=== PATIENT | female | born 1950 | race Caucasian/White ===

== ENCOUNTER → 2016-10-18 | Outpatient (CLI) | payer BC ==
[~2016-10-18] MED LIST: CALCTAB5 PO; CLR/5 PO; CRAN1CAP15 PO; GLUCOSAMINE CHON PO; HYDR-5688 PO; LORA-741 PO; MELA1TAB5 PO; MSM PO; MULT-506 PO; OMEP40CA PO; TRIA3AER NAE; red yeast rice PO
[2016-10-18 13:34] LABS: CREATININE 0.92 mg/dl (0.60-1.20)
== END | disposition home or self-care (01) ==
LOC: C.LAB 14:32
PROVIDERS: ATTEND Otolaryngology
DX: C76.0 Malignant neoplasm of head, face and neck (principal)

== ENCOUNTER → 2016-12-03 | Outpatient (CLI) | payer BC ==
[2016-12-07 18:31] LABS: MUMPS IgG VALUE 3.24; MUMPS VIRUS ANTIBODY IGM <1:20
== END | disposition home or self-care (01) ==
LOC: C.LABSPEC 15:19
PROVIDERS: ATTEND Internal Medicine
DX: K11.20 Sialoadenitis, unspecified (principal)

== ENCOUNTER → 2016-12-14 | Outpatient (CLI) | payer BC ==
[2016-12-14 14:00] LABS: BLOOD UREA NITROGEN 10 mg/dl (7-18); BUN/CREATININE RATIO 11.3 (10-20); CARBON DIOXIDE 29 mmol/L (21-32); CHLORIDE 104 mmol/L (98-107); CREATININE 0.87 mg/dl (0.60-1.20); GLUCOSE 149 mg/dl (70-99); POTASSIUM 3.5 mmol/L (3.5-5.1); SODIUM 141 mmol/L (136-145)
== END | disposition home or self-care (01) ==
LOC: C.LABSPEC 12:19
PROVIDERS: ATTEND Internal Medicine
DX: R51 Headache (principal)

== ENCOUNTER → 2016-12-18 | Outpatient (CLI) | payer BC ==
[~2016-12-18] MED LIST changes: +GADAVIST IV PRN
--- NOTE | 2016-12-18 08:01 | DIAGNOSTIC IMAGING REPORT ---
MRI OF THE BRAIN WITHOUT AND WITH IV CONTRAST CLINICAL HISTORY: Severe headaches. 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 COMPARISON STUDY: No previous studies for comparison. TECHNIQUE: MRI of the brain was performed from the vertex to the skull base utilizing various T1 and T2 weighted sequences. Following the IV administration of 6 mL of Gadavist contrast, additional enhanced images were obtained. FINDINGS: Sagittal T1, axial diffusion, proton density and T2 weighted axial, coronal FLAIR, and pre and post axial T1-weighted images were acquired. These were supplemented with post gadolinium coronal T1 weighted images. No intra or extra-axial mass lesions are visualized. Axial diffusion-weighted images reveal no evidence of acute or subacute infarction. There is no evidence of ventricular dilatation. Proton density T2-weighted and FLAIR images reveal minimal foci of increased T2 signal within the white matter, likely on a small vessel basis. There are no abnormal flow voids. There is no evidence of pathologic enhancement. There are extensive foci of increased T2 signal within the mastoids, likely an inflammatory basis. On the left there is extension to the petrous apex. There is bilateral maxillary sinus mucosal disease within the left maxilla sinus air-fluid level. Inflammatory changes are present within the ethmoid and sphenoid sinuses. There is mild mucosal thickening involving the frontal sinus. IMPRESSION: 1. Extensive sinus disease, most pronounced involving the mastoids, with involvement of the left petrous apex. 2. No evidence of intracranial mass. No evidence of acute or subacute infarction Electronically signed by: Ronak Balderas M.D. 12/18/2016 8:00 AM Dictated Date/Time: 12/18/2016 7:55 AM
== END | disposition home or self-care (01) ==
LOC: C.MRI 06:47
PROVIDERS: ATTEND Internal Medicine
DX: C44.42 Squamous cell carcinoma of skin of scalp and neck (principal); R51 Headache; J32.9 Chronic sinusitis, unspecified

== ENCOUNTER → 2017-03-13 | Outpatient (CLI) | payer OTHER ==
[~2017-03-13] MED LIST changes: -GADAVIST IV PRN
--- NOTE | 2017-03-13 14:48 | MAMMOGRAPHY REPORT ---
BILATERAL DIGITAL SCREENING MAMMOGRAM WITH CAD: 03/13/2017 CLINICAL HISTORY: Routine screening. Patient has no complaints. TECHNIQUE: Current study was also evaluated with a Computer Aided Detection (CAD) system. Bilateral CC and MLO views were obtained. COMPARISON: Comparison is made to exams dated: 03/12/2016 mammogram, 03/10/2015 mammogram, 03/01/2014 ma mmogram, 02/24/2013 mammogram, 02/07/2012 mammogram, and 01/31/2011 mammogram - [facility]. BREAST COMPOSITION: There are scattered areas of fibroglandular density in both breasts. FINDINGS: No suspicious masses, calcifications, or areas of architectural distortion are noted in ei ther breast. There has been no significant interval change compared to prior exams. Bilateral asymme tries are stable. A biopsy marker clip in the left upper outer quadrant is again noted. IMPRESSION: ACR BI-RADS CATEGORY 2: BENIGN There is no mammographic evidence of malignancy. A 1 year screening mammogram is recommended. The pa tient will receive written notification of the results. Approximately 10% of breast cancers are not detected with mammography. A negative mammographic report should not delay biopsy if a clinically suggestive mass is present. Juliet Alexis M.D. /:03/13/2017 12:36:58 Content Development Specialist: Claribel Donovan, [facility] letter sent: Normal 1/2 BI-RADS Code: ACR BI-RADS Category 2: Benign
== END | disposition home or self-care (01) ==
LOC: C.MAMM 12:15
PROVIDERS: ATTEND Obstetrics & Gynecology
DX: Z12.31 Encounter for screening mammogram for malignant neoplasm of breast (principal)

== ENCOUNTER → 2017-03-15 | Outpatient (CLI) | payer OTHER | END | disposition home or self-care (01) | LOC: C.LAB1850 10:07 | PROVIDERS: ATTEND Obstetrics & Gynecology | DX: N83.201 Unspecified ovarian cyst, right side (principal) ==

== ENCOUNTER → 2017-03-15 | Outpatient (CLI) | payer OTHER | END | disposition home or self-care (01) | LOC: C.PAPS 03-14 11:43 | PROVIDERS: ATTEND Obstetrics & Gynecology | DX: Z12.4 Encounter for screening for malignant neoplasm of cervix (principal); N81.10 Cystocele, unspecified; N81.4 Uterovaginal prolapse, unspecified ==

== ENCOUNTER → 2017-04-09 | Outpatient (CLI) | payer OTHER ==
--- NOTE | 2017-04-09 12:15 | DIAGNOSTIC IMAGING REPORT ---
CAROTID DOPPLER NECK ART HISTORY: Mental status change SQUAMOUS CELL SKIN CANCER ;HX THYROID CA COMPARISON: None. TECHNIQUE: Real-time, grayscale, and color Doppler sonography of the carotid arteries was performed. Imaging reviewed in the transverse and longitudinal planes. All measurements were calculated based on NASCET criteria. FINDINGS: Antegrade flow is seen in the bilateral vertebral arteries. The brachial pressures are hemodynamically similar. Mild plaque formation bilaterally The peak systolic velocity within the right ICA is 87. The right systolic ratio is 1.0. The peak systolic velocity within the left ICA is 83. The left systolic ratio is 1.0. IMPRESSION: Mild plaque formation. No significant stenosis. The above report was generated using voice recognition software. It may contain grammatical, syntax or spelling errors. Electronically signed by: Damien Holland M.D. 04/09/2017 12:13 PM Dictated Date/Time: 04/09/2017 12:12 PM
== END | disposition home or self-care (01) ==
LOC: C.ULTR 11:25
PROVIDERS: ATTEND Internal Medicine Hematology & Oncology
DX: C44.49 Other specified malignant neoplasm of skin of scalp and neck (principal); I65.23 Occlusion and stenosis of bilateral carotid arteries; Z85.850 Personal history of malignant neoplasm of thyroid

== ENCOUNTER → 2017-09-19 | Outpatient (CLI) | payer OTHER ==
--- NOTE | 2017-09-19 16:10 | DIAGNOSTIC IMAGING REPORT ---
CT SCAN OF THE PARANASAL SINUSES CLINICAL HISTORY: Allergic rhinitis. History of squamous cell carcinoma. COMPARISON STUDY: CT of the brain dated 04/30/2017. MRI of the brain dated 04/30/2017. TECHNIQUE: High-resolution CT scan of the paranasal sinuses is performed. Images are reviewed in the axial, sagittal, and coronal planes. IV contrast was not administered for this examination. The examination is performed using the fusion protocol. A dose lowering technique was utilized adhering to the principles of ALARA. CT DOSE: 621.20 mGy.cm FINDINGS: Postoperative change: There is evidence of left maxillary antrectomy with antrostomy formation and left-sided ethmoid sinus resection. There has been widening of the left frontoethmoidal recess. Maxillary antra: There is mild to moderate mucosal thickening seen bilaterally. Anterior ethmoid sinuses: Moderate mucosal thickening is seen bilaterally. Posterior ethmoid sinuses: Mild mucosal thickening is seen bilaterally. Sphenoid sinuses: Mild mucosal thickening is seen bilaterally. Frontal sinuses: Trace mucosal thickening is seen bilaterally. Ostiomeatal complexes: The left maxillary antrostomy is widely patent. There is near complete occlusion of the right ostiomeatal complex. Frontoethmoidal and sphenoethmoidal recesses: The right frontoethmoidal recess appears occluded. The left frontal recess is widely patent. The sphenoid recesses are patent, noting narrowing on the right secondary to mucosal thickening. Carotid arteries: The carotid arteries are covered and without septal attachments. Ethmoid roofs: The left ethmoid roof is surgically absent. There has also been resection of the medial wall of the left orbit and a portion of the left nasal bone. Nasal turbinates: The left middle nasal turbinate is surgically absent. Nasal septum: There is mild left lower deviation of the bony nasal septum. Optic nerves: Covered. Orbits: The medial wall of the left orbit is been resected. The bony orbits are otherwise intact. A calcification is noted in the left ocular globe. Orbital contents are otherwise normal in appearance. Calvarium: The imaged calvarium appears intact. Mastoid air cells: There are small right and trace left mastoid effusions. Brain parenchyma: There is bifrontal edema which appears increased from the 04/30/2017 examination. IMPRESSION: 1. There is edema present within the frontal lobes bilaterally, which appears increased from 04/30/2017. This could represent neoplastic involvement, posttreatment change, or less likely infection. Clinical correlation will be essential. 2. Postoperative changes as above including resection of the left ethmoid roof, the medial wall of the left orbit, and a portion of the left nasal bone in addition to the above paranasal sinus findings. 3. Paranasal sinus disease as above. 4. Mastoid effusions. Electronically signed by: Saul Kemp M.D. 09/19/2017 4:08 PM Dictated Date/Time: 09/19/2017 4:00 PM
== END | disposition home or self-care (01) ==
LOC: C.CTS 15:48
PROVIDERS: ATTEND Physician Assistant
DX: J30.81 Allergic rhinitis due to animal (cat) (dog) hair and dander (principal); H74.90 Unspecified disorder of middle ear and mastoid, unspecified ear; J32.9 Chronic sinusitis, unspecified

== ENCOUNTER → 2017-10-02 | Outpatient (CLI) | payer OTHER ==
[2017-10-02 13:29] LABS: BLOOD UREA NITROGEN 12 mg/dl (7-18); CALCIUM 9.1 mg/dl (8.5-10.1); CARBON DIOXIDE 30 mmol/L (21-32); CREATININE 0.83 mg/dl (0.60-1.20); GLUCOSE 92 mg/dl (70-99); POTASSIUM 3.6 mmol/L (3.5-5.1); SODIUM 141 mmol/L (136-145)
[2017-10-02 13:41] LABS: CHOLESTEROL 220 mg/dl (0-200); LDL CHOLESTEROL (DIRECT) 143 mg/dl
== END | disposition home or self-care (01) ==
LOC: C.LABSPEC 12:14
PROVIDERS: ATTEND Internal Medicine
DX: Z00.00 Encounter for general adult medical examination without abnormal findings (principal); E03.9 Hypothyroidism, unspecified

== ENCOUNTER 2021-09-08 21:16 | Inpatient (IN) ==
[2021-09-08] MEDS ORDERED: ONDANSETRON INJ 2 MG/ML 2 ML VIAL IV STA (21:30)
[2021-09-08] MEDS ORDERED: fentaNYL citrate 100 MCG/2 ML VIAL ONE (21:32)
[2021-09-08] MEDS: fentaNYL citrate 100 MCG/2 ML VIAL IV PRN ×3 (21:58→23:25)
--- NOTE | 2021-09-08 22:18 | Emergency Department Note ---
Impression & Plan Abdominal pain, acute ED Provider Note INFORMANT: Patient ED PROVIDER(S): Kristian King MD CHIEF COMPLAINT: Abdominal pain PLAN: Disposition: Admitted Condition: Good Outpatient prescription management: none Referral: None MEDICAL DECISION MAKING: Patient presented to the emergency department because of acute abdominal pain. She was quite uncomfortable and required multiple doses of IV fentanyl for symptom control. She underwent CT imaging without contrast and this revealed a large amount of free air. G-tube appeared to be in good position. Some free fluid also noted. Consultation was made with Dr. Rodriguez of gastroenterology who is covering for Dr. Gonzalez. We discussed the case and presentation. We reviewed the diagnostics. Patient CBC did show mild leukocytosis. Repeat CT with IV and a small amount of contrast in the G-tube was determined to be the next step to evaluate for any possible perforation, leaking, or other complication. The patient underwent CT imaging with the contrast. No obvious extravasation was noted per radiology. No hemorrhage noted. There was free fluid noted in the pelvis and the right paracolic gutter. Hemoperitoneum was redemonstrated. Dr. Rodriguez recommended surgical consultation and will be available for additional consultation as well. I discussed the case with Dr. Otero of general surgery. Given the findings he recommended patient be admitted to the hospital service for observation and pain control. He will consult on the patient. He is reviewing the CT imaging. He felt at this point emergent surgical intervention is not necessary. I did discuss the possibility of a prophylactic dose of antibiotics and he agreed. The patient was given a dose of IV Rocephin and Flagyl. I did discuss this with the pharmacist. Patient and family were updated. Consultation was made [facility] hospitalist service. Dr. Corrales will admit the patient. Triage Nursing notes reviewed and agree them. Vital Signs: reviewed and remarkable for no significant abnormalities Differential diagnosis: Complication of G-tube, appendicitis, infections, diverticulitis, UTI, obstruction, mesenteric ischemia, aortic pathology, inflammatory bowel disease, renal colic, PUD, pancreatitis, biliary pathology, hernia, volvulus, constipation, as well as other pathologies. Diagnostics interpreted by me: ECG: none Cardiac Monitoring: Cardiac monitoring ordered by me: The patient was placed on continuous cardiac monitoring and observed. It revealed a normal sinus rhythm at 70 beats per minute without ectopy or evidence of dysrhythmia. Imaging studies: CT scans as outlined above. I refer you to the EMR for further details. HPI: The patient is a 71 year old female who presents to the Emergency Room with complaints of abdominal pain. This started this afternoon and is rapidly worsening. The patient also notes the following associated symptoms, none. The patient had a G-tube placed today by Dr. Gonzalez. She has had problems with swallowing dysfunction and aspiration. She underwent the procedure without difficulty. At home she was given 120 mL feeding and 120 mL flush. She developed acute worsening of her discomfort in the mid aspect of her abdomen. EMS was summoned. She was given IV fentanyl with some relief of her discomfort. Current pain is rated as 7/10. Pt denies LOC, headache, fevers, chills, diaphoresis, visual changes, neck pain, chest pain, breathing difficulties, nausea, vomiting, back pain, melena, hematochezia, urinary symptoms, numbness, weakness, lymphadenopathy, rash, or other complaints. ROS: See above HPI for pertinent positives & negatives. A total of 10 systems reviewed and were otherwise negative. PAST MEDICAL HISTORY:See Below , anemia, skin cancer PAST SURGICAL HISTORY:See Below, G-tube FAMILY HISTORY:See Below SOCIAL HISTORY:See Below, no alcohol. HOME MEDICATIONS:See Below ALLERGIES:See Below VITALS:See Below PHYSICAL EXAMINATION: GENERAL: Awake, alert, very uncomfortable-appearing, in mild distress HENT: Normocephalic, atraumatic. Oropharynx unremarkable. EYES: Normal conjunctiva. Sclera non-icteric. NECK: Inspection normal. Non-tender. Supple. No nuchal rigidity. FROM. No masses. RESPIRATORY: Clear to auscultation. No wheezes. No rales. Normal respiratory effort. CARDIAC: Normal rate. Normal rhythm. No murmurs. No rubs. Extremities warm and well perfused. Pulses equal. No JVD. GI: Soft, non-distended. Diffuse but mostly midline tenderness to palpation. No rebound but moderate guarding. No masses. G-tube in position without signs of bleeding or infection. RECTAL: Deferred. MUSCULOSKELETAL: Atraumatic. Chest examination reveals no tenderness. The back is symmetrical on inspection without obvious abnormality. There is no CVA tenderness to palpation. No joint edema. LOWER EXTREMITIES: Calves are equal size bilaterally and non-tender. No edema. No discoloration. NEURO: Normal sensorium. No sensory or motor deficits noted. SKIN: No rash or jaundice noted. 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, chemo (2009), proton pump treatment/radiation Sensorineural hearing loss (SNHL) of both ears Vaginal pessary present STILL INTACT Surgical History History of anesthesia reaction "Small mouth opening" > has had to have pediatric tube in past S/P Right foot cheilectomy (05/27/19): LMA#3 at [facility] [place] History of breast biopsy History of cataract surgery R/L History of colonoscopy History of dilatation and curettage History of endoscopic sinus surgery x2 (removal of cancer and then to open up sinus) History of esophagogastroduodenoscopy (EGD) History of foot surgery Right foot cheilectomy (05/27/19): LMA#3 at [facility] [place] History of placement of ear tubes History of surgical removal of ganglion cyst History of temporal artery biopsy (08/16/21) Bilateral Temporal Artery Biopsy Dr. Claire 08/16/2021 History of tonsillectomy and adenoidectomy Hx of eye surgery Attempted to open tear ducts Hx of lymph node excision r/t cancer Family History Mother Family hx of colon cancer Colorectal cancer Cancer Father Diabetes Acute myocardial infarction Heart disease Family/Other Breast cancer Grandmother (Paternal) Breast cancer Grandmother (Maternal) Diabetes Other No family history of adverse response to anesthesia Social History Smoking Status: Unknown if ever smoked Second Hand Exposure: Yes ( A CHILD/FATHER SMOKED); Hx Alcohol Use: No Preferred Language: Mauritian Communication Ability: Effective Piling Setter Required: No Beliefs That Will Affect Care: None marital status: Current Living Situation: Spouse current occupational status: retired How many Children do You have: 4 Feels Safe at Home: Yes during the past year weight has: decreased > 10 lbs Assistive Devices: Glasses and Hearing Aid - Bilateral Allergies Allergies Allergy/AdvReac Type Severity Reaction Status Date / Time budesonide Allergy Severe Dyspnea, Verified 09/08/21 10:46 irritability, swelling sucralfate Allergy Intermediate Dyspnea Verified 09/08/21 10:46 adhesive Allergy Mild Rash Verified 09/08/21 10:46 cefadroxil AdvReac Intermediate Gastrointestinal Verified 09/08/21 10:46 Upset escitalopram [From Lexapro] AdvReac Intermediate nausea Verified 09/08/21 10:46 tramadol AdvReac Intermediate Syncopal Verified 09/08/21 10:46 episode diclofenac AdvReac Mild Headache Verified 09/08/21 10:46 oxycodone AdvReac Mild Hallucinati Verified 09/08/21 10:46 ons Penicillins AdvReac Mild Gastrointestinal Verified 09/08/21 10:46 Upset Home Meds Home Medications Medication Instructions Recorded Confirmed levothyroxine 50 mcg capsule 50 mcg PO DAILY 02/12/19 09/08/21 lorazepam 0.5 mg tablet 0.5 mg PO HS PRN 02/12/19 09/08/21 multivitamin 1 cap PO QAM 02/12/19 09/08/21 atorvastatin 10 mg tablet (Lipitor) 10 mg PO QDD 03/25/19 09/08/21 triamcinolone acetonide 55 mcg 2 spray INTNAS QAM ml 05/10/21 09/08/21 nasal spray aerosol (Nasacort) ascorbic acid (vitamin C) 250 mg 250 mg PO QAM 08/06/21 09/08/21 tablet (Vitamin C) cholecalciferol (vitamin D3) 25 25 mcg PO QAM 08/06/21 09/08/21 mcg (1,000 unit) capsule (Vitamin D3) cyclosporine 0.05 % eye drops in a 1 drp OPB BID 08/06/21 09/08/21 dropperette (Restasis) glucosamine 750 zw-gveyorwcfif-ijb 1 tab PO QAM tab 08/10/21 09/08/21 no1 644 mg-C 30 mg-kasandra 1 mg tablet (Osteo Bi-Flex Triple Strength) ykjqjgy-wrsndb-dzgdfp oil 0.12 1 g TOPICAL DAILY 08/10/21 09/08/21 mg-87 mg-788 mg/g topical gel Eye Vitamin Ointment 1 dose TOPICAL HS 08/14/21 09/08/21 sodium bicarbonate-sodium 40 ea .ROUTE BID 08/14/21 09/08/21 chloride-neti pot nasal rinse with packet ([place] Saline Nasal Neti Rinse) pantoprazole 40 mg tablet,delayed 40 mg PO HS 09/05/21 09/08/21 release prednisone 50 mg tablet 50 mg PO QAM 09/05/21 09/08/21 trazodone 50 mg tablet 50 mg PO DAILY 09/05/21 09/08/21 loteprednol etabonate 0.5 % eye 1 drp OPHTHALMIC (EYE) QID 09/08/21 09/08/21 drops,suspension (Lotemax) Previous Rx's Medication Instructions Recorded mupirocin 2 % topical ointment 1 applic TOP BID #15 gm 09/20/20 desloratadine 5 mg tablet 5 mg PO QAM #90 tab 05/15/21 (Clarinex) estradiol 1 g PV 2XWK #42.5 gm 06/13/21 ofloxacin 0.3 % ear drops See Rx Instructions OTIC (EAR) BID 07/21/21 10 Days #10 ml famotidine 40 mg tablet 40 mg PO QAM #30 tab 09/04/21 Results & Data (ED) Vital Signs Vital Signs - 24 hr 09/08/21 21:30 09/08/21 21:35 09/08/21 23:00 Temperature 36.4 C L Temperature Source Oral Pulse Rate 53 L Pulse Rate [Finger] 58 L Pulse Rhythm Regular Respiratory Rate 18 18 Respiratory Effort / Characteristics Non-Labored Spontaneous Respiratory Depth Normal Respiratory Pattern Blood Pressure 114/81 Blood Pressure [Left Arm] 105/66 Blood Pressure Mean 92 Blood Pressure Mean [Left Arm] 79 Blood Pressure Position [Left Arm] Pulse Oximetry 98 97 99 Oxygen Delivery Method Room Air Room Air Room Air Sepsis Recent Fever Within 48 Hours No Sepsis New/Unexplained Change in Mental Status No Sepsis Action Taken by Nursing No Action Required 09/09/21 01:00 Temperature Temperature Source Pulse Rate Pulse Rate [Finger] 70 Pulse Rhythm Respiratory Rate 18 Respiratory Effort / Characteristics Non-Labored Spontaneous Respiratory Depth Normal Respiratory Pattern Regular Blood Pressure Blood Pressure [Left Arm] 121/75 Blood Pressure Mean Blood Pressure Mean [Left Arm] 90 Blood Pressure Position [Left Arm] Sitting Pulse Oximetry 97 Oxygen Delivery Method Room Air Sepsis Recent Fever Within 48 Hours Sepsis New/Unexplained Change in Mental Status Sepsis Action Taken by Nursing Laboratory Data Result diagrams: 09/08/21 22:40 09/08/21 22:40 Lab Results 09/08/21 09/08/21 Range/Units 22:40 22:40 WBC 10.96 H (4.8-10.8) K/uL RBC 5.03 (4.2-5.4) M/uL Hgb 14.5 (12.0-16.0) g/dL Hct 45.7 (37-47) % MCV 90.9 (80-100) fL MCH 28.8 (25-34) pg MCHC 31.7 L (32-36) g/dL RDW Std Deviation 58.2 H (36.4-46.3) fL RDW Coeff of Lucien 17.6 H (11.5-14.5) % Plt Count 244 (130-400) K/uL MPV 8.4 (7.4-10.4) fL Immature Gran % (Auto) 0.5 % Neut % (Auto) 94.1 % Lymph % (Auto) 3.0 % [place] % (Auto) 2.3 % Eos % (Auto) 0.0 % Baso % (Auto) 0.1 % Neut # (Auto) 10.32 H (1.4-6.5) K/uL Lymph # (Auto) 0.33 L (1.2-3.4) K/uL [place] # (Auto) 0.25 (0.11-0.59) K/uL Eos # (Auto) 0.00 (0-0.5) K/uL Baso # (Auto) 0.01 (0-0.2) K/uL Immature Gran # (Auto) 0.05 H (0.00-0.02) K/uL Sodium 142 (136-145) mmol/L Potassium 4.4 (3.5-5.1) mmol/L Chloride 107 (98-107) mmol/L Carbon Dioxide 29 (21-32) mmol/L Anion Gap 6.0 (3-11) BUN 32 H (7-18) mg/dl Creatinine 1.08 (0.6-1.2) mg/dl Est Cr Clr Drug Dosing 37.0 ml/min Est GFR ( Amer) 60.7 ml/min Est GFR (Non-Af Amer) 52.3 ml/min BUN/Creatinine Ratio 29.5 H (10-20) Glucose 205 H (70-99) mg/dl Calcium 9.6 (8.5-10.1) mg/dl Total Bilirubin 0.4 (0.2-1) mg/dl AST 11 L (15-37) U/L ALT 27 (12-78) Alkaline Phosphatase 67 (45-117) U/L Total Protein 7.0 (6.4-8.2) gm/dl Albumin 3.1 L (3.4-5.0) gm/dl Globulin 3.9 (2.5-4.0) gm/dl Albumin/Globulin Ratio 0.8 L (0.9-2) Lipase 236 (73-393) U/L Administered Medications Metronidazole (Flagyl) 500 mg in 100 mls @ 100 mls/hr IV ONE STA Stop: 09/09/21 02:37 Last Admin: 09/09/21 02:01 Dose: 100 mls/hr Documented by: [id number] Discontinued Medications Fentanyl Citrate (Fentanyl Citrate 100 Mcg/2 Ml Vial) 50 mcg IV Q15M PRN PRN Reason: Pain Stop: 09/22/21 21:29 Last Admin: 09/09/21 00:40 Dose: 50 mcg Documented by: [id number] Admin: 09/08/21 23:25 Dose: 50 mcg Documented by: [id number] Admin: 09/08/21 22:43 Dose: 50 mcg Documented by: [id number] Admin: 09/08/21 21:58 Dose: 50 mcg Documented by: [id number] Ioversol (Optiray 320 100ml) 92 ml IV ONCE ONE Stop: 09/09/21 00:08 Last Admin: 09/09/21 00:08 Dose: 92 ml Documented by: [id number] Ondansetron HCl (Ondansetron Inj 2 Mg/Ml 2 Ml Vial) 4 mg IV NOW STA Stop: 09/08/21 21:31 Last Admin: 09/08/21 22:57 Dose: Not Given Documented by: [id number] Imaging Data Radiologist's Impression: Abdomen/Pelvis CT 09/08/21 21:[address] WITHOUT CONTRAST CT DOSE: 266.49 mGy.cm HISTORY: Acute severe mid abdominal pain status post placement of a feeding tube. severe mid abd pain s/p feeding tube done today TECHNIQUE: Multiaxial CT images of the abdomen and pelvis were performed without contrast. A dose lowering technique was utilized adhering to the principles of ALARA. COMPARISON STUDY: PET CT 03/28/2016 FINDINGS: Coronary artery calcifications. The imaged inferior cardiac chambers are unremarkable. Trace pericardial effusion. Clear lung bases. Large amount of pneumoperitoneum is noted with a gastrostomy tube in place. The balloon is present within the gastric body. Subcutaneous emphysema and edema is noted within the subcutaneous tissues adjacent to the catheter, expected postprocedural changes. No definite gastric, large or small bowel injury identified. The unenhanced spleen, pancreas and adrenal glands are unremarkable. Cholelithiasis without CT evidence of acute cholecystitis. Unremarkable liver. The kidneys are within normal limits. No hydronephrosis. Partial distention of the urinary bladder. Vaginal pessary. 3.3 x 3.1 cm cystic lesion of the right adnexum has increased in size from prior where it measured 2.2 cm. No abdominal aortic aneurysm. No adenopathy. Fluid-filled distal esophagus with tiny hiatal hernia. No bowel obstruction. Moderate fecal retention. The appendix is not definitively seen. Trace abdominal pelvic ascites. Unremarkable soft tissues. No acute fracture. Degenerative changes of the spine, pelvis and hips. IMPRESSION: 1. Status post placement of a gastrostomy tube which appears to be in satisfactory positioning with the inflated balloon within the gastric body. There is a large amount of pneumoperitoneum with trace abdominal pelvic ascites. No definite gastric or bowel wall injury definitively seen. These may be on a postprocedural basis. 2. No bowel obstruction. 3. Colonic diverticulosis. 4. Moderate fecal retention. 5. Additional findings as above. ACT 112: Negative or not required by law. The above report was generated using voice recognition software. It may contain grammatical, syntax or spelling errors. Electronically signed by: Souleymane Vasquez M.D. 09/08/2021 10:31 PM Discharge Plan Visit Data Chief Complaint: Abdominal Pain Stated Complaint: Abdominal Pain ED Provider: Kristian King Discharge Problem: Abdominal pain, acute Forms Stand Alone Forms: My [facility] Prescriptions Prescriptions: No Action triamcinolone acetonide [Nasacort] 55 mcg aerosol,spray 2 spray INTNAS QAM RF: 0 mupirocin 2 % ointment 1 applic TOP BID Qty: 15 RF: 11 famotidine 40 mg tablet 40 mg PO QAM Qty: 30 RF: 6 estradiol 0.01 % (0.1 mg/gram) cream 1 g PV 2XWK Qty: 42.5 RF: 3 desloratadine [Clarinex] 5 mg tablet 5 mg PO QAM Qty: 90 RF: 3 vgzdqco-zarkkm-cujdxn oil 0.12-87-788 mg/g gel 1 g topical DAILY RF: 0 Osteo Bi-Flex Triple Strength 750 mg-644 mg- 30 mg-1 mg tablet 1 tab PO QAM RF: 0 ofloxacin 0.3 % drops See Rx Instructions otic (ear) BID 10 Days Qty: 10 RF: 2 lorazepam 0.5 mg Tablet 0.5 mg PO HS PRN (Reason: Sleep) RF: 0 multivitamin Capsule 1 cap PO QAM RF: 0 levothyroxine 50 mcg Capsule 50 mcg PO DAILY RF: 0 atorvastatin [Lipitor] 10 mg Tablet 10 mg PO QDD RF: 0 pantoprazole 40 mg Tablet,Delayed Release (Dr/Ec) 40 mg PO HS RF: 0 prednisone 50 mg Tablet 50 mg PO QAM RF: 0 trazodone 50 mg tablet 50 mg PO DAILY RF: 0 loteprednol etabonate [Lotemax] 0.5 % Drops,Suspension 1 drp OPHTHALMIC (EYE) QID RF: 0 ascorbic acid (vitamin C) [Vitamin C] 250 mg Tablet 250 mg PO QAM RF: 0 cholecalciferol (vitamin D3) [Vitamin D3] 25 mcg (1,000 unit) Capsule 25 mcg PO QAM RF: 0 Restasis 0.05 % dropperette 1 drp OPB BID RF: 0 Eye Vitamin Ointment 1 dose topical HS RF: 0 [place] Saline Nasal Neti Rinse Packet With Rinse Device 40 ea .Route BID RF: 0 Referrals Referrals: Gerald Solis MD [Primary Care Provider] -
--- NOTE | 2021-09-08 22:32 | CT Scan Report ---
ABDOMEN AND PELVIS CT WITHOUT CONTRAST CT DOSE: 266.49 mGy.cm HISTORY: Acute severe mid abdominal pain status post placement of a feeding tube. severe mid abd obdulia n s/p feeding tube done today TECHNIQUE: Multiaxial CT images of the abdomen and pelvis were performed without contrast. A dose lo wering technique was utilized adhering to the principles of ALARA. COMPARISON STUDY: PET CT 03/28/2016 FINDINGS: Coronary artery calcifications. The imaged inferior cardiac chambers are unremarkable. Trace pericard ial effusion. Clear lung bases. Large amount of pneumoperitoneum is noted with a gastrostomy tube in place. The balloon is present within the gastric body. Subcutaneous emphysema and edema is noted with in the subcutaneous tissues adjacent to the catheter, expected postprocedural changes. No definite ga stric, large or small bowel injury identified. The unenhanced spleen, pancreas and adrenal glands are unremarkable. Cholelithiasis without CT eviden ce of acute cholecystitis. Unremarkable liver. The kidneys are within normal limits. No hydronephrosi s. Partial distention of the urinary bladder. Vaginal pessary. 3.3 x 3.1 cm cystic lesion of the righ t adnexum has increased in size from prior where it measured 2.2 cm. No abdominal aortic aneurysm. No adenopathy. Fluid-filled distal esophagus with tiny hiatal hernia. No bowel obstruction. Moderate fecal retention . The appendix is not definitively seen. Trace abdominal pelvic ascites. Unremarkable soft tissues. N o acute fracture. Degenerative changes of the spine, pelvis and hips. IMPRESSION: 1. Status post placement of a gastrostomy tube which appears to be in satisfactory positioning with t he inflated balloon within the gastric body. There is a large amount of pneumoperitoneum with trace a bdominal pelvic ascites. No definite gastric or bowel wall injury definitively seen. These may be on a postprocedural basis. 2. No bowel obstruction. 3. Colonic diverticulosis. 4. Moderate fecal retention. 5. Additional findings as above. ACT 112: Negative or not required by law. The above report was generated using voice recognition software. It may contain grammatical, syntax o r spelling errors. Electronically signed by: Souleymane Vasquez M.D. 09/08/2021 10:31 PM
[2021-09-08 22:47] LABS: Basophils # (auto) 0.01 K/uL (0-0.2); Basophils % (auto) 0.1 %; Hematocrit (blood only) 45.7 % (37-47); Hemoglobin 14.5 g/dL (12.0-16.0); Immature Granulocytes # (auto) 0.05 K/uL (0.00-0.02); Immature Granulocytes % (auto) 0.5 %; Lymphocytes # (auto) 0.33 K/uL (1.2-3.4); Mean Corpuscular Hemoglobin 28.8 pg (25-34); Mean Corpuscular Hgb Conc 31.7 g/dL (32-36); Mean Corpuscular Volume 90.9 fL (80-100); Mean Platelet Volume 8.4 fL (7.4-10.4); Monocytes # (auto) 0.25 K/uL (0.11-0.59); Monocytes % (auto) 2.3 %; Neutrophils # (auto) 10.32 K/uL (1.4-6.5); Neutrophils % (auto) 94.1 %; Platelet Count 244 K/uL (130-400); RDW Coefficient of Variation 17.6 % (11.5-14.5); RDW Standard Deviation 58.2 fL (36.4-46.3); Red Blood Count 5.03 M/uL (4.2-5.4); White Blood Count 10.96 K/uL (4.8-10.8)
[2021-09-08 23:04] LABS: Albumin Level 3.1 gm/dl (3.4-5.0); BUN Creatinine Ratio 29.5 (10-20); Calcium 9.6 mg/dl (8.5-10.1); Est GFR (African American) 60.7 ml/min; Est GFR (Non-African American) 52.3 ml/min; Potassium 4.4 mmol/L (3.5-5.1)
[2021-09-08 23:07] LABS: Albumin Globulin Ratio 0.8 (0.9-2); Bilirubin,Total 0.4 mg/dl (0.2-1); Globulin 3.9 gm/dl (2.5-4.0)
[2021-09-09] MEDS ORDERED: OPTIRAY 320 100ml IV ONE (00:07)
[2021-09-09] MEDS ORDERED: fentaNYL citrate 100 MCG/2 ML VIAL ONE (00:37)
[2021-09-09] MEDS: fentaNYL citrate 100 MCG/2 ML VIAL IV PRN (00:40)
[2021-09-09] MEDS ORDERED: metroNIDAZOLE 500 MG/100 ML BAG IV STA (01:38)
--- NOTE | 2021-09-09 01:45 | Communication Note ---
Patient case discussed with ED attending, labs and imaging reviewed. 71 y/o female s/p PEG tube placement by GI today. After starting tube feeds developed severe abd and back pain. AFVSS, per ED abd soft, ttp diffusely with mild guarding, not rigid. WBC 10.96. CT w/ and w/o contrast personally reviewed and interpreted. Moderate pneumoperitoneum, no extravasation of contrast or obvious injury. May be post procedural but more than would normally be expected. Bumper may have loosened slightly from abd wall. No indication for surgical intervention at this time. Recommend medicine admission for overnight observation, repeat KUB in morning. Will follow up in the morning, recommend GI consult. Prophylactic abx for now. DO Shanna Date of Service: September 09, 2021
[2021-09-09] MEDS ORDERED: cefTRIAXone SODIUM 1,000 MG/50 ML BAG IV STA (01:46)
[2021-09-09] MEDS ORDERED: MoRPHine SULFATE 4 MG/ML 1 ML CARP\\VIAL IV PRN ×2 (01:46→04:35)
--- NOTE | 2021-09-09 02:33 | History & Physical Report ---
Date of Service September 09, 2021 Assessment & Plan (1) Abdominal pain, acute: Plan: 71 yo F with pmh ethomoidal squamous cell cancer s/p radiation, radiation induced dysphagia s/p PEG admitted for severe abdominal pain after PEG placement. Abdominal pain s/p PEG - CT A/P wo con showing large amount of pneumoperitoneum, PEG in appropriate location, some fluid in pelvis and LLQ - GI and Surgical consults for evaluation of PEG dysfunction vs. acute perforation with need for surgical management - lactate level pending - severe pain but no peritonitic signs at this time. will monitor closely - NPO, morphine 4 and 2 mg Q3h for pain control - mild WBC elevation, received ceftriaxone & metronidazole IV in ED Positive JENNIE - recent biopsy for temporal arteritis negative - on prednisone taper, currently at 50 mg daily. converted to 7.5 mg methylpred IV while NPO - steroid use likely cause of mild WBC elevation - JENNIE positive, 1:320. 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 Chronic Conditions GERD: IV pantoprazole and famotidine to replace PO famotidine and omeprazole while NPO Hypothyroidism: cont levothyroxine Allergic rhinitis: cont nasal sprays, eye drops PRN Depression: cont trazodone HS DVT ppx: SCDs FEN/GI: NPO no sips no meds Bowel regimen: dulcolax, mag citrate prn Code Status: full code Dispo: PCU (2) Dysphagia: (3) S/P percutaneous endoscopic gastrostomy (PEG) tube placement: History of Present Illness Primary Care Provider: Gerald Solis MD 71 yo F with recent PEG placement on 09/08, brought to ER for severe intractable abdominal pain that started after initiation of first Boost feed at home. Per , she had 120 ml of boost via Peg tube followed by free water flush, and immediately had severe abdominal pain that wouldn't go away. She denies any nausea, emesis, diarrhea. No measured fevers, chills, sweats. She describes the pain as being sharp, located mostly in the mid to lower abdomen, worse with any movement or pressure. ER course: pain control with fentanyl, GI and surgical consult, ceftriaxone & metronidazole x1 Allergies Allergy/AdvReac Type Severity Reaction Status Date / Time budesonide Allergy Severe Dyspnea, Verified 09/08/21 10:46 irritability, swelling sucralfate Allergy Intermediate Dyspnea Verified 09/08/21 10:46 adhesive Allergy Mild Rash Verified 09/08/21 10:46 cefadroxil AdvReac Intermediate Gastrointestinal Verified 09/08/21 10:46 Upset escitalopram [From Lexapro] AdvReac Intermediate nausea Verified 09/08/21 10:46 tramadol AdvReac Intermediate Syncopal Verified 09/08/21 10:46 episode diclofenac AdvReac Mild Headache Verified 09/08/21 10:46 oxycodone AdvReac Mild Hallucinati Verified 09/08/21 10:46 ons Penicillins AdvReac Mild Gastrointestinal Verified 09/08/21 10:46 Upset Home Medications Medication Instructions Recorded Confirmed Type levothyroxine 50 mcg capsule 50 mcg PO DAILY 02/12/19 09/08/21 History lorazepam 0.5 mg tablet 0.5 mg PO HS PRN 02/12/19 09/08/21 History multivitamin 1 cap PO QAM 02/12/19 09/08/21 History atorvastatin 10 mg tablet (Lipitor) 10 mg PO QDD 03/25/19 09/08/21 History mupirocin 2 % topical ointment 1 applic TOP BID #15 gm 09/20/20 09/08/21 Rx triamcinolone acetonide 55 mcg 2 spray INTNAS QAM ml 05/10/21 09/08/21 History nasal spray aerosol (Nasacort) desloratadine 5 mg tablet 5 mg PO QAM #90 tab 05/15/21 09/08/21 Rx (Clarinex) estradiol 1 g PV 2XWK #42.5 gm 06/13/21 09/08/21 Rx ofloxacin 0.3 % ear drops See Rx Instructions OTIC (EAR) BID 07/21/21 09/08/21 Rx 10 Days #10 ml ascorbic acid (vitamin C) 250 mg 250 mg PO QAM 08/06/21 09/08/21 History tablet (Vitamin C) cholecalciferol (vitamin D3) 25 25 mcg PO QAM 08/06/21 09/08/21 History mcg (1,000 unit) capsule (Vitamin D3) cyclosporine 0.05 % eye drops in a 1 drp OPB BID 08/06/21 09/08/21 History dropperette (Restasis) glucosamine 750 [id number]-dru 1 tab PO QAM tab 08/10/21 09/08/21 History no1 644 mg-C 30 mg-kasandra 1 mg tablet (Osteo Bi-Flex Triple Strength) vneqdsq-bxtsie-rgjpoz oil 0.12 1 g TOPICAL DAILY 08/10/21 09/08/21 History mg-87 mg-788 mg/g topical gel Eye Vitamin Ointment 1 dose TOPICAL HS 08/14/21 09/08/21 History sodium bicarbonate-sodium 40 ea .ROUTE BID 08/14/21 09/08/21 History chloride-neti pot nasal rinse with packet ([place] Saline Nasal Neti Rinse) famotidine 40 mg tablet 40 mg PO QAM #30 tab 09/04/21 09/08/21 Rx pantoprazole 40 mg tablet,delayed 40 mg PO HS 09/05/21 09/08/21 History release prednisone 50 mg tablet 50 mg PO QAM 09/05/21 09/08/21 History trazodone 50 mg tablet 50 mg PO DAILY 09/05/21 09/08/21 History loteprednol etabonate 0.5 % eye 1 drp OPHTHALMIC (EYE) QID 09/08/21 09/08/21 History drops,suspension (Lotemax) Past Med/Surg History Medical History (Updated 09/08/21 @ 22:18 by Kristian King MD) Anemia Stable per 08/2021 labs Anxiety Dysphagia Dysphagia r/t radiation Hiatal hernia Hyperlipidemia Hypothyroidism Laryngopharyngeal reflux 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 [place] History of breast biopsy History of cataract surgery R/L History of colonoscopy History of dilatation and curettage History of endoscopic sinus surgery x2 (removal of cancer and then to open up sinus) History of esophagogastroduodenoscopy (EGD) History of foot surgery Right foot cheilectomy (05/27/19): LMA#[address] [facility] [place] History of placement of ear tubes History of surgical removal of ganglion cyst History of temporal artery biopsy (08/16/21) Bilateral Temporal Artery Biopsy Dr. Claire 08/16/2021 History of tonsillectomy and adenoidectomy Hx of eye surgery Attempted to open tear ducts Hx of lymph node excision r/t cancer Family History Mother Family hx of colon cancer Colorectal cancer Cancer Father Diabetes Acute myocardial infarction Heart disease Family/Other Breast cancer Grandmother (Paternal) Breast cancer Grandmother (Maternal) Diabetes Other No family history of adverse response to anesthesia Social History Smoking Status: Never smoker Second Hand Exposure: Yes (dad smoked); Do You Dip or Chew Tobacco: No; Hx Alcohol Use: No Hx Substance Use: No Preferred Language: Tristanian Communication Ability: Effective 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 Beliefs That Will Affect Care: None marital status: Current Living Situation: Spouse current occupational status: retired How many Children do You have: 4 Feels Safe at Home: Yes Safety Concerns: Feels Safe At This Time during the past year weight has: decreased > 10 lbs Assistive Devices: Glasses and Hearing Aid - Bilateral Review of Systems Review of Systems: All systems reviewed & are unremarkable except as noted in Subjective Physical Exam Physical Exam: Constitutional: petite, uncomfortable appearing woman, laying still in bed Eyes: EOMI, pupils equal and reactive bilaterally, no scleral icterus Cardiac: RRR, no murmurs, gallops or rubs. Normal S1, S2 Pulm: CTA BL, no wheezes, rhonchi, crackles or rubs, moving air well throughout both lungs Abd: soft, nondistended, tender to palpation mostly in LLQ, mid-gastric and RLQ. G-tube in place without visible leaking, drainage, erythema surrounding it. Bowel sounds in upper quadrants of abdomen. Extremities: 2+ peripheral pulses, no edema Neuro: no focal deficits, moving all 4 limbs, A&Ox3 Results & Data Results & Data ([facility]) Vital Signs (Past 12 Hours) Vital Signs Temp Pulse Pulse Resp BP BP Pulse Ox 09/09/21 01:00 70 18 121/75 97 09/08/21 23:00 58 L 18 105/66 99 09/08/21 21:35 97 09/08/21 21:30 36.4 C L 53 L 18 114/81 98 Laboratory Results Laboratory Results WBC 10.96 K/uL (4.8-10.8) H 09/08/21 22:40 RBC 5.03 M/uL (4.2-5.4) 09/08/21 22:40 Hgb 14.5 g/dL (12.0-16.0) 09/08/21 22:40 Hct 45.7 % (37-47) 09/08/21 22:40 MCV 90.9 fL (80-100) 09/08/21 22:40 MCH 28.8 pg (25-34) 09/08/21 22:40 MCHC 31.7 g/dL (32-36) L 09/08/21 22:40 RDW Std Deviation 58.2 fL (36.4-46.3) H 09/08/21 22:40 RDW Coeff of Lucien 17.6 % (11.5-14.5) H 09/08/21 22:40 Plt Count 244 K/uL (130-400) 09/08/21 22:40 MPV 8.4 fL (7.4-10.4) 09/08/21 22:40 Immature Gran % (Auto) 0.5 % 09/08/21 22:40 Neut % (Auto) 94.1 % 09/08/21 22:40 Lymph % (Auto) 3.0 % 09/08/21 22:40 [place] % (Auto) 2.3 % 09/08/21 22:40 Eos % (Auto) 0.0 % 09/08/21 22:40 Baso % (Auto) 0.1 % 09/08/21 22:40 Neut # (Auto) 10.32 K/uL (1.4-6.5) H 09/08/21 22:40 Lymph # (Auto) 0.33 K/uL (1.2-3.4) L 09/08/21 22:40 [place] # (Auto) 0.25 K/uL (0.11-0.59) 09/08/21 22:40 Eos # (Auto) 0.00 K/uL (0-0.5) 09/08/21 22:40 Baso # (Auto) 0.01 K/uL (0-0.2) 09/08/21 22:40 Immature Gran # (Auto) 0.05 K/uL (0.00-0.02) H 09/08/21 22:40 Sodium 142 mmol/L (136-145) 09/08/21 22:40 Potassium 4.4 mmol/L (3.5-5.1) 09/08/21 22:40 Chloride 107 mmol/L (98-107) 09/08/21 22:40 Carbon Dioxide 29 mmol/L (21-32) 09/08/21 22:40 Anion Gap 6.0 (3-11) 09/08/21 22:40 BUN 32 mg/dl (7-18) H 09/08/21 22:40 Creatinine 1.08 mg/dl (0.6-1.2) 09/08/21 22:40 Est Cr Clr Drug Dosing 37.0 ml/min 09/08/21 22:40 Est GFR ( Amer) 60.7 ml/min 09/08/21 22:40 Est GFR (Non-Af Amer) 52.3 ml/min 09/08/21 22:40 BUN/Creatinine Ratio 29.5 (10-20) H 09/08/21 22:40 Glucose 205 mg/dl (70-99) H 09/08/21 22:40 Calcium 9.6 mg/dl (8.5-10.1) 09/08/21 22:40 Total Bilirubin 0.4 mg/dl (0.2-1) 09/08/21 22:40 AST 11 U/L (15-37) L 09/08/21 22:40 ALT 27 (12-78) 09/08/21 22:40 Alkaline Phosphatase 67 U/L (45-117) 09/08/21 22:40 Total Protein 7.0 gm/dl (6.4-8.2) 09/08/21 22:40 Albumin 3.1 gm/dl (3.4-5.0) L 09/08/21 22:40 Globulin 3.9 gm/dl (2.5-4.0) 09/08/21 22:40 Albumin/Globulin Ratio 0.8 (0.9-2) L 09/08/21 22:40 Lipase 236 U/L (73-393) 09/08/21 22:40 CT A/P wo con: FINDINGS: Coronary artery calcifications. The imaged inferior cardiac chambers are unremarkable. Trace pericardial effusion. Clear lung bases. Large amount of pneumoperitoneum is noted with a gastrostomy tube in place. The balloon is present within the gastric body. Subcutaneous emphysema and edema is noted within the subcutaneous tissues adjacent to the catheter, expected postprocedural changes. No definite gastric, large or small bowel injury identified. The unenhanced spleen, pancreas and adrenal glands are unremarkable. Cholelithiasis without CT evidence of acute cholecystitis. Unremarkable liver. The kidneys are within normal limits. No hydronephrosis. Partial distention of the urinary bladder. Vaginal pessary. 3.3 x 3.1 cm cystic lesion of the right adnexum has increased in size from prior where it measured 2.2 cm. No abdominal aortic aneurysm. No adenopathy. Fluid-filled distal esophagus with tiny hiatal hernia. No bowel obstruction. Moderate fecal retention. The appendix is not definitively seen. Trace abdominal pelvic ascites. Unremarkable soft tissues. No acute fracture. Degenerative rodríguez ges of the spine, pelvis and hips. IMPRESSION: 1. Status post placement of a gastrostomy tube which appears to be in satisfactory positioning with the inflated balloon within the gastric body. T here is a large amount of pneumoperitoneum with trace abdominal pelvic ascites. No definite gastric or bowel wall injury definitively seen. These may be on a postprocedural basis. 2. No bowel obstruction. 3. Colonic diverticulosis. 4. Moderate fecal retention. 5. Additional findings as above. Supervising Physician Co-Signing Physician Notes Patient seen and examined, chart reviewed, case discussed with Dr. Kwong and I agree with her assessment and plan as above. Recent PEG tube placement. Severe abdominal pain following feed. Does not appear to be perforated by imaging Abdomen is tender. No crepitus. No bleeding, drainage around tube Labs and images reviewed Assessment/Plan -Hold feeds -Pain control -GI assistance appreciated -Remainder as above Resident Activity Tracking Resident Involvement: Resident Care Provided Care Provided: Adult [facility] Medicine
--- NOTE | 2021-09-09 02:34 | Billing Data ---
Date of Service September 09, 2021 Coding Level of Care Code 84903 Initial Inpt Care Lvl 3
[2021-09-09] MEDS ORDERED: SODIUM CHLORIDE 0.9% 1000ML 500 ML IV STA (03:41)
[2021-09-09] MEDS ORDERED: MAGNESIUM CITRATE 296 ML/BTL PO PRN (04:35)
[2021-09-09] MEDS ORDERED: bisacodyL 5 MG TABEC PO PRN (04:35)
[2021-09-09] MEDS ORDERED: ACETAMINOPHEN 1000 MG/100 ML IV IV PRN (04:35)
[2021-09-09] MEDS: SODIUM CHLORIDE 0.9% 1000ML 1,000 ML IV SCH ×2 (06:25→22:40)
--- NOTE | 2021-09-09 07:15 | CT Scan Report ---
CT SCAN OF THE ABDOMEN AND PELVIS WITH IV CONTRAST CLINICAL HISTORY: Generalized abdominal pain. Free air. COMPARISON STUDY: Abdominal CT dated 09/08/2021. PET/CT dated 03/28/2016. TECHNIQUE: Following the IV administration of 92 cc of Optiray 320, CT scan of the abdomen and pelvi s is performed from the lung bases to the proximal femora. Images are reviewed in the axial, sagittal , and coronal planes. IV contrast was administered without complication. A proximally 30 cc of a cont rast was injected into the gastrostomy tube. A dose lowering technique was utilized adhering to the p rinciples of RAFAEL. The examination is degraded by streak artifact from the arms which could not be e levated above the abdomen. CT DOSE: 393.65 mGy.cm FINDINGS: Lung bases: The heart is normal in size and without pericardial effusion. There are coronary artery c alcifications. The lung bases are clear noting dependent atelectasis. Liver: The contrast-enhanced liver is normal in size, contour, and attenuation. There is no intrahepa tic biliary ductal dilatation. The hepatic veins and portal veins are patent. Gallbladder: There are calcified gallstones with no CT evidence of acute cholecystitis. Spleen: Normal in size and attenuation. Pancreas: Unremarkable. Adrenal glands: Unremarkable. Kidneys: The contrast enhanced kidneys are normal in size and without hydronephrosis. The kidneys enh ance symmetrically. Abdominal vasculature: The abdominal aorta is normal in course and caliber. Stomach and bowel: A percutaneous gastrostomy tube is in place. There is no contrast seen in the stom ach, and no extraluminal contrast is identified. There is likely dilute contrast within the proximal small bowel loops. There is no bowel obstruction. Moderate fecal retention is seen throughout the col on. The appendix is normal as visualized. Peritoneum: There is a small volume of free fluid in the paracolic gutters and pelvis. A large amount of intraperitoneal free air is seen, greatest below the diaphragm. Lymphadenopathy: None. Pelvic viscera: The bladder and uterus are normal as visualized. A vaginal pessary is in place. A 4 c m simple cystic structure in the right adnexa on image #350 is unchanged. This has only modestly incr eased in size dating back to 2016 PET examination. Skeletal structures: The skeletal structures are osteopenic. There is mild lumbosacral spondylosis. N o lytic or blastic lesions are seen. Soft tissues: There is soft tissue gas identified within the subcutaneous soft tissues at the gastros anuel site. IMPRESSION: 1. Again seen is a large amount of intraperitoneal free air in the upper abdomen, as well as a small amount of free fluid in the paracolic gutters and pelvis. The gastrostomy tube appears to be appropri ately positioned, and this may represent expected postoperative change. Leak at the gastrostomy tube site is considered less likely as there is no extraluminal enteric contrast. Perforated viscus would be impossible exclude and clinical correlation will be essential. 2. No enteric contrast is seen in the stomach. There is likely dilute enteric contrast in the proxima l small bowel loops. 3. Rectosigmoid fecal retention and moderate constipation. 4. A 4 cm simple cystic lesion in the right adnexa is likely related to the right ovary. This has mod estly increased in size dating back to 2016. 5. Cholelithiasis. 6. Additional findings as above. ACT 112: Negative or not required by law. Electronically signed by: Saul Kemp M.D. 09/09/2021 7:13 AM
[2021-09-09 07:47] LABS: Hematocrit (blood only) 40.6 % (37-47); Hemoglobin 12.9 g/dL (12.0-16.0); Immature Granulocytes # (auto) 0.02 K/uL (0.00-0.02); Immature Granulocytes % (auto) 0.2 %; Lymphocytes # (auto) 0.52 K/uL (1.2-3.4); Mean Corpuscular Hemoglobin 28.7 pg (25-34); Mean Corpuscular Hgb Conc 31.8 g/dL (32-36); Mean Corpuscular Volume 90.4 fL (80-100); Mean Platelet Volume 8.3 fL (7.4-10.4); Monocytes # (auto) 0.24 K/uL (0.11-0.59); Monocytes % (auto) 2.8 %; Neutrophils # (auto) 7.94 K/uL (1.4-6.5); Platelet Count 196 K/uL (130-400); RDW Coefficient of Variation 17.9 % (11.5-14.5); RDW Standard Deviation 59.6 fL (36.4-46.3); Red Blood Count 4.49 M/uL (4.2-5.4); White Blood Count 8.72 K/uL (4.8-10.8)
[2021-09-09] MEDS: LEVOTHYROXINE SODIUM 50 MCG TABLET PO SCH (08:06)
[2021-09-09 08:43] LABS: Albumin Globulin Ratio 0.7 (0.9-2); Albumin Level 2.3 gm/dl (3.4-5.0); BUN Creatinine Ratio 34.8 (10-20); Bilirubin,Total 0.3 mg/dl (0.2-1); Calcium 8.9 mg/dl (8.5-10.1); Creatinine Clr Calc Pharmacy 59.4 ml/min; Est GFR (African American) 95.8 ml/min; Est GFR (Non-African American) 82.7 ml/min; Globulin 3.5 gm/dl (2.5-4.0); Total Protein 5.8 gm/dl (6.4-8.2)
--- NOTE | 2021-09-09 09:41 | XRay Report ---
KUB CLINICAL HISTORY: Pneumoperitoneum. Recent gastrostomy tube placement. FINDINGS: 2 AP supine abdominal radiographs are correlated with abdominal CT scans dated 09/08/2021. A gastrostomy tube projects over the left upper quadrant. There is no bowel obstruction. Fecal retent ion is seen throughout the colon. Intraperitoneal free air is again seen below the diaphragm. Excrete d IV contrast is present in the bladder. There are pelvic phleboliths. The skeletal structures are os teopenic and appear intact. IMPRESSION: 1. No bowel obstruction. 2. Intraperitoneal free air is again seen in the upper abdomen. Electronically signed by: Saul Kemp M.D. 09/09/2021 9:39 AM
[2021-09-09] MEDS ORDERED: FAMOTIDINE 20MG/5ML IV PUSH IV ONE (10:18)
[2021-09-09] MEDS: TRIAMCINOLONE ACET NASAL SPRAY 10.8ML BTL NAE SCH (10:32)
[2021-09-09] MEDS: FAMOTIDINE 20 MG in SYRINGE 3 ML IV SCH ×2 (10:32→21:50)
[2021-09-09] MEDS: PANTOprazole 40 MG in SYRINGE 0 ML IV SCH (10:33)
--- NOTE | 2021-09-09 11:04 | Gastrointestinal Consultation ---
Date of Consultation September 09, 2021 Assessment & Plan (1) Abdominal pain, acute: - Pneumoperitoneum can be see post-PEG, should be noted corticosteroids can mask peritoneal signs. Her exam is benign with very mild tenderness and no rebound/guarding, albeit after pain medications. CT with tube contrast doesn't show any contrast in stomach. Appreciate surgical consult although no evidence of perforated viscus at this time - serial abdominal exams - daily KUB - please obtain CT with full PO contrast through PEG tube given CT did not reveal any contrast in stomach - continue empiric abx and daily labs - would start daily miralax given opioid use (2) S/P percutaneous endoscopic gastrostomy (PEG) tube placement: - routine PEG care, bumper should be loosened back before discharge - avoid gauze under bumper, no evidence of bleeding - hold on TFs, see below (3) Dysphagia: - NPO for now given concern for perforation - will need to wean pain meds and start TFs prior to discharge History of Present Illness Reason for Consultation: pain after PEG History of Present Illness 71 y/F with ethmoid sinus cancer (s/p [employer] and surgery) with oropharyngeal dysphagia, recent diagnosis of temporal arteritis (on prednisone 50mg daily), anxiety, anemia, and recent PEG placement yesterday by Dr. Gonzalez. Patient reports new worsening pain after PEG placement, took some liquid ibuprofen after procedure. Reports poor mobility at home due to pain and then started TFs with 120 mL infused and 120 mL flushed with extreme 10/[address] scan and CT scan tube study completed (see below) with pneumoperitoneum with tube in appropriate position. Received fentanyl by EMS. WBC 10.8, on empiric abx resolved to normal this AM. Admitted to [facility]. Received fentanyl 50 mcg x 4 overnight, 2mg morphine and just now 4 mg morphine. Reports for temporal arteritis was taking liquid Tylenol and no opioid use in past other then around time of ethmoid surgery. On pantoprazole 40mg daily for LPR. Allergies Allergy/AdvReac Type Severity Reaction Status Date / Time budesonide Allergy Severe Dyspnea, Verified 09/08/21 10:46 irritability, swelling sucralfate Allergy Intermediate Dyspnea Verified 09/08/21 10:46 adhesive Allergy Mild Rash Verified 09/08/21 10:46 cefadroxil AdvReac Intermediate Gastrointestinal Verified 09/08/21 10:46 Upset escitalopram [From Lexapro] AdvReac Intermediate nausea Verified 09/08/21 10:46 tramadol AdvReac Intermediate Syncopal Verified 09/08/21 10:46 episode diclofenac AdvReac Mild Headache Verified 09/08/21 10:46 oxycodone AdvReac Mild Hallucinati Verified 09/08/21 10:46 ons Penicillins AdvReac Mild Gastrointestinal Verified 09/08/21 10:46 Upset Home Medications Medication Instructions Recorded Confirmed Type levothyroxine 50 mcg capsule 50 mcg PO DAILY 02/12/19 09/08/21 History lorazepam 0.5 mg tablet 0.5 mg PO HS PRN 02/12/19 09/08/21 History multivitamin 1 cap PO QAM 02/12/19 09/08/21 History atorvastatin 10 mg tablet (Lipitor) 10 mg PO QDD 03/25/19 09/08/21 History mupirocin 2 % topical ointment 1 applic TOP BID #15 gm 09/20/20 09/08/21 Rx triamcinolone acetonide 55 mcg 2 spray INTNAS QAM ml 05/10/21 09/08/21 History nasal spray aerosol (Nasacort) desloratadine 5 mg tablet 5 mg PO QAM #90 tab 05/15/21 09/08/21 Rx (Clarinex) estradiol 1 g PV 2XWK #42.5 gm 06/13/21 09/08/21 Rx ofloxacin 0.3 % ear drops See Rx Instructions OTIC (EAR) BID 07/21/21 09/08/21 Rx 10 Days #10 ml ascorbic acid (vitamin C) 250 mg 250 mg PO QAM 08/06/21 09/08/21 History tablet (Vitamin C) cholecalciferol (vitamin D3) 25 25 mcg PO QAM 08/06/21 09/08/21 History mcg (1,000 unit) capsule (Vitamin D3) cyclosporine 0.05 % eye drops in a 1 drp OPB BID 08/06/21 09/08/21 History dropperette (Restasis) glucosamine 750 [id number]-kkt 1 tab PO QAM tab 08/10/21 09/08/21 History no1 644 mg-C 30 mg-kasandra 1 mg tablet (Osteo Bi-Flex Triple Strength) zmagvbr-oakpqw-jpgovq oil 0.12 1 g TOPICAL DAILY 08/10/21 09/08/21 History mg-87 mg-788 mg/g topical gel Eye Vitamin Ointment 1 dose TOPICAL HS 08/14/21 09/08/21 History sodium bicarbonate-sodium 40 ea .ROUTE BID 08/14/21 09/08/21 History chloride-neti pot nasal rinse with packet ([place] Saline Nasal Neti Rinse) famotidine 40 mg tablet 40 mg PO QAM #30 tab 09/04/21 09/08/21 Rx pantoprazole 40 mg tablet,delayed 40 mg PO HS 09/05/21 09/08/21 History release prednisone 50 mg tablet 50 mg PO QAM 09/05/21 09/08/21 History trazodone 50 mg tablet 50 mg PO DAILY 09/05/21 09/08/21 History loteprednol etabonate 0.5 % eye 1 drp OPHTHALMIC (EYE) QID 09/08/21 09/08/21 History drops,suspension (Lotemax) Patient History Medical History (Updated 09/08/21 @ 22:18 by Kristian King MD) Anemia Stable per 08/2021 labs Anxiety Dysphagia Dysphagia r/t radiation Hiatal hernia Hyperlipidemia Hypothyroidism Laryngopharyngeal reflux 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, chemo (2009), proton pump treatment/radiation Sensorineural hearing loss (SNHL) of both ears Vaginal pessary present STILL INTACT Surgical History (Updated 09/09/21 @ 02:30 by Dede Kwong MD) History of anesthesia reaction "Small mouth opening" > has had to have pediatric tube in past S/P Right foot cheilectomy (05/27/19): LMA#3 at [facility] [place] History of breast biopsy History of cataract surgery R/L History of colonoscopy History of dilatation and curettage History of endoscopic sinus surgery x2 (removal of cancer and then to open up sinus) History of esophagogastroduodenoscopy (EGD) History of foot surgery Right foot cheilectomy (05/27/19): LMA#3 at [facility] [place] History of placement of ear tubes History of surgical removal of ganglion cyst History of temporal artery biopsy (08/16/21) Bilateral Temporal Artery Biopsy Dr. Claire 08/16/2021 History of tonsillectomy and adenoidectomy Hx of eye surgery Attempted to open tear ducts Hx of lymph node excision r/t cancer Family History Mother Family hx of colon cancer Colorectal cancer Cancer Father Diabetes Acute myocardial infarction Heart disease Family/Other Breast cancer Grandmother (Paternal) Breast cancer Grandmother (Maternal) Diabetes Other No family history of adverse response to anesthesia Social History Smoking Status: Never smoker Second Hand Exposure: Yes (dad smoked); Do You Dip or Chew Tobacco: No; Hx Alcohol Use: No Hx Substance Use: No Preferred Language: Georgian Communication Ability: Effective Structures Mechanic Required: No Beliefs That Will Affect Care: None marital status: Current Living Situation: Spouse current occupational status: retired How many Children do You have: 4 Feels Safe at Home: Yes Safety Concerns: Feels Safe At This Time during the past year weight has: decreased > 10 lbs Assistive Devices: Glasses and Hearing Aid - Bilateral Review of Systems Review of Systems: A complete 14 point ROS is negative unless otherwise stated above. Physical Exam Physical Exam: NAD, resting comfortable in bed Respiratory: no resp distress Cardiovascular: see tele Gastrointestinal (Abdomen): soft, mild LLQ tenderness to deep palpation, no rebound no guarding, tube site c/d/i, bumper 3.5cm at skin (slightly tight), on manipulation air coming from gastrostomy site. Skin: warm dry intact Neurologic: AOx3 moves all 4 ext Psychiatric: approp mood and affect Results & Data ([facility]) Vital Signs (Past 12 Hours) Vital Signs Temp Pulse Resp BP Pulse Ox 09/09/21 04:44 36.7 C 78 18 104/64 97 09/09/21 03:00 77 18 110/64 96 09/09/21 01:00 70 18 121/75 97 09/08/21 23:00 58 L 18 105/66 99
--- NOTE | 2021-09-09 12:08 | Surgery Consultation ---
Date of Consultation September 09, 2021 Assessment & Plan (1) S/P percutaneous endoscopic gastrostomy (PEG) tube placement: 71-year-old female POD #1 PEG placement with increased pain and pneumoperitoneum after syringe feedings. There is no clear extravasation of contrast, and her vital signs are stable and her white blood cell count is normal. It is possible that either during the procedure some pneumoperitoneum was instilled or during feeding if the bumper was not snug against the abdominal wall. I discussed this with GI, we agreed but no surgical indication at this time but we will follow closely. No surgery indicated at this time Hold off on tube feeds Consider repeat imaging with full dose oral contrast to exclude missed injury Pneumoperitoneum will likely resolve in the next few days and her pain will improve Continue prophylactic antibiotics Surgery will continue to follow, call with questions or concerns (2) Pneumoperitoneum: History of Present Illness Attending Physician: Denny Keller DO History of Present Illness 71-year-old female presented to the emergency department overnight for abdominal pain following PEG placement. She underwent an uncomplicated PEG placement yesterday by Dr. Gonzalez with [facility]. Her daughter reports she had some pain after the procedure. Upon initiating tube feeds yesterday she had increasing discomfort in her abdomen and back. She presented to the emergency department and was noted to have a significant amount of pneumoperitoneum. A repeat CT scan showed no extravasation of contrast. Her white blood cell count remained normal. Today she feels slightly better but is soaping machine back tender to palpation and having some abdominal discomfort. Allergies Allergy/AdvReac Type Severity Reaction Status Date / Time budesonide Allergy Severe Dyspnea, Verified 09/08/21 10:46 irritability, swelling sucralfate Allergy Intermediate Dyspnea Verified 09/08/21 10:46 adhesive Allergy Mild Rash Verified 09/08/21 10:46 cefadroxil AdvReac Intermediate Gastrointestinal Verified 09/08/21 10:46 Upset escitalopram [From Lexapro] AdvReac Intermediate nausea Verified 09/08/21 10:46 tramadol AdvReac Intermediate Syncopal Verified 09/08/21 10:46 episode diclofenac AdvReac Mild Headache Verified 09/08/21 10:46 oxycodone AdvReac Mild Hallucinati Verified 09/08/21 10:46 ons Penicillins AdvReac Mild Gastrointestinal Verified 09/08/21 10:46 Upset Home Medications Medication Instructions Recorded Confirmed Type levothyroxine 50 mcg capsule 50 mcg PO DAILY 02/12/19 09/08/21 History lorazepam 0.5 mg tablet 0.5 mg PO HS PRN 02/12/19 09/08/21 History multivitamin 1 cap PO QAM 02/12/19 09/08/21 History atorvastatin 10 mg tablet (Lipitor) 10 mg PO QDD 03/25/19 09/08/21 History mupirocin 2 % topical ointment 1 applic TOP BID #15 gm 09/20/20 09/08/21 Rx triamcinolone acetonide 55 mcg 2 spray INTNAS QAM ml 05/10/21 09/08/21 History nasal spray aerosol (Nasacort) desloratadine 5 mg tablet 5 mg PO QAM #90 tab 05/15/21 09/08/21 Rx (Clarinex) estradiol 1 g PV 2XWK #42.5 gm 06/13/21 09/08/21 Rx ofloxacin 0.3 % ear drops See Rx Instructions OTIC (EAR) BID 07/21/21 09/08/21 Rx 10 Days #10 ml ascorbic acid (vitamin C) 250 mg 250 mg PO QAM 08/06/21 09/08/21 History tablet (Vitamin C) cholecalciferol (vitamin D3) 25 25 mcg PO QAM 08/06/21 09/08/21 History mcg (1,000 unit) capsule (Vitamin D3) cyclosporine 0.05 % eye drops in a 1 drp OPB BID 08/06/21 09/08/21 History dropperette (Restasis) glucosamine 750 dp-ujzjzeygyol-cjp 1 tab PO QAM tab 08/10/21 09/08/21 History no1 644 mg-C 30 mg-kasandra 1 mg tablet (Osteo Bi-Flex Triple Strength) cwegvlq-scbeym-ybmuvn oil 0.12 1 g TOPICAL DAILY 08/10/21 09/08/21 History mg-87 mg-788 mg/g topical gel Eye Vitamin Ointment 1 dose TOPICAL HS 08/14/21 09/08/21 History sodium bicarbonate-sodium 40 ea .ROUTE BID 08/14/21 09/08/21 History chloride-neti pot nasal rinse with packet ([place] Saline Nasal Neti Rinse) famotidine 40 mg tablet 40 mg PO QAM #30 tab 09/04/21 09/08/21 Rx pantoprazole 40 mg tablet,delayed 40 mg PO HS 09/05/21 09/08/21 History release prednisone 50 mg tablet 50 mg PO QAM 09/05/21 09/08/21 History trazodone 50 mg tablet 50 mg PO DAILY 09/05/21 09/08/21 History loteprednol etabonate 0.5 % eye 1 drp OPHTHALMIC (EYE) QID 09/08/21 09/08/21 History drops,suspension (Lotemax) Patient History Medical History (Updated 09/09/21 @ 12:05 by Agus Otero DO, FACS) Anemia Stable per 08/2021 labs Anxiety Dysphagia Dysphagia r/t radiation Hiatal hernia Hyperlipidemia Hypothyroidism Laryngopharyngeal reflux Pneumoperitoneum 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, chemo (2009), proton pump treatment/radiation Sensorineural hearing loss (SNHL) of both ears Vaginal pessary present STILL INTACT Surgical History (Updated 09/09/21 @ 02:30 by Dede Kwong MD) History of anesthesia reaction "Small mouth opening" > has had to have pediatric tube in past S/P Right foot cheilectomy (05/27/19): [place] [facility] [place] History of breast biopsy History of cataract surgery R/L History of colonoscopy History of dilatation and curettage History of endoscopic sinus surgery x2 (removal of cancer and then to open up sinus) History of esophagogastroduodenoscopy (EGD) History of foot surgery Right foot cheilectomy (05/27/19): LMA#3 at [facility] [place] History of placement of ear tubes History of surgical removal of ganglion cyst History of temporal artery biopsy (08/16/21) Bilateral Temporal Artery Biopsy Dr. Claire 08/16/2021 History of tonsillectomy and adenoidectomy Hx of eye surgery Attempted to open tear ducts Hx of lymph node excision r/t cancer Family History Mother Family hx of colon cancer Colorectal cancer Cancer Father Diabetes Acute myocardial infarction Heart disease Family/Other Breast cancer Grandmother (Paternal) Breast cancer Grandmother (Maternal) Diabetes Other No family history of adverse response to anesthesia Social History Smoking Status: Never smoker Second Hand Exposure: Yes (dad smoked); Do You Dip or Chew Tobacco: No; Hx Alcohol Use: No Hx Substance Use: No Preferred Language: Romansh Communication Ability: Effective Scourer Required: No Beliefs That Will Affect Care: None marital status: Current Living Situation: Spouse current occupational status: retired How many Children do You have: 4 Feels Safe at Home: Yes Safety Concerns: Feels Safe At This Time during the past year weight has: decreased > 10 lbs Assistive Devices: Glasses and Hearing Aid - Bilateral Physical Exam Constitutional: WD/WN, vitals as above Respiratory: normal respiratory effort, lungs clear to auscultation Cardiovascular: RRR, no murmur, no edema Gastrointestinal (Abdomen): Percussion/Palpation: + abdomen tender (Moderate diffuse abdominal pain) and abdomen soft; no guarding, abdomen not rigid and no hepatosplenomegaly PEG tube in place Results & Data ([facility]) Vital Signs (Past 12 Hours) Vital Signs Temp Pulse Resp BP Pulse Ox 09/09/21 04:44 36.7 C 78 18 104/64 97 09/09/21 03:00 77 18 110/64 96 09/09/21 01:00 70 18 121/75 97 Laboratory Results Laboratory Results - last 24 hr 09/08/21 09/08/21 09/09/21 22:40 22:40 02:07 WBC 10.96 H RBC 5.03 Hgb 14.5 Hct 45.7 MCV 90.9 MCH 28.8 MCHC 31.7 L RDW Std Deviation 58.2 H RDW Coeff of Lucien 17.6 H Plt Count 244 MPV 8.4 Immature Gran % (Auto) 0.5 Neut % (Auto) 94.1 Lymph % (Auto) 3.0 [place] % (Auto) 2.3 Eos % (Auto) 0.0 Baso % (Auto) 0.1 Neut # (Auto) 10.32 H Lymph # (Auto) 0.33 L [place] # (Auto) 0.25 Eos # (Auto) 0.00 Baso # (Auto) 0.01 Immature Gran # (Auto) 0.05 H Sodium 142 Potassium 4.4 Chloride 107 Carbon Dioxide 29 Anion Gap 6.0 BUN 32 H Creatinine 1.08 Est Cr Clr Drug Dosing 37.0 Est GFR ( Amer) 60.7 Est GFR (Non-Af Amer) 52.3 BUN/Creatinine Ratio 29.5 H Glucose 205 H Lactate Calcium 9.6 Total Bilirubin 0.4 AST 11 L ALT 27 Alkaline Phosphatase 67 Total Protein 7.0 Albumin 3.1 L Globulin 3.9 Albumin/Globulin Ratio 0.8 L Lipase 236 SARS-CoV-2, RNA, NAAT NEGATIVE 09/09/21 09/09/21 09/09/21 02:38 04:41 07:38 WBC 8.72 RBC 4.49 Hgb 12.9 Hct 40.6 MCV 90.4 MCH 28.7 MCHC 31.8 L RDW Std Deviation 59.6 H RDW Coeff of Lucien 17.9 H Plt Count 196 MPV 8.3 Immature Gran % (Auto) 0.2 Neut % (Auto) 91.0 Lymph % (Auto) 6.0 [place] % (Auto) 2.8 Eos % (Auto) 0.0 Baso % (Auto) 0.0 Neut # (Auto) 7.94 H Lymph # (Auto) 0.52 L [place] # (Auto) 0.24 Eos # (Auto) 0.00 Baso # (Auto) 0.00 Immature Gran # (Auto) 0.02 Sodium Potassium Chloride Carbon Dioxide Anion Gap BUN Creatinine Est Cr Clr Drug Dosing Est GFR ( Amer) Est GFR (Non-Af Amer) BUN/Creatinine Ratio Glucose Lactate 2.4 H* 2.0 Calcium Total Bilirubin AST ALT Alkaline Phosphatase Total Protein Albumin Globulin Albumin/Globulin Ratio Lipase SARS-CoV-2, RNA, NAAT 09/09/21 07:38 WBC RBC Hgb Hct MCV MCH MCHC RDW Std Deviation RDW Coeff of Lucien Plt Count MPV Immature Gran % (Auto) Neut % (Auto) Lymph % (Auto) [place] % (Auto) Eos % (Auto) Baso % (Auto) Neut # (Auto) Lymph # (Auto) [place] # (Auto) Eos # (Auto) Baso # (Auto) Immature Gran # (Auto) Sodium 143 Potassium 4.0 Chloride 111 H Carbon Dioxide 27 Anion Gap 6.0 BUN 26 H Creatinine 0.74 D Est Cr Clr Drug Dosing 59.4 Est GFR ( Amer) 95.8 Est GFR (Non-Af Amer) 82.7 BUN/Creatinine Ratio 34.8 H Glucose 137 H Lactate Calcium 8.9 Total Bilirubin 0.3 AST 10 L ALT 20 Alkaline Phosphatase 52 Total Protein 5.8 L Albumin 2.3 L Globulin 3.5 Albumin/Globulin Ratio 0.7 L Lipase SARS-CoV-2, RNA, NAAT Diagnostic Findings CT SCAN OF THE ABDOMEN AND PELVIS WITH IV CONTRAST CLINICAL HISTORY: Generalized abdominal pain. Free air. COMPARISON STUDY: Abdominal CT dated 09/08/2021. PET/CT dated 03/28/2016. TECHNIQUE: Following the IV administration of 92 cc of Optiray 320, CT scan of the abdomen and pelvis is performed from the lung bases to the proximal femora. Images are reviewed in the axial, sagittal, and coronal planes. IV contrast was administered without complication. A proximally 30 cc of a contrast was injected into the gastrostomy tube. A dose lowering technique was utilized adhering to t he principles of ALARA. The examination is degraded by streak artifact from the arms which could not be elevated above the abdomen. CT DOSE: 393.65 mGy.cm FINDINGS: Lung bases: The heart is normal in size and without pericardial effusion. There are coronary artery calcifications. The lung bases are clear noting dependent atelectasis. Liver: The contrast-enhanced liver is normal in size, contour, and attenuation. There is no intrahepatic biliary ductal dilatation. The hepatic veins and portal veins are patent. Gallbladder: There are calcified gallstones with no CT evidence of acute cholecy stitis. Spleen: Normal in size and attenuation. Pancreas: Unremarkable. Adrenal glands: Unremarkable. Kidneys: The contrast enhanced kidneys are normal in size and without hydronephrosis. The kidneys enhance symmetrically. Abdominal vasculature: The abdominal aorta is normal in course and caliber. Stomach and bowel: A percutaneous gastrostomy tube is in place. There is no contrast seen in the stomach, and no extraluminal contrast is identified. There is likely dilute contrast within the proximal small bowel loops. There is no bowel obstruction. Moderate fecal retention is seen throughout the colon. The appendix is normal as visualized. Peritoneum: There is a small volume of free fluid in the paracolic gutters and pelvis. A large amount of intraperitoneal free air is seen, greatest below the diaphragm. Lymphadenopathy: None. Pelvic viscera: The bladder and uterus are normal as visualized. A vaginal pessary is in place. A 4 cm simple cystic structure in the right adnexa on image #350 is unchanged. This has only modestly increased in size dating back to 2016 PET examination. Skeletal structures: The skeletal structures are osteopenic. There is mild lumbosacral spondylosis. No lytic or blastic lesions are seen. Soft tissues: There is soft tissue gas identified within the subcutaneous soft tissues at the gastrostomy site. IMPRESSION: 1. Again seen is a large amount of intraperitoneal free air in the upper abdomen, as well as a small amount of free fluid in the paracolic gutters and pelvis. The gastrostomy tube appears to be appropriately positioned, and this may represent expected postoperative change. Leak at the gastrostomy tube site is considered less likely as there is no extraluminal enteric contrast. Perforated viscus would be impossible exclude and clinical correlation will be essential. 2. No enteric contrast is seen in the stomach. There is likely dilute enteric contrast in the proximal small bowel loops. 3. Rectosigmoid fecal retention and moderate constipation. 4. A 4 cm simple cystic lesion in the right adnexa is likely related to the right ovary. This has modestly increased in size dating back to 2016. 5. Cholelithiasis. 6. Additional findings as above. PG Care Time/CCT Total # of Minutes Spent Total Time Spent with Patient: Total time spent is greater than 50% in coordination of care (as documented) at patient's floor/unit and/or counseling patient: Coding Level of Care Code 95862 Initial Inpt Care Lvl 2 Diagnoses S/P percutaneous endoscopic gastrostomy (PEG) tube placement Z93.1 Pneumoperitoneum K66.8
--- NOTE | 2021-09-09 14:14 | CT Scan Report ---
CT SCAN OF THE ABDOMEN WITHOUT IV CONTRAST CLINICAL HISTORY: Generalized abdominal pain. Free air. COMPARISON STUDY: Abdominal CT scans dated 09/08/2021. PET/CT dated 03/28/2016. TECHNIQUE: Unenhanced CT scan of the abdomen is performed from the lung bases to the pelvic inlet. Im ages are reviewed in the axial, sagittal, and coronal planes. IV contrast was administered without co mplication. Approximately 100 cc of enteric contrast was injected into the gastrostomy tube. A dose l owering technique was utilized adhering to the principles of ALARA. The examination is degraded by st reak artifact from the arms which could not be elevated above the abdomen. CT DOSE: 175.27 mGy.cm FINDINGS: Lung bases: The heart is normal in size and without pericardial effusion. There are coronary artery c alcifications. There are small pleural effusions, left larger than right with bibasilar atelectasis. These are new from previous. Liver: The unenhanced liver is normal in size, contour, and attenuation. There is no intrahepatic george iary ductal dilatation. Gallbladder: The gallbladder is distended and contains calcified gallstones. There is no CT evidence of acute cholecystitis. Spleen: Normal in size and attenuation. Pancreas: Unremarkable. Adrenal glands: Unremarkable. Kidneys: The unenhanced kidneys are normal in size and without hydronephrosis. Excreted IV contrast i s seen within the renal collecting systems and ureters. This degrades assessment for renal calculi. Abdominal vasculature: The abdominal aorta is normal in course and caliber. Stomach and bowel: A percutaneous gastrostomy tube is in place. Enteric contrast is present within th e stomach and proximal duodenum. No extraluminal contrast is identified. Imaged portions of the small bowel and colon show no evidence of obstruction. Moderate fecal retention is seen throughout the eliza ged colon. Peritoneum: There is a small volume of perihepatic and perisplenic ascites, as well as free fluid in the paracolic gutters. A large amount of intraperitoneal free air is seen, greatest below the diaphra gm. Lymphadenopathy: None. Skeletal structures: The skeletal structures are osteopenic. There is mild lumbosacral spondylosis. N o lytic or blastic lesions are seen. Soft tissues: There is soft tissue gas identified within the subcutaneous soft tissues at the gastros anuel site. IMPRESSION: 1. Again seen is a large amount of intraperitoneal free air in the upper abdomen, as well as a small amount of free fluid in the paracolic gutters. The gastrostomy tube appears to be appropriately posit ioned, and this likely represents expected postoperative change. There is no evidence of leakage at t he gastrostomy site, as no extraluminal contrast is seen. Given the presence of free air, a perforate d viscus would be impossible exclude and clinical correlation will be essential. 2. Moderate constipation. 3. Cholelithiasis. 4. Small pleural effusions are new from previous. 5. A small amount of perihepatic and perisplenic ascites has modestly increased from previous. 6. Additional findings as above. ACT 112: Negative or not required by law.' Electronically signed by: Saul Kemp M.D. 09/09/2021 2:13 PM
[2021-09-09] MEDS ORDERED: POLYETHYLENE (MIRALAX) 17 GM PACK PEG ONE (14:32)
--- NOTE | 2021-09-09 14:59 | Communication Note ---
Follow-up on CT scan which showed contrast into the stomach and bowel with no evidence of perforation. Continue pneumoperitoneum. Patient is feeling slightly better and her abdominal exam is slightly improved. Proceed with observation, no indication for surgical intervention at this time. Surgery will follow. Date of Service: September 09, 2021
[2021-09-09] MEDS: MoRPHine SULFATE 2 MG/ML CARP IV PRN (15:50)
[2021-09-09] MEDS: AMPICILLIN/SULBACTAM SOD 1,500 MG in 0.9 % SODIUM CHLORIDE 100 ML IV SCH ×2 (15:58→21:50)
--- NOTE | 2021-09-09 17:48 | Communication Note ---
Date of Service: September 09, 2021 d/w GI and surgery, fitness consultant input appreciated. pain doing better. hasn't had any PEG intake though. updated on f/u CT scan, plans, etc - answered all questions to the best of my ability and to pt/'s satisfaction vitals noted nad heent nc at mmm breathing unlabored no accessory muscles. abd soft (+) epigastric tenderness > elsewhere but no guarding/rebound/rigidity abdominal pain - post PEG placement - due to air (and also likely due to constipation) but no peritonitis/leak - symptom control. pain control, time, miralax. if tolerates 8oz miralax can then consider gently starting nutrition through tube. otherwise as per H&P same date
[2021-09-09] MEDS: CLARINEX~ORDER AWAITING ACTION SCH ×3 (18:45→23:19)
[2021-09-09] MEDS: RESTASIS~ORDER AWAITING ACTION SCH ×3 (18:46→23:19)
[2021-09-09] MEDS: traZODone HCL 50 MG TAB PO SCH (21:49)
[2021-09-09] MEDS: POLYETHYLENE (MIRALAX) 17 GM PACK PEG SCH (21:49)
[2021-09-09] MEDS: ATORVASTATIN 10 MG TAB PO SCH (21:51)
[2021-09-10] MEDS: MoRPHine SULFATE 2 MG/ML CARP IV PRN ×4 (04:22→19:32)
[2021-09-10] MEDS: SODIUM CHLORIDE 0.9% 1000ML 1,000 ML IV SCH (05:02)
[2021-09-10] MEDS: AMPICILLIN/SULBACTAM SOD 1,500 MG in 0.9 % SODIUM CHLORIDE 100 ML IV SCH ×4 (05:20→21:00)
[2021-09-10 05:38] LABS: Basophils # (auto) 0.01 K/uL (0-0.2); Basophils % (auto) 0.1 %; Eosinophils # (auto) 0.01 K/uL (0-0.5); Eosinophils % (auto) 0.1 %; Hematocrit (blood only) 39.4 % (37-47); Hemoglobin 12.2 g/dL (12.0-16.0); Immature Granulocytes # (auto) 0.04 K/uL (0.00-0.02); Immature Granulocytes % (auto) 0.4 %; Lymphocytes # (auto) 0.64 K/uL (1.2-3.4); Lymphocytes % (auto) 5.7 %; Mean Corpuscular Hemoglobin 28.3 pg (25-34); Mean Corpuscular Volume 91.4 fL (80-100); Mean Platelet Volume 8.3 fL (7.4-10.4); Monocytes # (auto) 0.41 K/uL (0.11-0.59); Monocytes % (auto) 3.7 %; Neutrophils # (auto) 10.06 K/uL (1.4-6.5); Platelet Count 168 K/uL (130-400); RDW Coefficient of Variation 18.4 % (11.5-14.5); Red Blood Count 4.31 M/uL (4.2-5.4); White Blood Count 11.17 K/uL (4.8-10.8)
[2021-09-10] MEDS: LEVOTHYROXINE SODIUM 50 MCG TABLET PO SCH (05:53)
[2021-09-10 06:28] LABS: BUN Creatinine Ratio 26.4 (10-20); Calcium 9.2 mg/dl (8.5-10.1); Creatinine Clr Calc Pharmacy 69.7 ml/min; Est GFR (African American) 106.1 ml/min; Est GFR (Non-African American) 91.5 ml/min; Potassium 4.1 mmol/L (3.5-5.1)
[2021-09-10] MEDS: FAMOTIDINE 20 MG in SYRINGE 3 ML IV SCH ×2 (09:39→21:30)
[2021-09-10] MEDS: TRIAMCINOLONE ACET NASAL SPRAY 10.8ML BTL NAE SCH (09:39)
[2021-09-10] MEDS: POLYETHYLENE (MIRALAX) 17 GM PACK PEG SCH ×2 (09:39→21:07)
[2021-09-10] MEDS: RESTASIS~ORDER AWAITING ACTION SCH ×3 (10:16→23:04)
[2021-09-10] MEDS: CLARINEX~ORDER AWAITING ACTION SCH ×3 (10:16→23:04)
[2021-09-10] MEDS: METHYLPREDNISOLONE IV SCH (10:32)
[2021-09-10] MEDS: PANTOprazole 40 MG in SYRINGE 0 ML IV SCH (10:43)
--- NOTE | 2021-09-10 10:51 | Surgery Progress Note ---
Date of Service September 10, 2021 Assessment & Plan (1) S/P percutaneous endoscopic gastrostomy (PEG) tube placement: Plan: 71-year-old female POD #2 PEG placement with increased pain and pneumoperitoneum after syringe feedings, feeling slightly better. No surgery indicated at this time Hold off on tube feeds Pneumoperitoneum will likely resolve in the next few days and her pain will improve Continue prophylactic antibiotics Surgery will continue to follow, call with questions or concerns (2) Pneumoperitoneum: Admission and Anticipated Discharge Date Admission Date: September 09, 2021 Subjective 71-year-old female post procedure day #3 PEG placement with pneumoperitoneum and abdominal pain. Repeat CT imaging yesterday showed contrast into the stomach with no evidence of extravasation. She feels slightly better today, still hurts to move. Physical Exam Constitutional: WD/WN, vitals as above Respiratory: normal respiratory effort, lungs clear to auscultation Cardiovascular: RRR, no murmur, no edema Gastrointestinal (Abdomen): Percussion/Palpation: + abdomen tender (Moderate diffuse abdominal pain, slightly improved) and abdomen soft; no guarding, abdomen not rigid and no hepatosplenomegaly Results & Data ([facility]) Vital Signs (Past 12 Hours) Vital Signs Temp Pulse Pulse Resp BP Pulse Ox 09/10/21 08:00 36.7 C 83 18 129/74 97 09/10/21 05:10 79 09/10/21 03:50 80 15 129/78 16 L PG Care Time/CCT Total # of Minutes Spent Total Time Spent with Patient: Total time spent is greater than 50% in coordination of care (as documented) at patient's floor/unit and/or counseling patient: Coding Level of Care Code 36753 Office/OBS Consult Lvl 2 Diagnoses S/P percutaneous endoscopic gastrostomy (PEG) tube placement Z93.1 Pneumoperitoneum K66.8
--- NOTE | 2021-09-10 11:18 | Hospitalist Progress Note ---
Date of Service September 10, 2021 Assessment & Plan (1) Abdominal pain, acute: Plan: Abdominal pain s/p PEG - post PEG placement - due to air (and also likely due to constipation) but no peritonitis/leak - symptom control. Continue with pain control, time for air to absorb, miralax for gentle bowel regimen. Will want to hold off on full tube feeds, but discussed with patient/nursing, can cautiously try a few ounces of boost throughout the day mostly to screen for tolerance Positive JENNIE - recent biopsy for temporal arteritis negative -On IV methylprednisolone until PEG intake is reliable - JENNIE positive, 1:320. seeing bench manager in Sep 2021 Chronic Conditions GERD: Continue IV pantoprazole and famotidine to replace PO famotidine and omeprazole until PEG intake is reliable Hypothyroidism: cont levothyroxine Allergic rhinitis: cont nasal sprays, eye drops PRN Depression: cont trazodone HS DVT ppx: SCDs FEN/GI: NPO no sips no medsnotes that she is a severe aspiration risk Bowel regimen: dulcolax, mag citrate prn Code Status: full code Dispo: Stable for MedSurg, anticipate being able to go home after discharge (main criteria for discharge being pain improving, and able to tolerate PEG intake) (2) Dysphagia: (3) S/P percutaneous endoscopic gastrostomy (PEG) tube placement: Admission and Anticipated Discharge Date Admission Date: September 09, 2021 Subjective Notes that she feels the slightest bit better. Pain probably moderately better at rest, but still hurts very severely and stabbing only whenever she tries to move at all. Believes she was asleep whenever she had the MiraLAX in her PEG yesterday, does not recall any pain from it. Otherwise no new complaints Review of Systems Review of Systems: All systems reviewed & are unremarkable except as noted in HPI & below Physical Exam Physical Exam: In general she is awake alert oriented pleasant no distress. HEENT normocephalic atraumatic mucous membranes moist. Breathing unlabored no accessory muscle use good effort. Skin shows no rashes no pallor or icterus. Abdomen soft with diffuse tenderness worst around the PEG site, no guarding/rebound/rigidity. Neuro without focal deficits. Results & Data Results & Data ([facility]) Vital Signs (Past 12 Hours) Vital Signs Temp Pulse Pulse Resp BP Pulse Ox 09/10/21 08:00 98.1 F 83 18 129/74 97 09/10/21 05:10 79 09/10/21 03:50 80 15 129/78 16 L PG Care Time/CCT Total # of Minutes Spent Total Time Spent with Patient: Total time spent is greater than 50% in coordination of care (as documented) at patient's floor/unit and/or counseling patient: Coding Level of Care Code 59236 Subseq Hosp Care Lvl 3 Diagnoses Abdominal pain, acute R10.9 Dysphagia R13.10 S/P percutaneous endoscopic gastrostomy (PEG) tube placement Z93.1
[2021-09-10] MEDS ORDERED: Nursing to Pharmacy Communication SCH ×2 (11:30→17:00)
--- NOTE | 2021-09-10 12:20 | Gastroenterology Progress Note ---
Date of Service September 10, 2021 Assessment & Plan (1) Abdominal pain, acute: Plan: - overall likely related to procedure rather than complication, improving. - continue to wean pain meds and begin trickle feeds - serial abd exams - daily KUB - agree with 5 days of empiric abx - cont miralax titrated to BM (2) S/P percutaneous endoscopic gastrostomy (PEG) tube placement: Plan: - will need to loosen bumper before discharg (to 4 cm at skin) (3) Dysphagia: Plan: - s/p PEG Admission and Anticipated Discharge Date Admission Date: September 09, 2021 Subjective NAEO, moved to ICU for tele but going to 3rd floor[address] with full contrast shows no leak. Reports pain is improving, now at tube site and not LLQ. Ambulating from toilet on rounds. Denies BM. Per bedside RN, plan for boost and then if tolerates trial trickle TFs. Decreasing pain med requirements. PEG through PEG tube and no pain yesterday. Physical Exam Physical Exam: NAD, resting comfortable in bed. ambulating from toilet Respiratory: no resp distress Cardiovascular: see tele Gastrointestinal (Abdomen): soft, mild tenderness just inferior to tube, otherwise no guarding no rebound, ND, tube site c/d/i Skin: warm dry intact Neurologic: AOx3 moves all 4 ext Psychiatric: appropriate mood and affect Results & Data ([facility]) Vital Signs (Past 12 Hours) Vital Signs Temp Pulse Pulse Resp BP Pulse Ox 09/10/21 08:00 36.7 C 83 18 129/74 97 09/10/21 05:10 79 09/10/21 03:50 80 15 129/78 16 L
[2021-09-10] MEDS: NON-FORMULARY PATIENT'S OWN MED OP SCH ×3 (14:35→20:59)
[2021-09-10] MEDS: FIBERSOURCE HN 1.2 CAL 1000 ML BAG GT SCH (16:08)
[2021-09-10] MEDS: TUBE FEEDING WATER FLUSH GT SCH ×2 (16:22→21:00)
[2021-09-10] MEDS: LOTEPREDNOL OP SCH ×2 (17:05→20:57)
[2021-09-10] MEDS: ATORVASTATIN 10 MG TAB PO SCH (17:41)
[2021-09-10] MEDS: traZODone HCL 50 MG TAB PO SCH (21:07)
[2021-09-10] MEDS ORDERED: ONDANSETRON INJ 2 MG/ML 2 ML VIAL IV PRN (21:41)
[2021-09-11] MEDS: NON-FORMULARY PATIENT'S OWN MED OP SCH ×8 (00:32→21:40)
[2021-09-11] MEDS: FIBERSOURCE HN 1.2 CAL 1000 ML BAG GT SCH ×4 (00:34→17:20)
[2021-09-11] MEDS: SODIUM CHLORIDE 0.9% 1000ML 1,000 ML IV SCH ×3 (00:37→20:42)
[2021-09-11] MEDS: MoRPHine SULFATE 2 MG/ML CARP IV PRN ×3 (00:42→16:16)
[2021-09-11] MEDS: TUBE FEEDING WATER FLUSH GT SCH ×4 (02:05→21:39)
[2021-09-11] MEDS: AMPICILLIN/SULBACTAM SOD 1,500 MG in 0.9 % SODIUM CHLORIDE 100 ML IV SCH ×4 (05:14→21:37)
[2021-09-11] MEDS: LEVOTHYROXINE SODIUM 50 MCG TABLET PO SCH (05:15)
[2021-09-11] MEDS: RESTASIS~ORDER AWAITING ACTION SCH ×3 (07:43→23:49)
[2021-09-11] MEDS: CLARINEX~ORDER AWAITING ACTION SCH ×3 (07:43→23:49)
--- NOTE | 2021-09-11 09:33 | Gastroenterology Progress Note ---
Date of Service September 11, 2021 Assessment & Plan (1) Abdominal pain, acute: Plan: - overall likely related to procedure rather than complication, improving. - continue to wean pain meds and begin trickle feeds - serial abd exams - daily KUB - agree with 5 days of empiric abx - cont miralax titrated to BM (2) S/P percutaneous endoscopic gastrostomy (PEG) tube placement: Plan: - will need to loosen bumper before discharge (to 4 cm at skin), attempted this morning but patient very uncomfortable with any feeding tube manipulation. Dr. Gonzalez will attempt again this afternoon (3) Dysphagia: Plan: - s/p PEG, recommend trickle feeds and advance feeding amount to goal Admission and Anticipated Discharge Date Admission Date: September 09, 2021 Subjective The patient was sleeping but woke with verbal stimuli. She reports her pain is a 5-6 out of 10 with any movement or feeding tube tube manipulation. Well- controlled pain at rest. Reports she is passing flatus. Denies bowel movement. Reports some nausea last night but denies nausea or vomiting this morning. Review of Systems Review of Systems: All systems reviewed & are unremarkable except as noted in HPI & below Physical Exam Gastrointestinal (Abdomen): soft, mild tenderness just inferior to tube, very uncomfortable with any feeding tube manipulation, otherwise no guarding no rebound, ND, tube site c/d/i Results & Data ([facility]) Vital Signs (Past 12 Hours) Vital Signs Temp Pulse Resp BP Pulse Ox 09/11/21 08:15 36.7 C 78 16 119/75 97 09/10/21 22:13 36.8 C 83 16 102/68 98
[2021-09-11] MEDS: TRIAMCINOLONE ACET NASAL SPRAY 10.8ML BTL NAE SCH (10:51)
[2021-09-11] MEDS: LOTEPREDNOL OP SCH ×4 (10:51→21:40)
[2021-09-11] MEDS: METHYLPREDNISOLONE IV SCH (10:52)
[2021-09-11] MEDS: PANTOprazole 40 MG in SYRINGE 0 ML IV SCH (10:52)
[2021-09-11] MEDS: FAMOTIDINE 20 MG in SYRINGE 3 ML IV SCH (10:53)
[2021-09-11] MEDS: POLYETHYLENE (MIRALAX) 17 GM PACK PEG SCH ×2 (10:53→11:12)
--- NOTE | 2021-09-11 12:26 | XRay Report ---
KUB CLINICAL HISTORY: assess free air COMPARISON STUDY: CT of the abdomen and pelvis and KUB September 09, 2021. FINDINGS: Gastrostomy tube is in place. Note is made of contrast within the colon and rectum. Althoug h suboptimally assessed on this supine exam, there is lucency within the abdomen which likely reflect s pneumoperitoneum. In addition, loops of colon are likely outlined by extraluminal gas. Smaller foci of extraluminal gas are present. No evidence for a bowel obstruction. IMPRESSION: Findings suggestive of persistent pneumoperitoneum although suboptimally assessed on sup ine radiographs. If indicated, upright abdominal or left lateral decubitus radiographs of the abdomen could be obtained. ACT 112: Negative or not required by law. Electronically signed by: Oj Michaels M.D. 09/11/2021 12:24 PM
--- NOTE | 2021-09-11 12:49 | Surgery Progress Note ---
Date of Service September 11, 2021 Assessment & Plan (1) S/P percutaneous endoscopic gastrostomy (PEG) tube placement: Plan: 71-year-old female POD #3 PEG placement with increased pain and pneumoperitoneum, continues to improve. Tolerating tube feeds. No surgery indicated at this time Pneumoperitoneum will likely resolve in the next few days and her pain will improve Continue prophylactic antibiotics Surgery will sign off, call with questions or concerns (2) Pneumoperitoneum: Admission and Anticipated Discharge Date Admission Date: September 09, 2021 Subjective 71-year-old female post procedure day #3 PEG placement with pneumoperitoneum and abdominal pain. Continues to steadily improve. I started tube feeds which she appears to be tolerating. Physical Exam Constitutional: WD/WN, vitals as above Respiratory: normal respiratory effort, lungs clear to auscultation Cardiovascular: RRR, no murmur, no edema Gastrointestinal (Abdomen): Percussion/Palpation: + abdomen tender (Mild diffuse abdominal TTP, slightly improved) and abdomen soft; no guarding, abdomen not rigid and no hepatosplenomegaly Results & Data ([facility]) Vital Signs (Past 12 Hours) Vital Signs Temp Pulse Resp BP Pulse Ox 09/11/21 08:15 36.7 C 78 16 119/75 97 Diagnostic Findings [facility] KUB CLINICAL HISTORY: assess free air COMPARISON STUDY: CT of the abdomen and pelvis and KUB September 09, 2021. FINDINGS: Gastrostomy tube is in place. Note is made of contrast within the colon and rectum. Although suboptimally assessed on this supine exam, there is lucency within the abdomen which likely reflects pneumoperitoneum. In addition, loops of colon are likely outlined by extraluminal gas. Smaller foci of extraluminal gas are present. No evidence for a bowel obstruction. IMPRESSION: Findings suggestive of persistent pneumoperitoneum although suboptimally assessed on supine radiographs. If indicated, upright abdominal or left lateral decubitus radiographs of the abdomen could be obtained. PG Care Time/CCT Total # of Minutes Spent Total Time Spent with Patient: Total time spent is greater than 50% in coordination of care (as documented) at patient's floor/unit and/or counseling patient: Coding Level of Care Code 50021 Inpt Consult Level 2 Diagnoses S/P percutaneous endoscopic gastrostomy (PEG) tube placement Z93.1 Pneumoperitoneum K66.8
[2021-09-11] MEDS: ATORVASTATIN 10 MG TAB PO SCH (16:29)
[2021-09-11] MEDS ORDERED: POLYETHYLENE (MIRALAX) 17 GM PACK PO ONE (20:08)
--- NOTE | 2021-09-11 20:12 | Hospitalist Progress Note ---
Date of Service September 11, 2021 Assessment & Plan (1) Abdominal pain, acute: Plan: Abdominal pain s/p PEG - post PEG placement - due to air (and also likely due to constipation) but no peritonitis/leak - symptom control. Continue with pain control, advance diet, escalate MiraLAX. Positive JENNIE - recent biopsy for temporal arteritis negative -Continue corticosteroids - JENNIE positive, 1:320. seeing servicing rep in Sep 2021 Chronic Conditions GERD: Change back to PEG famotidine and omeprazole Hypothyroidism: cont levothyroxine Allergic rhinitis: cont nasal sprays, eye drops PRN Depression: cont trazodone HS DVT ppx: SCDs FEN/GI: NPO no sips no medsnotes that she is a severe aspiration risk Bowel regimen: dulcolax, mag citrate prn Code Status: full code Dispo: Stable on MedSurg, anticipate being able to go home after discharge (main criteria for discharge being pain improving, and able to tolerate PEG intake) Admission and Anticipated Discharge Date Admission Date: September 09, 2021 Subjective Pain continues to do better. Still no bowel movement. Case discussed with GIinput greatly appreciated. Patient/ with multiple questions about tube feeds/life with a PEG tube in generalanswered to the best my ability and to their satisfaction. Pain not really worse after putting anything down the PEG. Review of Systems Review of Systems: All systems reviewed & are unremarkable except as noted in HPI & below Physical Exam Physical Exam: In general she is awake and alert pleasant no distress. HEENT normocephalic atraumatic mucous membranes moist. Breathing unlabored no accessory muscle use good effort. Skin shows no rashes no pallor or icterus. Neuro without focal deficits. Results & Data Results & Data ([facility]) Vital Signs (Past 12 Hours) Vital Signs Temp Pulse Resp BP Pulse Ox 09/11/21 15:48 98.1 F 90 16 110/69 99 09/11/21 08:15 98.1 F 78 16 119/75 97 PG Care Time/CCT Total # of Minutes Spent Total Time Spent with Patient: Total time spent is greater than 50% in coordination of care (as documented) at patient's floor/unit and/or counseling patient: Coding Level of Care Code 14218 Subseq Hosp Care Lvl 2 Diagnoses Abdominal pain, acute R10.9
[2021-09-11] MEDS: LANSOPRAZOLE 30 MG SOLTAB PEG SCH (21:41)
[2021-09-11] MEDS: traZODone HCL 50 MG TAB PO SCH (21:53)
[2021-09-12] MEDS: NON-FORMULARY PATIENT'S OWN MED OP SCH ×9 (00:01→22:24)
[2021-09-12] MEDS: POLYETHYLENE (MIRALAX) 17 GM PACK PEG SCH ×6 (00:02→20:02)
[2021-09-12] MEDS: TUBE FEEDING WATER FLUSH GT SCH ×4 (02:04→20:02)
[2021-09-12] MEDS: AMPICILLIN/SULBACTAM SOD 1,500 MG in 0.9 % SODIUM CHLORIDE 100 ML IV SCH ×4 (04:55→22:23)
[2021-09-12] MEDS: LEVOTHYROXINE SODIUM 50 MCG TABLET PO SCH (04:55)
[2021-09-12] MEDS: MoRPHine SULFATE 2 MG/ML CARP IV PRN (05:52)
[2021-09-12 06:44] LABS: Basophils # (auto) 0.01 K/uL (0-0.2); Basophils % (auto) 0.1 %; Eosinophils # (auto) 0.02 K/uL (0-0.5); Eosinophils % (auto) 0.3 %; Hematocrit (blood only) 32.5 % (37-47); Hemoglobin 10.1 g/dL (12.0-16.0); Immature Granulocytes # (auto) 0.05 K/uL (0.00-0.02); Immature Granulocytes % (auto) 0.7 %; Lymphocytes # (auto) 0.43 K/uL (1.2-3.4); Lymphocytes % (auto) 5.8 %; Mean Corpuscular Hgb Conc 31.1 g/dL (32-36); Mean Platelet Volume 8.3 fL (7.4-10.4); Monocytes % (auto) 4.1 %; Neutrophils # (auto) 6.58 K/uL (1.4-6.5); Platelet Count 160 K/uL (130-400); RDW Coefficient of Variation 18.2 % (11.5-14.5); RDW Standard Deviation 60.1 fL (36.4-46.3); Red Blood Count 3.61 M/uL (4.2-5.4); White Blood Count 7.39 K/uL (4.8-10.8)
[2021-09-12 07:29] LABS: Albumin Level 1.7 gm/dl (3.4-5.0); BUN Creatinine Ratio 27.7 (10-20); Calcium 8.6 mg/dl (8.5-10.1); Creatinine Clr Calc Pharmacy 99.8 ml/min; Est GFR (African American) 119.4 ml/min; Potassium 3.7 mmol/L (3.5-5.1)
[2021-09-12 07:32] LABS: Albumin Globulin Ratio 0.5 (0.9-2); Bilirubin,Total 0.4 mg/dl (0.2-1); Globulin 3.4 gm/dl (2.5-4.0); Total Protein 5.1 gm/dl (6.4-8.2)
[2021-09-12] MEDS: RESTASIS~ORDER AWAITING ACTION SCH ×2 (07:50→16:18)
[2021-09-12] MEDS: CLARINEX~ORDER AWAITING ACTION SCH ×2 (07:50→16:18)
[2021-09-12] MEDS: FIBERSOURCE HN 1.2 CAL 1000 ML BAG GT SCH ×3 (07:56→16:20)
--- NOTE | 2021-09-12 09:41 | Gastroenterology Progress Note ---
Date of Service September 12, 2021 Assessment & Plan (1) Pneumoperitoneum: Plan: Abdominal pain: Pain likely related to procedure rather than complication. Pneumoperitoneum is expected up to weeks after the procedure. Patient is tolerating advance feedings. Nursing is planning to administer 120 mL 3 times today. Would continue to titrate MiraLAX to BM. Complete 5 days empiric of antibiotics. Feeding tube placement: Bumper loosened yesterday to [address] Gonzalez. Patient continues to have discomfort with tube manipulation. Is not pain with feeding however. Continue to titrate feedings. Dysphagia: Status post feeding tube and advance feedings to goal amount. (2) Dysphagia: (3) S/P percutaneous endoscopic gastrostomy (PEG) tube placement: (4) Abdominal pain, acute: Admission and Anticipated Discharge Date Admission Date: September 09, 2021 Supervising Physician Co-Signing Physician Notes I have seen and examined the patient. I agree with note above by MICHAEL Wills except as noted below. HPI Pt states still getting pain meds but pain has improved at site of PEG site. Feeding gradually being increased. No bowel movements yet. PE Abdomen pos bs, soft, no guarding nor rebound---PEG site no obvious infection A/P pain at PEG site improved malnutrition--feeding per postage machine operator constipation --pt unlikely to tolerate miralax bowel prep but would continue to escalate miralax until bms achieved adnexal lesion on admit CT--discussed with patient yesterday and she states this has known dermoid followed by superannuation funds manager and it gets bigger and smaller. Told her and it was bigger than last CT and follow up as outpt with superannuation funds manager. Subjective Patient sleeping and wakes easily with verbal stimuli. Reports she did well with pain until this morning. Pain worsens with tube manipulation, does not worsen with feedings or flushes. Denies nausea or vomiting. No BM despite Miralax. Feels rumbling in stomach. No significant flatus. Review of Systems Review of Systems: All systems reviewed & are unremarkable except as noted in HPI & below Physical Exam Gastrointestinal (Abdomen): Inspection/Auscultation: abdomen normal to inspection and normal bowel sounds; abdomen not distended Percussion/Palpation: + abdomen tender (at tube insertion site) and abdomen soft feeding tube intact. bumper at 3 cm. split dressing around tube with small amount of dried drainage noted. no redness at insertion site Results & Data ([facility]) Vital Signs (Past 12 Hours) Vital Signs Temp Pulse Resp BP Pulse Ox 09/12/21 07:43 36.9 C 74 16 114/73 96 09/11/21 22:40 36.6 C 67 16 130/79 95 Laboratory Results Laboratory Results - last 24 hr 09/12/21 09/12/21 06:25 06:25 WBC 7.39 RBC 3.61 L Hgb 10.1 L Hct 32.5 L MCV 90.0 MCH 28.0 MCHC 31.1 L RDW Std Deviation 60.1 H RDW Coeff of Lucien 18.2 H Plt Count 160 MPV 8.3 Immature Gran % (Auto) 0.7 Neut % (Auto) 89.0 Lymph % (Auto) 5.8 [place] % (Auto) 4.1 Eos % (Auto) 0.3 Baso % (Auto) 0.1 Neut # (Auto) 6.58 H Lymph # (Auto) 0.43 L [place] # (Auto) 0.30 Eos # (Auto) 0.02 Baso # (Auto) 0.01 Immature Gran # (Auto) 0.05 H Sodium 139 Potassium 3.7 Chloride 108 H Carbon Dioxide 27 Anion Gap 4.0 BUN 12 Creatinine 0.44 L Est Cr Clr Drug Dosing 99.8 Est GFR ( Amer) 119.4 Est GFR (Non-Af Amer) 103.0 BUN/Creatinine Ratio 27.7 H Glucose 96 Calcium 8.6 Total Bilirubin 0.4 AST 12 L ALT 18 Alkaline Phosphatase 60 Total Protein 5.1 L Albumin 1.7 L Globulin 3.4 Albumin/Globulin Ratio 0.5 L Diagnostic Findings Abdomen CT 09/09/21 12:00 CT SCAN OF THE ABDOMEN WITHOUT IV CONTRAST CLINICAL HISTORY: Generalized abdominal pain. Free air. COMPARISON STUDY: Abdominal CT scans dated 09/08/2021. PET/CT dated 03/28/2016. TECHNIQUE: Unenhanced CT scan of the abdomen is performed from the lung bases to the pelvic inlet. Images are reviewed in the axial, sagittal, and coronal planes. IV contrast was administered without complication. Approximately 100 cc of enteric contrast was injected into the gastrostomy tube. A dose lowering technique was utilized adhering to the principles of ALARA. The examination is degraded by streak artifact from the arms which could not be elevated above the abdomen. CT DOSE: 175.27 mGy.cm FINDINGS: Lung bases: The heart is normal in size and without pericardial effusion. There are coronary artery calcifications. There are small pleural effusions, left larger than right with bibasilar atelectasis. These are new from previous. Liver: The unenhanced liver is normal in size, contour, and attenuation. There is no intrahepatic biliary ductal dilatation. Gallbladder: The gallbladder is distended and contains calcified gallstones. There is no CT evidence of acute cholecystitis. Spleen: Normal in size and attenuation. Pancreas: Unremarkable. Adrenal glands: Unremarkable. Kidneys: The unenhanced kidneys are normal in size and without hydronephrosis. Excreted IV contrast is seen within the renal collecting systems and ureters. This degrades assessment for renal calculi. Abdominal vasculature: The abdominal aorta is normal in course and caliber. Stomach and bowel: A percutaneous gastrostomy tube is in place. Enteric contrast is present within the stomach and proximal duodenum. No extraluminal contrast is identified. Imaged portions of the small bowel and colon show no evidence of obstruction. Moderate fecal retention is seen throughout the imaged colon. Peritoneum: There is a small volume of perihepatic and perisplenic ascites, as well as free fluid in the paracolic gutters. A large amount of intraperitoneal free air is seen, greatest below the diaphragm. Lymphadenopathy: None. Skeletal structures: The skeletal structures are osteopenic. There is mild lumbosacral spondylosis. No lytic or blastic lesions are seen. Soft tissues: There is soft tissue gas identified within the subcutaneous soft tissues at the gastrostomy site. IMPRESSION: 1. Again seen is a large amount of intraperitoneal free air in the upper abdomen, as well as a small amount of free fluid in the paracolic gutters. The gastrostomy tube appears to be appropriately positioned, and this likely represents expected postoperative change. There is no evidence of leakage at the gastrostomy site, as no extraluminal contrast is seen. Given the presence of free air, a perforated viscus would be impossible exclude and clinical correlation will be essential. 2. Moderate constipation. 3. Cholelithiasis. 4. Small pleural effusions are new from previous. 5. A small amount of perihepatic and perisplenic ascites has modestly increased from previous. 6. Additional findings as above. ACT 112: Negative or not required by law.' Electronically signed by: Saul Kemp M.D. 09/09/2021 2:13 PM KUB X-Ray 09/11/21 09:38 KUB CLINICAL HISTORY: assess free air COMPARISON STUDY: CT of the abdomen and pelvis and KUB September 09, 2021. FINDINGS: Gastrostomy tube is in place. Note is made of contrast within the colon and rectum. Although suboptimally assessed on this supine exam, there is lucency within the abdomen which likely reflects pneumoperitoneum. In addition, loops of colon are likely outlined by extraluminal gas. Smaller foci of extraluminal gas are present. No evidence for a bowel obstruction. IMPRESSION: Findings suggestive of persistent pneumoperitoneum although suboptimally assessed on supine radiographs. If indicated, upright abdominal or left lateral decubitus radiographs of the abdomen could be obtained. ACT 112: Negative or not required by law. Electronically signed by: Oj Michaels M.D. 09/11/2021 12:24 PM
[2021-09-12] MEDS: TRIAMCINOLONE ACET NASAL SPRAY 10.8ML BTL NAE SCH (09:43)
[2021-09-12] MEDS: FAMOTIDINE 40 MG TABLET OG SCH (09:44)
[2021-09-12] MEDS: predniSONE 50 MG TAB PEG SCH (09:44)
[2021-09-12] MEDS: CHOLECALCIFEROL 1,000 UNITS 25 MCG TAB PEG SCH (09:44)
[2021-09-12] MEDS: LOTEPREDNOL OP SCH ×4 (09:44→20:03)
[2021-09-12] MEDS: ATORVASTATIN 10 MG TAB PO SCH (16:19)
[2021-09-12] MEDS: traZODone HCL 50 MG TAB PO SCH (19:57)
[2021-09-12] MEDS: LANSOPRAZOLE 30 MG SOLTAB PEG SCH (20:02)
[2021-09-13] MEDS: RESTASIS~ORDER AWAITING ACTION SCH ×4 (00:42→23:46)
[2021-09-13] MEDS: CLARINEX~ORDER AWAITING ACTION SCH ×4 (00:42→23:46)
[2021-09-13] MEDS: POLYETHYLENE (MIRALAX) 17 GM PACK PEG SCH ×5 (00:43→22:37)
[2021-09-13] MEDS: NON-FORMULARY PATIENT'S OWN MED OP SCH ×8 (00:45→23:03)
[2021-09-13] MEDS: LEVOTHYROXINE SODIUM 50 MCG TABLET PO SCH (05:13)
[2021-09-13] MEDS: AMPICILLIN/SULBACTAM SOD 1,500 MG in 0.9 % SODIUM CHLORIDE 100 ML IV SCH ×3 (05:13→16:28)
[2021-09-13] MEDS: TUBE FEEDING WATER FLUSH GT SCH ×5 (05:13→23:02)
[2021-09-13] MEDS: MoRPHine SULFATE 2 MG/ML CARP IV PRN (05:13)
[2021-09-13 06:15] LABS: Basophils # (auto) 0.01 K/uL (0-0.2); Basophils % (auto) 0.1 %; Eosinophils # (auto) 0.02 K/uL (0-0.5); Eosinophils % (auto) 0.3 %; Hematocrit (blood only) 31.9 % (37-47); Immature Granulocytes # (auto) 0.09 K/uL (0.00-0.02); Immature Granulocytes % (auto) 1.3 %; Lymphocytes # (auto) 0.52 K/uL (1.2-3.4); Lymphocytes % (auto) 7.5 %; Mean Corpuscular Hemoglobin 28.6 pg (25-34); Mean Corpuscular Hgb Conc 31.3 g/dL (32-36); Mean Corpuscular Volume 91.1 fL (80-100); Mean Platelet Volume 8.5 fL (7.4-10.4); Monocytes # (auto) 0.49 K/uL (0.11-0.59); Monocytes % (auto) 7.1 %; Neutrophils # (auto) 5.82 K/uL (1.4-6.5); Neutrophils % (auto) 83.7 %; Platelet Count 207 K/uL (130-400); RDW Coefficient of Variation 18.1 % (11.5-14.5); RDW Standard Deviation 60.5 fL (36.4-46.3); White Blood Count 6.95 K/uL (4.8-10.8)
[2021-09-13] MEDS: FIBERSOURCE HN 1.2 CAL 1000 ML BAG GT SCH ×5 (06:34→23:02)
[2021-09-13 07:02] LABS: Albumin Level 1.8 gm/dl (3.4-5.0); BUN Creatinine Ratio 23.1 (10-20); Calcium 8.6 mg/dl (8.5-10.1); Creatinine Clr Calc Pharmacy 81.3 ml/min; Est GFR (African American) 111.6 ml/min; Est GFR (Non-African American) 96.3 ml/min; Potassium 3.4 mmol/L (3.5-5.1)
[2021-09-13 07:04] LABS: Albumin Globulin Ratio 0.5 (0.9-2); Bilirubin,Total 0.3 mg/dl (0.2-1); Globulin 3.5 gm/dl (2.5-4.0); Total Protein 5.3 gm/dl (6.4-8.2)
--- NOTE | 2021-09-13 08:16 | Gastroenterology Progress Note ---
Date of Service September 13, 2021 Assessment & Plan (1) S/P percutaneous endoscopic gastrostomy (PEG) tube placement: Plan: Abdominal pain: Pain at PEG site has improved. She states it is tender but not as painful as previous. Has some fears that pain will return and she is reluctant for discharge. Some cramping with bowel movement last night but feeling better this morning. Malnutrition: Feeding per nutrition/dietitian. Nursing reports she is scheduled to have 120 mL of Fiber[employer] HN every 4 hours today with water flushes per nutrition recommendation. Constipation: Bowel movement through the night. + bowel sounds this morning. Dysphagia: Remain n.p.o. Adnexal lesion on admission CT: Known dermoid followed by MARKET PRESIDENT fluctuates in size per patient report. Most recent CT it is enlarged, recommend follow-up with outpatient MARKET PRESIDENT. Please refer to supervising physician addendum for further recommendations. (2) Dysphagia: Admission and Anticipated Discharge Date Admission Date: September 09, 2021 Supervising Physician Co-Signing Physician Notes I have seen and examined the patient. I agree with note above by MICHAEL Wills except as noted below. HPI Abd pain overall better. She is tolerating increased tube feeds. Had large number of BMs overnight. Answered questions from patient and . Wound care nurse came in to room for assessment as I was finishing up with patient. PE Abdomen pos bs, soft, no guarding no rebound A/P abd pain at PEG site--improving malutrition--continue tube feeds per asic engineer constipation--resolved on high frequency miralax, can cut back to maintenance dose anemia--no red nor black stools per patient to suspect GI bleeding, suspect dilutional Dr Payne is assuming GI care beginning tomorrow at 0700. Subjective Patient awake this morning she states she was up all night with diarrhea. She felt some left-sided abdominal discomfort/cramping through the night with bowel movements. She states insertion site is tender but not painful as before. Increased pain does come and go. She is concerned and not ready to go home she is concerned that the pain will return. No nausea or vomiting. She is questioning if her feeding volume needs increased. Review of Systems Review of Systems: All systems reviewed & are unremarkable except as noted in Subjective Physical Exam Gastrointestinal (Abdomen): Inspection/Auscultation: normal bowel sounds; abdomen not distended Percussion/Palpation: abdomen soft; abdomen nontender There is some redness noted on the left side of the feeding tube most likely from pressure and some drainage noted on the split drainage pad. No obvious signs of infection. Results & Data ([facility]) Vital Signs (Past 12 Hours) Vital Signs Temp Pulse Resp BP BP Pulse Ox 09/13/21 07:45 36.7 C 77 16 100/63 97 09/12/21 22:26 36.3 C L 68 15 143/87 H 94 Laboratory Results Laboratory Results - last 24 hr 09/13/21 09/13/21 05:45 05:45 WBC 6.95 RBC 3.50 L Hgb 10.0 L Hct 31.9 L MCV 91.1 MCH 28.6 MCHC 31.3 L RDW Std Deviation 60.5 H RDW Coeff of Lucien 18.1 H Plt Count 207 MPV 8.5 Immature Gran % (Auto) 1.3 Neut % (Auto) 83.7 Lymph % (Auto) 7.5 [place] % (Auto) 7.1 Eos % (Auto) 0.3 Baso % (Auto) 0.1 Neut # (Auto) 5.82 Lymph # (Auto) 0.52 L [place] # (Auto) 0.49 Eos # (Auto) 0.02 Baso # (Auto) 0.01 Immature Gran # (Auto) 0.09 H Sodium 140 Potassium 3.4 L Chloride 107 Carbon Dioxide 26 Anion Gap 7.0 BUN 12 Creatinine 0.54 L Est Cr Clr Drug Dosing 81.3 Est GFR ( Amer) 111.6 Est GFR (Non-Af Amer) 96.3 BUN/Creatinine Ratio 23.1 H Glucose 96 Calcium 8.6 Total Bilirubin 0.3 AST 9 L ALT 18 Alkaline Phosphatase 59 Total Protein 5.3 L Albumin 1.8 L Globulin 3.5 Albumin/Globulin Ratio 0.5 L
[2021-09-13] MEDS ORDERED: POTASSIUM CHLORIDE 20 MEQ/15 ML UDC PEG STA (08:39)
[2021-09-13] MEDS: CHOLECALCIFEROL 1,000 UNITS 25 MCG TAB PEG SCH (09:59)
[2021-09-13] MEDS: predniSONE 50 MG TAB PEG SCH (09:59)
[2021-09-13] MEDS: FAMOTIDINE 40 MG TABLET OG SCH (09:59)
[2021-09-13] MEDS: LOTEPREDNOL OP SCH ×5 (10:01→22:36)
[2021-09-13] MEDS: TRIAMCINOLONE ACET NASAL SPRAY 10.8ML BTL NAE SCH (10:02)
[2021-09-13] MEDS: ATORVASTATIN 10 MG TAB PO SCH (16:30)
--- NOTE | 2021-09-13 18:12 | Hospitalist Progress Note ---
Date of Service September 13, 2021 Assessment & Plan (1) Abdominal pain, acute: Plan: Abdominal pain s/p PEG - post PEG placement - due to air (and also likely due to constipation) but no peritonitis/leak - symptom control. improving. constipation resolved. trial of liquid morphine in PEG prior to IV prn pain --> goal being to have potential backup plan for home prn severe pain constipation - resolved w miralax, back down to BID//titrate to bowel movements Positive JENNIE - recent biopsy for temporal arteritis negative -Continue corticosteroids - JENNIE positive, 1:320. 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 worker in Sep 2021 Chronic Conditions GERD: Change back to PEG famotidine and omeprazole Hypothyroidism: cont levothyroxine Allergic rhinitis: cont nasal sprays, eye drops PRN Depression: cont trazodone HS DVT ppx: SCDs FEN/GI: NPO no sips no medsnotes that she is a severe aspiration risk Bowel regimen: dulcolax, mag citrate prn Code Status: full code Dispo: Stable on MedSurg, anticipate being able to go home after discharge (main criteria for discharge being pain improving, and able to tolerate PEG intake - showing progress in all aspects) Admission and Anticipated Discharge Date Admission Date: September 09, 2021 Subjective pain continues to improve. had a lot of BM through the night. tolerating increase in volume of tube feeds without pain/nausea/bloating. overall abdominal pain seems to have a pattern of lessening severity and frequency - but does still have times where it can get fairly intense Review of Systems Review of Systems: All systems reviewed & are unremarkable except as noted in HPI & below Physical Exam Physical Exam: gen aaox3 pleasant nad heent nc at mmm breathing unlabored no accessory muscles good effort skin no rashes no pallor or icterus neuro no focal deficits Results & Data Results & Data ([facility]) Vital Signs (Past 12 Hours) Vital Signs Temp Pulse Resp BP Pulse Ox 09/13/21 15:24 98.6 F 71 16 120/75 94 09/13/21 07:45 98.1 F 77 16 100/63 97 PG Care Time/CCT Total # of Minutes Spent Total Time Spent with Patient: Total time spent is greater than 50% in coordination of care (as documented) at patient's floor/unit and/or counseling patient: Coding Level of Care Code 44568 Subseq Hosp Care Lvl 2 Diagnoses Abdominal pain, acute R10.9
[2021-09-13] MEDS: LANSOPRAZOLE 30 MG SOLTAB PEG SCH (23:02)
[2021-09-13] MEDS: AMOXICILLIN/CLAVULANATE SUSP 250MG/5ML 75ML BOTTLE GT SCH (23:02)
[2021-09-13] MEDS: traZODone HCL 50 MG TAB PO SCH (23:02)
[2021-09-14] MEDS: NON-FORMULARY PATIENT'S OWN MED OP SCH ×8 (02:38→23:35)
[2021-09-14] MEDS: TUBE FEEDING WATER FLUSH GT SCH ×2 (04:00→08:20)
[2021-09-14] MEDS: LEVOTHYROXINE SODIUM 50 MCG TABLET PO SCH (06:26)
[2021-09-14] MEDS: MoRPHine SULFATE 2 MG/ML CARP IV PRN (07:09)
[2021-09-14] MEDS: RESTASIS~ORDER AWAITING ACTION SCH ×2 (07:22→15:24)
[2021-09-14] MEDS: CLARINEX~ORDER AWAITING ACTION SCH ×2 (07:22→15:24)
[2021-09-14] MEDS: CHOLECALCIFEROL 1,000 UNITS 25 MCG TAB PEG SCH (08:18)
[2021-09-14] MEDS: POLYETHYLENE (MIRALAX) 17 GM PACK PEG SCH (08:18)
[2021-09-14] MEDS: LOTEPREDNOL OP SCH ×4 (08:18→21:32)
[2021-09-14] MEDS: predniSONE 50 MG TAB PEG SCH (08:18)
[2021-09-14] MEDS: FAMOTIDINE 40 MG TABLET OG SCH (08:18)
[2021-09-14] MEDS: TRIAMCINOLONE ACET NASAL SPRAY 10.8ML BTL NAE SCH (08:19)
[2021-09-14] MEDS: FIBERSOURCE HN 1.2 CAL 1000 ML BAG GT SCH ×4 (08:20→18:26)
[2021-09-14] MEDS: AMOXICILLIN/CLAVULANATE SUSP 250MG/5ML 75ML BOTTLE GT SCH ×3 (08:24→21:32)
[2021-09-14 08:49] LABS: Basophils # (auto) 0.01 K/uL (0-0.2); Basophils % (auto) 0.1 %; Eosinophils # (auto) 0.03 K/uL (0-0.5); Eosinophils % (auto) 0.4 %; Hematocrit (blood only) 33.7 % (37-47); Hemoglobin 10.5 g/dL (12.0-16.0); Immature Granulocytes # (auto) 0.21 K/uL (0.00-0.02); Immature Granulocytes % (auto) 2.6 %; Lymphocytes # (auto) 0.92 K/uL (1.2-3.4); Lymphocytes % (auto) 11.3 %; Mean Corpuscular Hemoglobin 28.3 pg (25-34); Mean Corpuscular Hgb Conc 31.2 g/dL (32-36); Mean Corpuscular Volume 90.8 fL (80-100); Mean Platelet Volume 8.2 fL (7.4-10.4); Monocytes # (auto) 0.55 K/uL (0.11-0.59); Monocytes % (auto) 6.8 %; Neutrophils # (auto) 6.42 K/uL (1.4-6.5); Neutrophils % (auto) 78.8 %; Platelet Count 237 K/uL (130-400); RDW Coefficient of Variation 18.1 % (11.5-14.5); RDW Standard Deviation 60.7 fL (36.4-46.3); Red Blood Count 3.71 M/uL (4.2-5.4); White Blood Count 8.14 K/uL (4.8-10.8)
[2021-09-14 09:18] LABS: Albumin Level 1.8 gm/dl (3.4-5.0); Calcium 8.4 mg/dl (8.5-10.1); Creatinine Clr Calc Pharmacy 87.8 ml/min; Est GFR (African American) 114.5 ml/min; Est GFR (Non-African American) 98.8 ml/min; Potassium 3.4 mmol/L (3.5-5.1)
[2021-09-14] MEDS ORDERED: POTASSIUM CHLORIDE 20 MEQ/15 ML UDC PEG STA (09:21)
[2021-09-14 09:22] LABS: Albumin Globulin Ratio 0.5 (0.9-2); Globulin 3.4 gm/dl (2.5-4.0); Total Protein 5.2 gm/dl (6.4-8.2)
[2021-09-14 09:36] LABS: Bilirubin,Total 0.3 mg/dl (0.2-1)
--- NOTE | 2021-09-14 10:03 | Gastroenterology Progress Note ---
Date of Service September 14, 2021 Assessment & Plan (1) S/P percutaneous endoscopic gastrostomy (PEG) tube placement: (2) Dysphagia: (3) Abdominal pain, acute: Plan: improving overall, tolerating tube feeds well. recs: --continue tube feeds as per nutrition recommendations --patient education on how to use PEG tube for feedings,etc. --supportive care, pain control prn --can follow up with [facility] as an outpatient 1-2 weeks after discharge --miralax prn constipation rest as per primary team Admission and Anticipated Discharge Date Admission Date: September 09, 2021 Subjective no events overnight, miralax has been decreased. her abdominal pains have improved overall, requiring less pain medication. tube feeds are going well without issue. Zinc oxide ointment applied by wound care yesterday around PEG site, appears clean and intact today. vss, labs reviewed. Review of Systems Constitutional: no fever and no chills Respiratory: no cough, no dyspnea and no dyspnea on exertion Cardiovascular: no chest pain and no dyspnea Gastrointestinal: as per Subjective / HPI Psychiatric: no depression and no anxiety Physical Exam Constitutional: WD/WN, vitals as above Respiratory: normal respiratory effort, lungs clear to auscultation Cardiovascular: RRR, no murmur, no edema Gastrointestinal (Abdomen): normal bowel sounds, soft, nontender, no hepatosplenomegaly (PEG site c/d/i) Musculoskeletal: no lower extremity edema Psychiatric: A+Ox3, euthymic affect Results & Data Results & Data ([facility]) Vital Signs (Past 12 Hours) Vital Signs Temp Pulse Resp BP Pulse Ox 09/14/21 07:50 36.7 C 68 16 107/68 96 09/13/21 22:44 36.6 C 62 15 137/87 98 PG Care Time/CCT Total # of Minutes Spent Total Time Spent with Patient: Total time spent is greater than 50% in coordination of care (as documented) at patient's floor/unit and/or counseling patient: Coding Level of Care Code 34296 Subseq Hosp Care Lvl 3 Diagnoses S/P percutaneous endoscopic gastrostomy (PEG) tube placement Z93.1 Dysphagia R13.10 Abdominal pain, acute R10.9
[2021-09-14] MEDS: THIAMINE HCL 100 MG TAB PEG SCH (14:37)
[2021-09-14] MEDS: [UNRECOGNIZED DRUG - REMARK] GT SCH ×2 (14:38→18:26)
[2021-09-14] MEDS: [UNRECOGNIZED DRUG - REMARK] GT SCH ×2 (14:38→18:26)
[2021-09-14] MEDS: ATORVASTATIN 10 MG TAB PO SCH (18:16)
[2021-09-14] MEDS ORDERED: POLYETHYLENE (MIRALAX) 17 GM PACK PEG PRN (20:07)
--- NOTE | 2021-09-14 20:12 | Hospitalist Progress Note ---
Date of Service September 14, 2021 Assessment & Plan (1) Abdominal pain, acute: Plan: Abdominal pain s/p PEG - post PEG placement - due to air (and also likely due to constipation) but no peritonitis/leak - symptom control. improving. constipation resolved. trial of liquid morphine in PEG prior to IV prn pain --> goal being to have potential backup plan for home prn severe pain. Tolerating increase in feeding well. 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 Chronic Conditions GERD: Change back to PEG famotidine and omeprazole Hypothyroidism: cont levothyroxine Allergic rhinitis: cont nasal sprays, eye drops PRN Depression: cont trazodone HS DVT ppx: SCDs FEN/GI: NPO no sips no medsnotes that she is a severe aspiration risk Bowel regimen: dulcolax, mag citrate prn Code Status: full code Dispo: Stable on MedSurg, tolerating increase in feeding well, home nursing does not start until Saturday, but as she gets more and more comfortable with using her tube, and as she tolerates the feeds, possibly she will feel comfortable going home sooner and then home nursing can assist when they arrive. Admission and Anticipated Discharge Date Admission Date: September 09, 2021 Subjective Still had some loose stools and diarrhea related to the MiraLAX. Now starting to improve. Abdominal pain overall improving. Still feels a bit overwhelmed at the idea of using the PEG tube at homebut is starting to feel more comfortable with that than before. Notes that she has been watching nursing and taking mental notesshe thought that maybe tomorrow she would try to use it once. I encouraged her to start using it tonight, and then tomorrow try to use it for everything herself just with nursing supervision. In discussing with case management, home nursing is not able to be started until Saturday. Review of Systems Review of Systems: All systems reviewed & are unremarkable except as noted in HPI & below Physical Exam Physical Exam: In general she is awake and alert pleasant no distress. HEENT normocephalic atraumatic mucous membranes moist. Breathing unlabored no accessory muscle use good effort. Skin shows no rashes no pallor or icterus. Neuro without focal deficits. Results & Data Results & Data ([facility]) Vital Signs (Past 12 Hours) Vital Signs Temp Pulse Resp BP Pulse Ox 09/14/21 15:58 98.1 F 79 16 103/66 96 PG Care Time/CCT Total # of Minutes Spent Total Time Spent with Patient: Total time spent is greater than 50% in coordination of care (as documented) at patient's floor/unit and/or counseling patient: Coding Level of Care Code 35296 Subseq Hosp Care Lvl 2 Diagnoses Abdominal pain, acute R10.9
[2021-09-14] MEDS: traZODone HCL 50 MG TAB PO SCH (21:31)
[2021-09-14] MEDS: LANSOPRAZOLE 30 MG SOLTAB PEG SCH (21:32)
[2021-09-15] MEDS: CLARINEX~ORDER AWAITING ACTION SCH ×3 (00:34→12:16)
[2021-09-15] MEDS: RESTASIS~ORDER AWAITING ACTION SCH ×3 (00:34→16:40)
[2021-09-15] MEDS: MoRPHine SULFATE 2 MG/ML CARP IV PRN ×2 (00:35→04:24)
[2021-09-15] MEDS: NON-FORMULARY PATIENT'S OWN MED OP SCH ×8 (02:02→22:55)
[2021-09-15] MEDS: LEVOTHYROXINE SODIUM 50 MCG TABLET PO SCH (06:27)
[2021-09-15] MEDS ORDERED: POTASSIUM CHLORIDE 20 MEQ/15 ML UDC PO SCH (09:00)
[2021-09-15] MEDS: [UNRECOGNIZED DRUG - REMARK] GT SCH ×4 (09:16→19:26)
[2021-09-15] MEDS: FIBERSOURCE HN 1.2 CAL 1000 ML BAG GT SCH ×4 (09:16→19:26)
[2021-09-15] MEDS: [UNRECOGNIZED DRUG - REMARK] GT SCH ×4 (09:16→19:26)
[2021-09-15] MEDS: LOTEPREDNOL OP SCH ×4 (09:17→20:46)
[2021-09-15] MEDS: AMOXICILLIN/CLAVULANATE SUSP 250MG/5ML 75ML BOTTLE GT SCH (09:18)
[2021-09-15] MEDS: TRIAMCINOLONE ACET NASAL SPRAY 10.8ML BTL NAE SCH (09:20)
[2021-09-15] MEDS: CHOLECALCIFEROL 1,000 UNITS 25 MCG TAB PEG SCH (09:21)
[2021-09-15] MEDS: THIAMINE HCL 100 MG TAB PEG SCH (09:21)
[2021-09-15] MEDS: predniSONE 50 MG TAB PEG SCH (09:21)
[2021-09-15] MEDS: FAMOTIDINE 40 MG TABLET OG SCH (09:21)
--- NOTE | 2021-09-15 12:01 | Gastroenterology Progress Note ---
Date of Service September 15, 2021 Assessment & Plan (1) Abdominal pain, acute: (2) S/P percutaneous endoscopic gastrostomy (PEG) tube placement: Plan: improving overall recs: --continue PEG tube education, patient and her can administer the feeds --supportive care --pain control prn --miralax prn constipation --can follow up with [facility] in 1-2 weeks Admission and Anticipated Discharge Date Admission Date: September 09, 2021 Subjective no events overnight, afebrile, VSS. she did require two doses of pain medication overnight. She has started to feed herself with the tube feeds and getting more comfortable with it. would also like her to do this/learn while she is here. having bowel movements without any miralax. labs reviewed. Review of Systems Constitutional: no fever and no chills Respiratory: no cough, no dyspnea and no dyspnea on exertion Cardiovascular: no chest pain and no dyspnea Gastrointestinal: as per Subjective / HPI Psychiatric: no depression and no anxiety Physical Exam Constitutional: WD/WN, vitals as above Respiratory: normal respiratory effort, lungs clear to auscultation Cardiovascular: RRR, no murmur, no edema Gastrointestinal (Abdomen): normal bowel sounds, soft, nontender, no hepatosplenomegaly (PEG tube in place, c/d/i) Musculoskeletal: no lower extremity edema Psychiatric: A+Ox3, euthymic affect Results & Data Results & Data ([place]) Vital Signs (Past 12 Hours) Vital Signs Temp Pulse Resp BP Pulse Ox 09/15/21 07:16 36.6 C 71 18 102/67 96 PG Care Time/CCT Total # of Minutes Spent Total Time Spent with Patient: Total time spent is greater than 50% in coordination of care (as documented) at patient's floor/unit and/or counseling patient: Coding Level of Care Code 69985 Subseq Hosp Care Lvl 3 Diagnoses Abdominal pain, acute R10.9 S/P percutaneous endoscopic gastrostomy (PEG) tube placement Z93.1
[2021-09-15] MEDS: AMOXICILLIN/CLAVULANATE SUSP 200 MG/5 ML 50ML GT SCH ×2 (15:37→20:46)
[2021-09-15] MEDS: ATORVASTATIN 10 MG TAB PO SCH (16:43)
--- NOTE | 2021-09-15 19:14 | Hospitalist Progress Note ---
Date of Service September 15, 2021 Assessment & Plan (1) Abdominal pain, acute: Plan: likely combination of post-PEG procedural pain, pneumoperitoneum (often seen in setting of PEG placement), ?constipation with spasm?, etc. overall improving relative to admission. no nausea/emesis. tolerating the feedings. cont pain meds prn. (2) Pneumoperitoneum: Plan: 2nd to #3 below. improving. soft, benign abdomen on exam today. GI following - nothing to do at this time. gen surg evaluated her early in the admission - nothing surgical. remains on prophylactic antibiotics (augmentin) via PEG. day #7 of total abx. (3) S/P percutaneous endoscopic gastrostomy (PEG) tube placement: Plan: 09/08/21 -- by [facility]. see #1 above. 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 s/p PEG placement 09/08/21 as above. (5) Cancer of ethmoid sinus: (6) Positive JENNIE (antinuclear antibody): Plan: s/p temporal artery biopsy 08/16/21 - negative for TA, but had been on steroids, and neurology office notes suggest that her history was highly suspicious for such. she remains on prednisone 50mg/day and has rheum f/u in September. her JENNIE is positive at a high titer and, if TA is not present, may have some other autoimmune disease. cont prednisone via PEG. (7) Hypothyroidism: Plan: TSH 06/2021 wnl cont synthroid Plan: cont current PEG feedings 5x/day as set by nutrition cont PEG teaching extensively updated at bedside Admission and Anticipated Discharge Date Admission Date: September 09, 2021 Subjective pt's at bedside during the visit she states that she and her are learning to do the tube feedings and learning the general operation of the PEG - don't feel comfortable with discharge. want to learn the operation of PEG fully before d/c - hoping to go home on Saturday. she has had intermittent abd pain but MUCH better relative to earlier in her stay. no nausea or emesis. having liquid bowel movements. staff report that she is doing a good job with self-usage of PEG when taught/shown. Review of Systems Review of Systems: gen - no fevers, some fatigue cv - no cp, no orthopnea pulm - no cough, no dyspnea GI - mild intermittent abd pain - usually occurs after giving herself her tube feedings - no voiding symptoms Physical Exam Physical Exam: gen - very thin but NAD, pleasant; a little anxious at times mouth - MMM, no thrush plaques neck - no JVD heart - RRR, s1 s2, no murmur lungs - CTA b/l abd - soft, no peritoneal signs; BS+; ND; PEG tube site slight serosanguinous drainage on the tube dressing; NT ext - no edema, pulses 2+ b/l psych - a/o x 3 Results & Data Results & Data ([facility]) Vital Signs (Past 12 Hours) Vital Signs Temp Pulse Resp BP Pulse Ox 09/15/21 15:43 36.8 C 74 18 97/67 L 95 09/15/21 07:16 36.6 C 71 18 102/67 96 PG Care Time/CCT Total # of Minutes Spent Total Time Spent with Patient: Total time spent is greater than 50% in coordination of care (as documented) at patient's floor/unit and/or counseling patient: Coding Level of Care Code 97066 Subseq Hosp Care Lvl 2 Diagnoses Abdominal pain, acute R10.9 Pneumoperitoneum K66.8 S/P percutaneous endoscopic gastrostomy (PEG) tube placement Z93.1 Dysphagia R13.10 Cancer of ethmoid sinus C31.1 Positive JENNIE (antinuclear antibody) R76.8 Hypothyroidism E03.9
[2021-09-15] MEDS: traZODone HCL 50 MG TAB PO SCH (20:45)
[2021-09-15] MEDS: LANSOPRAZOLE 30 MG SOLTAB PEG SCH (20:45)
[2021-09-16] MEDS: CLARINEX~ORDER AWAITING ACTION SCH ×4 (00:16→23:58)
[2021-09-16] MEDS: RESTASIS~ORDER AWAITING ACTION SCH ×4 (00:16→23:58)
[2021-09-16] MEDS: NON-FORMULARY PATIENT'S OWN MED OP SCH ×8 (02:10→22:47)
[2021-09-16] MEDS: LEVOTHYROXINE SODIUM 50 MCG TABLET PO SCH (05:51)
[2021-09-16] MEDS: FIBERSOURCE HN 1.2 CAL 1000 ML BAG GT SCH ×5 (06:37→23:59)
[2021-09-16] MEDS: [UNRECOGNIZED DRUG - REMARK] GT SCH ×4 (06:38→20:19)
[2021-09-16] MEDS: [UNRECOGNIZED DRUG - REMARK] GT SCH ×4 (06:38→20:19)
[2021-09-16 09:01] LABS: BUN Creatinine Ratio 26.4 (10-20); Calcium 8.8 mg/dl (8.5-10.1); Est GFR (African American) 106.1 ml/min; Est GFR (Non-African American) 91.5 ml/min; Magnesium 2.2 mg/dl (1.8-2.4); Potassium 3.4 mmol/L (3.5-5.1)
[2021-09-16] MEDS: MoRPHine SULFATE 5 MG/0.25 ML UDP PO PRN ×2 (09:35→14:18)
[2021-09-16] MEDS: AMOXICILLIN/CLAVULANATE SUSP 200 MG/5 ML 50ML GT SCH ×3 (09:35→22:42)
[2021-09-16] MEDS: TRIAMCINOLONE ACET NASAL SPRAY 10.8ML BTL NAE SCH (09:36)
[2021-09-16] MEDS: LOTEPREDNOL OP SCH ×4 (09:37→22:13)
[2021-09-16] MEDS: predniSONE 50 MG TAB PEG SCH (09:37)
[2021-09-16] MEDS: FAMOTIDINE 40 MG TABLET OG SCH (09:38)
[2021-09-16] MEDS: CHOLECALCIFEROL 1,000 UNITS 25 MCG TAB PEG SCH (09:38)
[2021-09-16] MEDS: THIAMINE HCL 100 MG TAB PEG SCH (09:39)
[2021-09-16] MEDS ORDERED: POTASSIUM CHLORIDE 20 MEQ/15 ML UDC PEG STA (10:11)
--- NOTE | 2021-09-16 13:23 | Gastroenterology Progress Note ---
Date of Service September 16, 2021 Assessment & Plan (1) S/P percutaneous endoscopic gastrostomy (PEG) tube placement: (2) Abdominal pain, acute: Plan: continues to improve, self-administering feeds for PEG tube recs: --continue self-administration of feeds for PEG tube, patient education --stable for discharge from GI perspective --miralax prn constipation, pain control prn --follow up with [facility] in 1-2 weeks Admission and Anticipated Discharge Date Admission Date: September 09, 2021 Subjective no events overnight, did not require pain medication overnight, feeling better, having bowel movements without any miralax. She is more comfortable with doing the PEG feedings herself and did them this morning. vss, afebrile. Review of Systems Constitutional: no fever and no chills Respiratory: no cough, no dyspnea and no dyspnea on exertion Cardiovascular: no chest pain and no dyspnea Gastrointestinal: as per Subjective / HPI Psychiatric: no depression and no anxiety Physical Exam Constitutional: WD/WN, vitals as above Respiratory: normal respiratory effort, lungs clear to auscultation Cardiovascular: RRR, no murmur, no edema Gastrointestinal (Abdomen): normal bowel sounds, soft, nontender, no hepatosplenomegaly Musculoskeletal: no lower extremity edema Psychiatric: A+Ox3, euthymic affect Results & Data Results & Data ([facility]) Vital Signs (Past 12 Hours) Vital Signs Temp Pulse Resp BP Pulse Ox 09/16/21 07:54 36.7 C 68 16 96/59 L 98 PG Care Time/CCT Total # of Minutes Spent Total Time Spent with Patient: Total time spent is greater than 50% in coordination of care (as documented) at patient's floor/unit and/or counseling patient: Coding Level of Care Code 46695 Subseq Hosp Care Lvl 3 Diagnoses S/P percutaneous endoscopic gastrostomy (PEG) tube placement Z93.1 Abdominal pain, acute R10.9
[2021-09-16] MEDS: ATORVASTATIN 10 MG TAB PO SCH (16:32)
--- NOTE | 2021-09-16 19:10 | XRay Report ---
XR abdomen min 2V CLINICAL HISTORY: recent PEG placement; LUQ pain TECHNIQUE: Upright and supine views of the abdomen was obtained. Comparison: Comparison is made to chest one view 09/11/2021 FINDINGS: Gastrostomy tube is seen. On the frontal radiograph, pneumoperitoneum is noted under the bilateral he midiaphragms. The bowel gas pattern is nonobstructive. A moderate amount of stool is noted within the large bowel. IMPRESSION: Pneumoperitoneum, correlation with procedural history is recommended. No evidence of obstruction. ACT 112: Negative or not required by law. Electronically signed by: Armand Mclain M.D. 09/16/2021 7:09 PM
--- NOTE | 2021-09-16 20:37 | Hospitalist Progress Note ---
Date of Service September 16, 2021 Assessment & Plan (1) Abdominal pain, acute: Plan: likely combination of post-PEG procedural pain, pneumoperitoneum (often seen in setting of PEG placement), ?constipation with spasm?, etc. overall improving relative to admission. however still having pain. also reports liquid stools. check cdiff toxin due to augmentin. check abd x-ray to ensure pneumoperitoneum is improved. cont pain meds prn. on a whole her symptoms are better. (2) Pneumoperitoneum: Plan: 2nd to #3 below. improving radiographically. soft, benign abdomen once again today. GI following - nothing to do at this time. gen surg evaluated her early in the admission - nothing surgical. remains on prophylactic antibiotics (augmentin) via PEG. day #8 of total abx. (3) S/P percutaneous endoscopic gastrostomy (PEG) tube placement: Plan: 09/08/21 -- by [facility]. see #1 above. 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 s/p PEG placement 09/08/21 as above. (5) Cancer of ethmoid sinus: Plan: history of (6) Positive JENNIE (antinuclear antibody): Plan: s/p temporal artery biopsy 08/16/21 - negative for TA, but had been on steroids, and neurology office notes suggest that her history was highly suspicious for such. she remains on prednisone 50mg/day and has rheum f/u in September. her JENNIE is positive at a high titer and, if TA is not present, may have some other autoimmune disease. cont prednisone via PEG. (7) Hypothyroidism: Plan: TSH 06/2021 wnl cont synthroid (8) Gallstones: Plan: I don't believe these are the cause of her abd pain. Pain is LUQ, not RUQ. Previous CT did not suggest acute cholecystitis. She is aware of gallstones. (9) Hypokalemia: Plan: replete via PEG repeat BMP am mag 2.2 today Plan: cont current PEG feedings 5x/day as set by nutrition cont PEG teaching extensively updated at bedside once again hopefully home tomorrow home health nursing to see patient SATURDAY Admission and Anticipated Discharge Date Admission Date: September 09, 2021 Subjective pt had 3-4 liquid stools overnight none today she overall continues to feel better abd pain is "nothing like it was" is still requiring morphine via PEG occasionally mostly the pain is following a tube feeding bolus hits 10-20 minutes later or sometimes sooner pain is LUQ - NOT the RUQ no lower abd pain again pain is much better than prior no nausea or emesis most importantly patient and her report that they are comfortable with tube feedings, meds via PEG, and PEG maintenance on a whole Review of Systems Review of Systems: gen - no fevers CV - no chest pain pulm - no cough, no congestion GI - see HPI; no RUQ pain - no dysuria, no frequency or incontinence Physical Exam Physical Exam: gen - very thin but NAD, pleasant; looks good today mouth - MMM, no thrush plaques neck - no JVD heart - RRR, s1 s2, no murmur lungs - CTA b/l abd - soft, no peritoneal signs; BS+; ND; PEG tube site very clean; nontender ext - no edema, pulses 2+ b/l psych - a/o x 3 Results & Data Results & Data ([facility] [place]) Vital Signs (Past 12 Hours) Vital Signs Temp Pulse Resp BP Pulse Ox 09/16/21 15:31 36.9 C 66 16 110/74 92 Laboratory Results Laboratory Results - last 24 hr 09/16/21 08:26 Sodium 140 Potassium 3.4 L Chloride 106 Carbon Dioxide 28 Anion Gap 6.0 BUN 17 D Creatinine 0.63 Est Cr Clr Drug Dosing 62.0 Est GFR ( Amer) 106.1 Est GFR (Non-Af Amer) 91.5 BUN/Creatinine Ratio 26.4 H Glucose 146 H Calcium 8.8 Magnesium 2.2 PG Care Time/CCT Total # of Minutes Spent Total Time Spent with Patient: Total time spent is greater than 50% in coordination of care (as documented) at patient's floor/unit and/or counseling patient: Coding Level of Care Code 64763 Subseq Hosp Care Lvl 3 Diagnoses Abdominal pain, acute R10.9 Pneumoperitoneum K66.8 S/P percutaneous endoscopic gastrostomy (PEG) tube placement Z93.1 Dysphagia R13.10 Cancer of ethmoid sinus C31.1 Positive JENNIE (antinuclear antibody) R76.8 Hypothyroidism E03.9 Gallstones K80.20 Hypokalemia E87.6
[2021-09-16] MEDS: LANSOPRAZOLE 30 MG SOLTAB PEG SCH (22:13)
[2021-09-16] MEDS: traZODone HCL 50 MG TAB PO SCH (22:13)
[2021-09-17] MEDS: NON-FORMULARY PATIENT'S OWN MED OP SCH ×4 (02:16→12:27)
[2021-09-17] MEDS: LEVOTHYROXINE SODIUM 50 MCG TABLET PO SCH (06:42)
[2021-09-17] MEDS: FIBERSOURCE HN 1.2 CAL 1000 ML BAG GT SCH ×2 (08:26→12:27)
[2021-09-17] MEDS: [UNRECOGNIZED DRUG - REMARK] GT SCH ×3 (08:27→12:36)
[2021-09-17] MEDS: [UNRECOGNIZED DRUG - REMARK] GT SCH ×3 (08:27→12:36)
[2021-09-17] MEDS: TRIAMCINOLONE ACET NASAL SPRAY 10.8ML BTL NAE SCH (08:27)
[2021-09-17] MEDS: FAMOTIDINE 40 MG TABLET OG SCH (08:28)
[2021-09-17] MEDS: AMOXICILLIN/CLAVULANATE SUSP 200 MG/5 ML 50ML GT SCH (08:28)
[2021-09-17] MEDS: RESTASIS~ORDER AWAITING ACTION SCH (08:28)
[2021-09-17] MEDS: CHOLECALCIFEROL 1,000 UNITS 25 MCG TAB PEG SCH (08:28)
[2021-09-17] MEDS: predniSONE 50 MG TAB PEG SCH (08:28)
[2021-09-17] MEDS: THIAMINE HCL 100 MG TAB PEG SCH (08:28)
[2021-09-17] MEDS: LOTEPREDNOL OP SCH ×2 (08:29→13:41)
[2021-09-17 09:03] LABS: Basophils # (auto) 0.01 K/uL (0-0.2); Basophils % (auto) 0.1 %; Eosinophils # (auto) 0.05 K/uL (0-0.5); Eosinophils % (auto) 0.6 %; Hematocrit (blood only) 36.5 % (37-47); Hemoglobin 11.5 g/dL (12.0-16.0); Immature Granulocytes # (auto) 0.17 K/uL (0.00-0.02); Immature Granulocytes % (auto) 2.1 %; Mean Corpuscular Hemoglobin 28.4 pg (25-34); Mean Corpuscular Hgb Conc 31.5 g/dL (32-36); Mean Corpuscular Volume 90.1 fL (80-100); Mean Platelet Volume 8.3 fL (7.4-10.4); Monocytes # (auto) 0.59 K/uL (0.11-0.59); Monocytes % (auto) 7.3 %; Neutrophils # (auto) 5.98 K/uL (1.4-6.5); Neutrophils % (auto) 73.9 %; Platelet Count 346 K/uL (130-400); RDW Coefficient of Variation 18.5 % (11.5-14.5); RDW Standard Deviation 61.2 fL (36.4-46.3); Red Blood Count 4.05 M/uL (4.2-5.4)
[2021-09-17 09:25] LABS: BUN Creatinine Ratio 29.5 (10-20); Calcium 8.9 mg/dl (8.5-10.1); Creatinine Clr Calc Pharmacy 73.1 ml/min; Est GFR (African American) 112.3 ml/min; Est GFR (Non-African American) 96.9 ml/min; Potassium 3.6 mmol/L (3.5-5.1)
[2021-09-17] MEDS: CLARINEX~ORDER AWAITING ACTION SCH (10:43)
--- NOTE | 2021-09-17 11:38 | Discharge Summary ---
Date of Service date of admission - September 09, 2021 date of discharge - September 17, 2021 Admission HPI Per Admitting Provider 71 yo F with PEG tube placement on 09/08/21 who was brought to ER for severe intractable abdominal pain that started after initiation of first Boost feeding at home. Per , she had 120 ml of boost via Peg tube followed by free water flush, and immediately had severe abdominal pain that wouldn't go away. She denies any nausea, emesis, diarrhea. No measured fevers, chills, sweats. She describes the pain as being sharp, located mostly in the mid to lower abdomen, worse with any movement or pressure. ER course: pain control with fentanyl, GI and surgical consult, ceftriaxone & metronidazole Principal Diagnosis 1. Post-procedural abdominal pain - improving 2. PEG tube placement 09/08/21 Discharge Exam gen - very thin but NAD, pleasant mouth - MMM, no thrush plaques neck - no JVD heart - RRR, s1 s2, no murmur lungs - CTA b/l abd - soft, no peritoneal signs; BS+; ND; PEG tube site very clean; nontender ext - no edema, pulses 2+ b/l psych - a/o x 3 Discharge Data Allergies Allergy/AdvReac Type Severity Reaction Status Date / Time budesonide Allergy Severe Dyspnea, Verified 09/08/21 10:46 irritability, swelling sucralfate Allergy Intermediate Dyspnea Verified 09/08/21 10:46 adhesive Allergy Mild Rash Verified 09/08/21 10:46 cefadroxil AdvReac Intermediate Gastrointestinal Verified 09/08/21 10:46 Upset escitalopram [From Lexapro] AdvReac Intermediate nausea Verified 09/08/21 10:46 tramadol AdvReac Intermediate Syncopal Verified 09/08/21 10:46 episode diclofenac AdvReac Mild Headache Verified 09/08/21 10:46 oxycodone AdvReac Mild Hallucinati Verified 09/08/21 10:46 ons Penicillins AdvReac Mild Gastrointestinal Verified 09/08/21 10:46 Upset Consultations [facility] Gastroenterology General Surgery Nutrition Ordered Studies Abdomen/Pelvis CT 09/08/21 21:[address] WITHOUT CONTRAST CT DOSE: 266.49 mGy.cm HISTORY: Acute severe mid abdominal pain status post placement of a feeding tube. severe mid abd pain s/p feeding tube done today TECHNIQUE: Multiaxial CT images of the abdomen and pelvis were performed without contrast. A dose lowering technique was utilized adhering to the principles of ALARA. COMPARISON STUDY: PET CT 03/28/2016 FINDINGS: Coronary artery calcifications. The imaged inferior cardiac chambers are unremarkable. Trace pericardial effusion. Clear lung bases. Large amount of pneumoperitoneum is noted with a gastrostomy tube in place. The balloon is present within the gastric body. Subcutaneous emphysema and edema is noted within the subcutaneous tissues adjacent to the catheter, expected postprocedural changes. No definite gastric, large or small bowel injury identified. The unenhanced spleen, pancreas and adrenal glands are unremarkable. Cholelithiasis without CT evidence of acute cholecystitis. Unremarkable liver. The kidneys are within normal limits. No hydronephrosis. Partial distention of the urinary bladder. Vaginal pessary. 3.3 x 3.1 cm cystic lesion of the right adnexum has increased in size from prior where it measured 2.2 cm. No abdominal aortic aneurysm. No adenopathy. Fluid-filled distal esophagus with tiny hiatal hernia. No bowel obstruction. Moderate fecal retention. The appendix is not definitively seen. Trace abdominal pelvic ascites. Unremarkable soft tissues. No acute fracture. Degenerative changes of the spine, pelvis and hips. IMPRESSION: 1. Status post placement of a gastrostomy tube which appears to be in satisfactory positioning with the inflated balloon within the gastric body. There is a large amount of pneumoperitoneum with trace abdominal pelvic ascites. No definite gastric or bowel wall injury definitively seen. These may be on a postprocedural basis. 2. No bowel obstruction. 3. Colonic diverticulosis. 4. Moderate fecal retention. 5. Additional findings as above. ACT 112: Negative or not required by law. The above report was generated using voice recognition software. It may contain grammatical, syntax or spelling errors. Electronically signed by: Souleymane Vasquez M.D. 09/08/2021 10:31 PM Abdomen/Pelvis CT 09/08/21 23:03 CT SCAN OF THE ABDOMEN AND PELVIS WITH IV CONTRAST CLINICAL HISTORY: Generalized abdominal pain. Free air. COMPARISON STUDY: Abdominal CT dated 09/08/2021. PET/CT dated 03/28/2016. TECHNIQUE: Following the IV administration of 92 cc of Optiray 320, CT scan of the abdomen and pelvis is performed from the lung bases to the proximal femora. Images are reviewed in the axial, sagittal, and coronal planes. IV contrast was administered without complication. A proximally 30 cc of a contrast was injected into the gastrostomy tube. A dose lowering technique was utilized adhering to the principles of ALARA. The examination is degraded by streak artifact from the arms which could not be elevated above the abdomen. CT DOSE: 393.65 mGy.cm FINDINGS: Lung bases: The heart is normal in size and without pericardial effusion. There are coronary artery calcifications. The lung bases are clear noting dependent atelectasis. Liver: The contrast-enhanced liver is normal in size, contour, and attenuation. There is no intrahepatic biliary ductal dilatation. The hepatic veins and portal veins are patent. Gallbladder: There are calcified gallstones with no CT evidence of acute cholecystitis. Spleen: Normal in size and attenuation. Pancreas: Unremarkable. Adrenal glands: Unremarkable. Kidneys: The contrast enhanced kidneys are normal in size and without hydronephrosis. The kidneys enhance symmetrically. Abdominal vasculature: The abdominal aorta is normal in course and caliber. Stomach and bowel: A percutaneous gastrostomy tube is in place. There is no contrast seen in the stomach, and no extraluminal contrast is identified. There is likely dilute contrast within the proximal small bowel loops. There is no bowel obstruction. Moderate fecal retention is seen throughout the colon. The appendix is normal as visualized. Peritoneum: There is a small volume of free fluid in the paracolic gutters and pelvis. A large amount of intraperitoneal free air is seen, greatest below the diaphragm. Lymphadenopathy: None. Pelvic viscera: The bladder and uterus are normal as visualized. A vaginal pessary is in place. A 4 cm simple cystic structure in the right adnexa on image #350 is unchanged. This has only modestly increased in size dating back to 2016 PET examination. Skeletal structures: The skeletal structures are osteopenic. There is mild lumbosacral spondylosis. No lytic or blastic lesions are seen. Soft tissues: There is soft tissue gas identified within the subcutaneous soft tissues at the gastrostomy site. IMPRESSION: 1. Again seen is a large amount of intraperitoneal free air in the upper abdomen, as well as a small amount of free fluid in the paracolic gutters and pelvis. The gastrostomy tube appears to be appropriately positioned, and this may represent expected postoperative change. Leak at the gastrostomy tube site i s considered less likely as there is no extraluminal enteric contrast. Perforated viscus would be impossible exclude and clinical correlation will be essential. 2. No enteric contrast is seen in the stomach. There is likely dilute enteric contrast in the proximal small bowel loops. 3. Rectosigmoid fecal retention and moderate constipation. 4. A 4 cm simple cystic lesion in the right adnexa is likely related to the right ovary. This has modestly increased in size dating back to 2016. 5. Cholelithiasis. 6. Additional findings as above. ACT 112: Negative or not required by law. Electronically signed by: Saul Kemp M.D. 09/09/2021 7:13 AM KUB X-Ray 09/09/21 07:14 KUB CLINICAL HISTORY: Pneumoperitoneum. Recent gastrostomy tube placement. FINDINGS: 2 AP supine abdominal radiographs are correlated with abdominal CT scans dated 09/08/2021. A gastrostomy tube projects over the left upper quadrant. There is no bowel obstruction. Fecal retention is seen throughout the colon. Intraperitoneal free air is again seen below the diaphragm. Excreted IV contrast is present in the bladder. There are pelvic phleboliths. The skeletal structures are osteopenic and appear intact. IMPRESSION: 1. No bowel obstruction. 2. Intraperitoneal free air is again seen in the upper abdomen. Electronically signed by: Saul Kemp M.D. 09/09/2021 9:[address] 09/09/21 12:00 CT SCAN OF THE ABDOMEN WITHOUT IV CONTRAST CLINICAL HISTORY: Generalized abdominal pain. Free air. COMPARISON STUDY: Abdominal CT scans dated 09/08/2021. PET/CT dated 03/28/2016. TECHNIQUE: Unenhanced CT scan of the abdomen is performed from the lung bases to the pelvic inlet. Images are reviewed in the axial, sagittal, and coronal planes. IV contrast was administered without complication. Approximately 100 cc of enteric contrast was injected into the gastrostomy tube. A dose lowering technique was utilized adhering to the principles of ALARA. The examination is degraded by streak artifact from the arms which could not be elevated above the abdomen. CT DOSE: 175.27 mGy.cm FINDINGS: Lung bases: The heart is normal in size and without pericardial effusion. There are coronary artery calcifications. There are small pleural effusions, left larger than right with bibasilar atelectasis. These are new from previous. Liver: The unenhanced liver is normal in size, contour, and attenuation. There is no intrahepatic biliary ductal dilatation. Gallbladder: The gallbladder is distended and contains calcified gallstones. There is no CT evidence of acute cholecystitis. Spleen: Normal in size and attenuation. Pancreas: Unremarkable. Adrenal glands: Unremarkable. Kidneys: The unenhanced kidneys are normal in size and without hydronephrosis. Excreted IV contrast is seen within the renal collecting systems and ureters. This degrades assessment for renal calculi. Abdominal vasculature: The abdominal aorta is normal in course and caliber. Stomach and bowel: A percutaneous gastrostomy tube is in place. Enteric contrast is present within the stomach and proximal duodenum. No extraluminal contrast is identified. Imaged portions of the small bowel and colon show no evidence of obstruction. Moderate fecal retention is seen throughout the imaged colon. Peritoneum: There is a small volume of perihepatic and perisplenic ascites, as well as free fluid in the paracolic gutters. A large amount of intraperitoneal free air is seen, greatest below the diaphragm. Lymphadenopathy: None. Skeletal structures: The skeletal structures are osteopenic. There is mild lumbosacral spondylosis. No lytic or blastic lesions are seen. Soft tissues: There is soft tissue gas identified within the subcutaneous soft tissues at the gastrostomy site. IMPRESSION: 1. Again seen is a large amount of intraperitoneal free air in the upper abdomen, as well as a small amount of free fluid in the paracolic gutters. The gastrostomy tube appears to be appropriately positioned, and this likely represents expected postoperative change. There is no evidence of leakage at the gastrostomy site, as no extraluminal contrast is seen. Given the presence of free air, a perforated viscus would be impossible exclude and clinical correlation will be essential. 2. Moderate constipation. 3. Cholelithiasis. 4. Small pleural effusions are new from previous. 5. A small amount of perihepatic and perisplenic ascites has modestly increased from previous. 6. Additional findings as above. ACT 112: Negative or not required by law.' Electronically signed by: Saul Kemp M.D. 09/09/2021 2:13 PM KUB X-Ray 09/11/21 09:38 KUB CLINICAL HISTORY: assess free air COMPARISON STUDY: CT of the abdomen and pelvis and KUB September 09, 2021. FINDINGS: Gastrostomy tube is in place. Note is made of contrast within the colon and rectum. Although suboptimally assessed on this supine exam, there is lucency within the abdomen which likely reflects pneumoperitoneum. In addition, loops of colon are likely outlined by extraluminal gas. Smaller foci of extraluminal gas are present. No evidence for a bowel obstruction. IMPRESSION: Findings suggestive of persistent pneumoperitoneum although suboptimally assessed on supine radiographs. If indicated, upright abdominal or left lateral decubitus radiographs of the abdomen could be obtained. ACT 112: Negative or not required by law. Electronically signed by: Oj Michaels M.D. 09/11/2021 12:24 PM Abdomen X-Ray 09/16/21 17:21 XR abdomen min 2V CLINICAL HISTORY: recent PEG placement; LUQ pain TECHNIQUE: Upright and supine views of the abdomen was obtained. Comparison: Comparison is made to chest one view 09/11/2021 FINDINGS: Gastrostomy tube is seen. On the frontal radiograph, pneumoperitoneum is noted under the bilateral hemidiaphragms. The bowel gas pattern is nonobstructive. A moderate amount of stool is noted within the large bowel. IMPRESSION: Pneumoperitoneum, correlation with procedural history is recommended. No evidence of obstruction. ACT 112: Negative or not required by law. Electronically signed by: Armand Mclain M.D. 09/16/2021 7:09 PM Hospital Course (1) Abdominal pain, acute: Likely combination of post-PEG procedural pain, pneumoperitoneum (often seen in setting of PEG placement), ?constipation with spasm, etc. Was seen by general surgery and gastroenterology. General surgery recommended conservative treatment - pain control, supportive care, antibiotics, and time. [facility] also advised conservative treatment. The patient's pain gradually improved during her stay, and her tube feedings were resumed and advanced as tolerated. The patient reported loose stools - c diff testing was negative. Abdominal x-rays later in her stay showed ongoing resolution of the pneumoperitoneum but ongoing significant fecal loading. Thus, her loose stools may have been "overflow" stooling from her significant constipation. At discharge she was advised to use miralax daily. A small amount of pain medication was also prescribed at discharge. (2) Pneumoperitoneum: 2nd to #3 below. improved clinically and radiographically during the stay. Patient had a soft, benign abdomen on day of discharge. Both general surgery and gastroenterology followed the patient during the visit, and they advised conservative treatment. Received prophylactic IV antibiotics during the hospital stay, and at discharge she will complete 2 more days of augmentin via PEG. (3) On tube feeding diet: Tube feeding regimen: 5 times a day at ~7am, 11am, 3pm, 7pm, 11pm Fibersource -- 240cc each feeding, with 50cc of water flush before and after the feeding Patient was advised to have a repeat BMP and magnesium 1 week post-discharge to ensure stable electrolytes. (4) S/P percutaneous endoscopic gastrostomy (PEG) tube placement: 09/08/21 -- by [facility] GI. see #1 above. 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 s/p PEG placement 09/08/21 as above. 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 she remains on prednisone 50mg/day and has rheumatology f/u in September. her JENNIE was positive at a high titer and, if TA is not present, may have some other autoimmune disease. cont prednisone via PEG. (8) Hypothyroidism: TSH 06/2021 wnl cont synthroid (9) Gallstones: It was not felt that the gallstones were causing symptoms. Pain was primarily in the LUQ, not the RUQ. CT abdomen/pelvis did not suggest acute cholecystitis. Patient is aware of the gallstones. (10) Hypokalemia: repleted via PEG potassium liquid supplementation x 3 days was given for use after discharge (11) Adnexal cyst: Right. Seen incidentally on CT abd/pelvis. Was present on past CTs per radiology. Recommend follow-up with gynecology for this. Total Time Total Time Spent Total Time Spent (In Minutes): 50 Discharge Plan Discharge Items Patient Disposition: Home - Home Health Services Reason For Visit: Abdominal Pain Discharge Diagnosis: 1. abdominal pain - likely multifactorial including post-procedural pain, constipation/intestinal spasm, other factors -- improving 2. recent PEG tube insertion by [facility] GI 3. 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 - currently on prednisone - follow-up with neurology & rheumatology Activity: As commented below Activity Comment: gradually increase your activities over the next week Bathing Comment: Ok to shower at this time but no tub baths yet; keep PEG clean/dry/covered Sexual Activity: Wait until after follow-up appointment Exercise/Sports: Wait until after follow-up appointment Driving/Machine Use: Resume 1 day after discharge Non-emergency contact: Primary Care Provider, Specialist and Game Agent Call non-emergency contact if: you have any medication questions, your symptoms worsen, your pain is not controlled, your pain is worsening, your pain is unusual for you and you have a fever Follow-up/Referrals: Elizabeth Breaux CRNP [Nurse Practitioner] - 09/28/21 11:00 am (see Ms Breaux or Dr Barber Gonzalez within 1-2 weeks for your PEG tube ) Maday Pride MD [Physician] - (see Ms Pagan within a week; we will try to arrange this for you) Diet: Nothing by Mouth and Other - See Diet Comment Diet Comment: Fibersource Tube Feeds: 240cc FIVE times/day (~7am, 11am, 3pm, 7pm, 11pm) Ambulatory Orders: Basic Metabolic Panel (Routine) Timeframe: 20210922 Location: Determined by Patient Ordered By: Gildardo Palacios Magnesium (Routine) Timeframe: [id number] Location: Determined by Patient Ordered By: Gildardo Palacios Add Attending Provider Instructions: Mrs Alonzo, You were hospitalized for severe abdominal pain after insertion of your PEG feeding tube. You were seen by both general surgery and [facility] Gastroenter[facility]. Fortunately nothing surgical was needed; both the surgeons and GI providers recommended antibiotics, treatment of your pain, and time to heal. Your pain gradually improved, and we ultimately were able to resume your tube feedings. At this time you are tolerating the Fibersource tube feeds 4 times a day with water flushes before and after each feeding. You received education/assistance from the nursing staff on how to operate the PEG tube and how to administer your feedings & medications. You are doing a great job with your PEG tube! On 09/16 x-rays of your abdomen continue to show a fair amount of stool, especially in the left colon. Previous CAT scans and x-rays showed similar amounts of stool. This may be contributing to some of your intermittent pain. Stool for c.diff (a bacterial infection of the colon) was negative. Recommendations - 1. Currently you are receiving your tube feedings 4 times a day at ~7am, 11am, 3pm, and 7pm. Your regimen is - Fibersource -- 240cc (ml) each feeding, with 50cc (ml) of water flush before the feeding and 50cc after the feeding. The spearer has suggested that to meet your caloric goals you will ultimately need to increase the feeding schedule to 5 times a day (~7am, 11am, 3pm, 7pm, and 11pm). You can build up to the 5 times a day feeding over the next few days as tolerated. 2. For constipation/bowel maintenance - take miralax. Mix 1 capful (if you buy it in a bottle) or 1 packet of miralax in 8 ounces of water or juice (avoid mixing with your Fibersource). I would split the dose into two 4-ounce partitions and give yourself 4 ounces in the morning and 4 ounces in the afternoon or evening, whatever you prefer. Aim for 1-2 soft bowel movements daily or every other day. 3. For pain - morphine liquid every 4 hours as needed. The morphine may make you sleepy. It can also contribute to constipation. 4. Take the amoxicillin antibiotic for 2 more days then discontinue. Take your first dose upon arrival home. 5. For stomach protection from the prednisone - * lansoprazole 30mg once daily at bedtime via PEG * the famotidine (pepcid) 40mg once daily can be used daily or as needed, whatever you prefer; the lansoprazole is a stronger acid implementation specialist payroll 6. Take potassium liquid x 3 days only, start 09/18/21. 7. Blood draw - recommend blood work on Saturday of this week to ensure your electrolytes are doing well on the tube feedings. The blood work can be drawn at any [facility] lab or the main [facility] lab. Ideally you have this blood work on Saturday morning. 8. Follow-up - see separate section. In addition keep your appointments with neurology and rheumatology for the recent headaches & concern of temporal arteritis. Return to [facility] if - * you have any fever over 100 degrees * you have any concerns about your PEG feeding tube (see separate section below which provides additional details) * you have vomiting * any other concerns Carolyn Serranos and continue to feel better! It was our pleasure to care for you, Take good care, Dr Suzanne Guzman Supervisor Force Adjustment Provider Instructions: Call your gastrointestinal doctor if: * The skin around your PEG tube is red, hot, hurts to touch, or has greenish- yellow drainage * You have a fever over 100 degrees * The tube feels tight around your skin * The skin around your PEG tube breaks down * Skin grows over your tube * Your stoma (the opening in your skin) gets bigger * You have a lot of leaking around your tube * Your tube gets blocked * Your tube is cracked or breaks * Your tube comes out * You have nausea or vomiting * You cannot have a bowel movement * You have any other questions or concerns How do I take care of a PEG tube? It may take up to four weeks for the skin around the PEG tube to heal. Clean the skin around your PEG tube every one to threedays or if it is dirty with mild soap and water. Try to gently remove any drainage or crusting on the skin or tube. Then put a new bandage around the tube. * Do not use any ointments, powders, or sprays around the PEG tube. * Do not pull your PEG tube. It can move out of place or come out. * Close your PEG tube and tape it to your stomach when you are not using it. Can I take a bath or go swimming? Do not take a bath or immerse yourself in water unless your gastrointestinal doctor tells you it is ok to do so. The skin around your PEG tube is healing at this time. It is ok to shower at this point but keep the PEG tube site clean, covered, and dry during the shower. What if the PEG tube falls out? Donotpanic if your PEG tube ever falls out. Put a clean, dry towel over the opening to catch drainage and go to your doctor or emergency room to get another tube put in. The opening can close quickly, so get it put back in as soon as you can. Will the PEG tube leak? It can leak a small amount. Clean and dry the skin around the tube if it does leak so you do not get skin breakdown or sores. Keep gauze or absorbent pads on the PEG tube to keep the skin dry and protect your clothes. You may want to take extra pads and clothes with you when you leave your home. If you have large amounts of leaking please contact your gastrointestinal doctor as soon as possible. Pending Studies at Discharge: No Stand-Alone Forms: My [facility], Opioid Pain Management, Smoking Cessation Medications and DC Order Prescriptions: New morphine concentrate 100 mg/5 mL (20 mg/mL) Solution 5 mg feeding tube Q4H PRN (Reason: pain) Qty: 15 RF: 0 lansoprazole [Prevacid SoluTab] 30 mg Tablet,Disintegrat, Delay Rel 30 mg PEG HS Qty: 30 RF: 5 multivitamin with minerals Liquid 10 ml feeding tube DAILY Qty: 237 RF: 3 potassium chloride 20 mEq/15 mL liquid 20 meq feeding tube DAILY 3 Days Qty: 45 RF: 0 Continued triamcinolone acetonide [Nasacort] 55 mcg aerosol,spray 2 spray INTNAS QAM RF: 0 estradiol 0.01 % (0.1 mg/gram) cream 1 g PV 2XWK Qty: 42.5 RF: 3 aujvcuj-bohudk-ezsuoj oil 0.12-87-788 mg/g gel 1 g topical DAILY RF: 0 ofloxacin 0.3 % drops See Rx Instructions otic (ear) BID 10 Days Qty: 10 RF: 2 loteprednol etabonate [Lotemax] 0.5 % Drops,Suspension 1 drp OPHTHALMIC (EYE) QID RF: 0 Osteo Bi-Flex Triple Strength 750 mg-644 mg- 30 mg-1 mg tablet 1 tab PO QAM Qty: 0 RF: 0 Restasis 0.05 % dropperette 1 drp OPB BID RF: 0 Eye Vitamin Ointment 1 dose topical HS RF: 0 [place] Saline Nasal Neti Rinse Packet With Rinse Device 40 ea .Route BID RF: 0 Changed trazodone 50 mg tablet 50 mg feeding tube HS Qty: 0 RF: 0 atorvastatin [Lipitor] 10 mg Tablet 10 mg feeding tube HS Qty: 0 RF: 0 lorazepam 0.5 mg Tablet 0.5 mg feeding tube HS PRN (Reason: Sleep) Qty: 0 RF: 0 desloratadine [Clarinex] 5 mg tablet 5 mg feeding tube QAM Qty: 90 RF: 3 prednisone 50 mg Tablet 50 mg feeding tube QAM Qty: 0 RF: 0 cholecalciferol (vitamin D3) [Vitamin D3] 25 mcg (1,000 unit) Capsule 25 mcg feeding tube QAM Qty: 0 RF: 0 levothyroxine 50 mcg Capsule 50 mcg PO QAM Qty: 0 RF: 0 Discontinued mupirocin 2 % ointment 1 applic TOP BID Qty: 15 RF: 11 famotidine 40 mg tablet 40 mg PO QAM Qty: 30 RF: 6 multivitamin Capsule 1 cap PO QAM RF: 0 pantoprazole 40 mg Tablet,Delayed Release (Dr/Ec) 40 mg PO HS RF: 0 ascorbic acid (vitamin C) [Vitamin C] 250 mg Tablet 250 mg PO QAM RF: 0 No Action famotidine 40 mg/5 mL (8 mg/mL) suspension 40 mg feeding tube DAILY Qty: 150 RF: 2 prednisone 5 mg/mL concentrate 50 mg feeding tube DAILY 30 Days Qty: 300 RF: 0 Discharge Orders: Discharge Order (Routine); Ordered 09/17/21 Ordered By: Gildardo Irby/Other Patient Handouts: Understanding PEG Tube Feeding Admission Data Admit Date/Time: 09/09/21 02:01 Attending Provider: Gildardo Palacios Admit Provider: Dede Kwong Primary Care Provider: Gerald Solis Other Providers: Jason Rodriguez ; Agus Otero ; Ariadna Corrales ; [facility] ; Marcio,Fax Other Interventions: Discharge Summary Assessment (RN) Last Done: 09/17/21 11:40 Coding Level of Care Code D/C DAY MANAGEMENT >30 MINS Diagnoses Abdominal pain, acute R10.9 Pneumoperitoneum K66.8 S/P percutaneous endoscopic gastrostomy (PEG) tube placement Z93.1 Dysphagia R13.10 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
--- NOTE | 2021-09-17 12:50 | Communication Note ---
Date of Service: September 17, 2021 gi brief note patient is doing well today, no events overnight, being discharge home today. she is comfortable using the peg tube and will follow up with [facility] as an outpatient Josesito Payne MD Gastroenterology
== END 2021-09-17 15:34 | disposition home health service (06) | DRG 392 ==
LOC: ED 21:16 → SUATTDRO 09-09 02:01 → EDINP 09-09 02:01 → 1E 09-09 08:02 → 3E 09-10 13:20

== ENCOUNTER 2024-02-20 20:49 | Inpatient (IN) ==
--- NOTE | 2024-02-20 21:25 | Emergency Department Note ---
Impression & Plan Hyponatremia, Acute osteomyelitis of facial bone, Weakness ED Provider Note CHIEF COMPLAINT: Low sodium HISTORY OF PRESENTING ILLNESS: This 73-year-old female patient presents to the emergency department with her for evaluation of low sodium level, weakness, and headache. The patient had outpatient blood work done today and her sodium was 130. The patient was just discharged 2 days ago for hypokalemia. Denies chest pain, SOB, abdominal pain, nausea, or vomiting. The headache is worse when she changes positions or tries to walk. Her legs feel very weak and achy. Denies fevers, cough, or URI symptoms. She was having some mild diarrhea, but has had normal BMs the past 3 days per patient. Denies any urinary symptoms. Has had tick bites in the past, but no known recent tick bites. No recent increased water or fluid intake through her PEG tube. No recent changes in her PEG tube feedings per patient. She was admitted 02/15/2024 to 02/18/2024 for microscopic colitis and hyponatremia. She also was having weakness of her legs at that time. She has a history of giant cell arteritis and has been on a tapering dose of prednisone as well. She also follows up with Dr. Blancas for dental/sinus issues that require frequent irrigation of a nonhealing fistulous tract. Upon review of her outpatient labs, her sodium had dropped from 138 on 02/18/24 to 130 today. She denied any significant increase in free water intake. She is notable for continued anemia as well with Hemoglobin 10.6, mildly improved from 10.0 on 02/18/24. REVIEW OF SYSTEMS: See HPI for pertinent positives and pertinent negatives. ALLERGIES: See below MEDICATIONS: See below PAST MEDICAL HISTORY: See below PHYSICAL EXAM: VITALS: Vitals are noted on the nurse's note and reviewed by myself. GENERAL: No acute distress, non-diaphoretic. SKIN: No concerning skin lesions noted. Capillary reflex less than 2 seconds. HEAD: No scalp tenderness. No step-offs felt. EARS: Bilateral external auditory canals clear. Left tympanic membrane with chronic tympanic membrane perforation. Right tympanic membrane with scarring present. No erythema or effusion of the bilateral tympanic membranes. No hemotympanum. No baires sign. No mastoid tenderness. EYES: Pupils equal round and reactive to light and accommodation. Conjunctivae without injection, sclerae without icterus. Extraocular movements intact without pain. NOSE: Patent, turbinates without inflammation or discharge. No sinus tenderness. No septal hematoma or bleeding. FACE: No facial bone tenderness. Full range of motion of the jaw without tenderness. No facial droop. MOUTH: Mucous membranes moist. Uvula midline. Airway patent. Tongue does not deviate. NECK: Supple without nuchal rigidity. Cervical spine is nontender. Full range of motion of the neck without tenderness and normal strength. HEART: Regular rate and rhythm without murmurs gallops or rubs. LUNGS: Clear to auscultation bilaterally without wheezes, rales or rhonchi. No retractions or accessory muscle use. No chest wall tenderness. ABDOMEN: Positive bowel sounds x 4. Normal tympanic percussion. Soft, nontender, without masses or organomegaly. No guarding or rebound tenderness. MUSCULOSKELETAL: No tenderness of the thoracic or lumbar spine or paraspinal muscles. Strength is equal, but decreased in the bilateral upper and lower extremities, but relatively normal given her age. The patient is tender to palpation of the bilateral calves and anterior lower legs. No obvious cording, erythema, or warmth noted. Peripheral pulses 2+ and equal in the bilateral upper and lower extremities. NEURO: Patient was alert and oriented to person place and time. Normal mental status exam. Normal sensation to light and sharp touch. No focal neurological deficits. DIFFERENTIAL DIAGNOSIS: Differential diagnosis includes benign positional vertigo, dehydration, hypovolemia, anemia, tumor, infection, hypoglycemia, hyponatremia, electrolyte abnormalities, SD, PE, pneumonia, other cardiac sources, intracerebral event, toxicologic, neurologic, tickborne illness, CVA, TIA, as well as other pathologies. ED COURSE AND MEDICAL DECISION MAKING: HISTORY FROM INDEPENDENT HISTORIAN: Additional history was obtained from patient's . MONITOR: Continuous environmental monitoring specialist: Order was placed for continuous environmental monitoring specialist. Patient was placed on the environmental monitoring specialist and continuous pulse ox. Patient was noted to be in normal sinus rhythm at an initial rate of 70 bpm per my interpretation. MEDICATIONS GIVEN: Zosyn 4.5 g IV. INTERPRETATION OF LABS: I interpreted the labs with full lab results as below in the lab section of this note. White blood cell count normal at 9.78. Hemoglobin stable at 10.5. Platelet count normal at 275. Coags were normal. Sodium low at 129, chloride 93, and glucose 116, but CMP otherwise without significant abnormalities. Magnesium normal. High-sensitivity troponin normal. CPK normal. Lipase normal. TSH normal. Urinalysis from earlier today without obvious evidence for UTI. Anaplasma and Babesia smears were negative with DNA PCR still pending. Lyme disease screen negative. INTERPRETATION OF IMAGING: Chest x-ray was interpreted by myself as negative for acute cardiopulmonary etiology. Radiology report still pending. Additional imaging studies were interpreted by myself and read by radiology as below. CT scan of the head without contrast as well as CTA of the head and neck with IV contrast showed no acute intracranial etiology, but does show findings concerning for osteomyelitis of the clivus. MRI of the facial bones with and without contrast was recommended. No obvious evidence for CVA or occlusions. Venous Doppler of the bilateral lower extremities were negative for DVT or other acute abnormalities. EXTERNAL RECORDS REVIEWED: I reviewed the patient's most recent admission as well as outpatient PCP visit and outpatient labs. CONSULTATIONS: call center team leader hospitalist MDM SUMMARY: I examined the patient. The patient was recently admitted for hyponatremia and weakness. The patient's sodium and weakness had improved until today when her symptoms became worse again. Outpatient labs showed that her sodium dropped down to 130 again and she was still anemic. The patient is still complaining of a headache and generalized weakness. An IV lock was placed and labs were drawn. Laboratory studies as above with a sodium of 129 and hemoglobin 10.5. Additional results as above. Chest x-ray as interpreted by myself was negative for acute abnormality. Radiology report still pending. CT scans of the head without contrast as well as CTA of the head and neck with IV contrast showed no acute intracranial abnormalities, but did show findings concerning for an osteomyelitis of the clivus. 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 Blancas. This may be the source. The patient was given IV Zosyn. The patient was independently evaluated by Dr. Coleman, who agrees with my assessment and treatment plan. I spoke with the on-call hospitalist who agreed to admit the patient for further evaluation and treatment. Please refer to their dictation for further details. The patient's care was transferred in stable condition. 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 Past Med/Surg History Problem List (Updated 02/21/24 @ 06:20 by ROSALVA KeenC) Weakness (Acute) Acute osteomyelitis of facial bone (Acute) Hyponatremia (Acute) Diarrhea (Acute) Acute hyponatremia (Acute) Presence of externally removable percutaneous endoscopic gastrostomy (PEG) tube Ambulatory dysfunction Giant cell arteritis On tube feeding diet Pt states she takes ALL meds via peg tube Diarrhea Bloating Ventilation tube blocked Mixed conductive and sensorineural hearing loss Leaking PEG tube Ear drum perforation left Microscopic colitis Wears hearing aid in both ears Resound [id number] disp 09/2017 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 Chronic otitis media Chronic sinusitis Chronic rhinitis Allergic rhinitis Chronic diarrhea Adnexal cyst Temporal arteritis High cholesterol Arthritis Current chronic use of systemic steroids Intranasal synechiae Esophageal dysphagia Uterine prolapse Rectocele Prolapse of vaginal sellers Papilloma of nose Mixed conductive and sensorineural hearing loss of both ears Laryngopharyngeal reflux Hearing loss Eustachian tube dysfunction Cyst of ovary, right Medical History Dry eye Acid reflux Osteopenia Hypothyroidism Insomnia Gallstones Positive JENNIE (antinuclear antibody) Pneumoperitoneum Anemia Anxiety Vaginal pessary present Dysphagia Sensorineural hearing loss (SNHL) of both ears Hiatal hernia Hyperlipidemia Primary squamous cell carcinoma of ethmoidal sinus Surgical History History of myringotomy S/P percutaneous endoscopic gastrostomy (PEG) tube placement S/P percutaneous endoscopic gastrostomy (PEG) tube placement History of temporal artery biopsy History of foot surgery History of anesthesia reaction History of breast biopsy History of dilatation and curettage History of surgical removal of ganglion cyst History of tonsillectomy and adenoidectomy History of placement of ear tubes History of colonoscopy History of esophagogastroduodenoscopy (EGD) History of cataract surgery Hx of eye surgery Hx of lymph node excision History of endoscopic sinus surgery Family History Mother Family hx of colon cancer Colorectal cancer Cancer Father Diabetes Acute myocardial infarction Heart disease Myocardial infarction Family/Other Breast cancer Grandmother (Paternal) Breast cancer Grandmother (Maternal) Diabetes Other No family history of adverse response to anesthesia Denies family history of Ovarian cancer Prostate cancer Social History (Reviewed 02/20/24 @ 15:37 by GRISEL García Smoking Status: Never smoker Second Hand Exposure: Yes (dad smoked); Do You Dip or Chew Tobacco: No; Hx Alcohol Use: No Hx Substance Use: No Preferred Language: Thai Communication Ability: Effective Visual Impairment: No Limitations Hearing Ability: Use of Hearing Aid Wind Up Operator Required: No Beliefs That Will Affect Care: None marital status: Current Living Situation: Spouse current occupational status: retired 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[employer] How many Children do You have: 4 Feels Safe at Home: Yes Safety Concerns: Feels Safe At This Time Childhood Exposure to Second-Hand Smoke: Yes Diet: regular Diet Comment: has PEG tube feedings 4X a day, she gives her feedings to herself during the past year weight has: decreased > 10 lbs Dental Care, Regularly: Yes Physical Activity Frequency: Does not Exercise Physical Activity Frequency Comment: not currently, walks sometimes in the nicer weather Seatbelt Use: always Sunscreen Use: Yes Assistive Devices: Walker Allergies Allergies Allergy/AdvReac Type Severity Reaction Status Date / Time budesonide Allergy Severe Dyspnea, Verified 02/20/24 21:56 irritability, swelling sucralfate Allergy Severe Dyspnea Verified 02/20/24 21:56 adhesive Allergy Intermediate Rash Verified 02/20/24 21:56 amoxicillin [From Augmentin] AdvReac Intermediate Diarrhea Verified 02/20/24 21:56 cefadroxil AdvReac Intermediate Gastrointestinal Verified 02/20/24 21:56 Upset clavulanic acid AdvReac Intermediate Diarrhea Verified 02/20/24 21:56 [From Augmentin] diclofenac AdvReac Intermediate Headache Verified 02/20/24 21:56 oxycodone AdvReac Intermediate Hallucinati Verified 02/20/24 21:56 ons Penicillins AdvReac Intermediate Gastrointestinal Verified 02/20/24 21:56 Upset tramadol AdvReac Intermediate Syncopal Verified 02/20/24 21:56 episode escitalopram [From Lexapro] AdvReac Mild nausea Verified 02/20/24 21:56 Home Meds Home Medications Medication Instructions Recorded Confirmed triamcinolone acetonide 55 mcg 2 spray intranasal QAM 05/10/21 02/20/24 nasal spray aerosol (Nasacort) Autologous 20 % Solution 1 dose OPB 6XD Dry Eyes 11/26/23 02/20/24 [id number]/Laxasperse Cap 1 dose HS 11/26/23 02/20/24 azelastine 137 mcg (0.1 %) nasal 2 spray intranasal BID 11/26/23 02/20/24 spray aerosol lactose-reduced food with fiber 1 ea feeding tube DAILY 11/26/23 02/20/24 0.06 gram-1.5 kcal/mL oral liquid (Jevity 1.5 Driss) mupirocin 2 % topical ointment 1 applic topical BID PRN nasal 11/26/23 02/20/24 dryness or bleeding oxyquinoline 0.025 %-sodium lauryl 1 ea vaginal QPM PRN Other 11/26/23 02/20/24 sulfate 0.01 % vaginal gel Probiotic 1 cap PO BID 01/08/24 02/20/24 cholecalciferol (vitamin D3) 25 12.5 mcg feeding tube QAM 01/08/24 02/20/24 mcg (1,000 unit) capsule (Vitamin D3) desloratadine 5 mg tablet 5 mg PO DAILY 01/08/24 02/20/24 (Clarinex) [id number]-[id number] oil 0.12 5 g topical QPM 01/08/24 02/20/24 mg-87 mg-788 mg/g topical gel varenicline 0.03 mg/spray nasal 1 spray intranasal BID 01/08/24 02/20/24 spray (Tyrvaya) ciprofloxacin (mixture) 1 cap intranasal UD 02/15/24 02/20/24 ipratropium bromide 21 mcg (0.03 2 spray intranasal BID PRN Other 02/15/24 02/20/24 %) nasal spray banana [id number]-MFF-qfomt 5 gram-45 60 ml PEG BID 02/20/24 02/20/24 kcal/60 mL tube feed liquid packet (Banatrol TF) cetirizine 10 mg capsule (Zyrtec) 10 mg PO DAILY 02/20/24 02/20/24 Previous Rx's Medication Instructions Recorded estradiol 0.01% (0.1 mg/gram) 1 g vaginal 2XWK #42.5 grams 06/27/23 vaginal cream famotidine 40 mg/5 mL (8 mg/mL) 40 mg (5 mL) feeding tube BID #300 11/12/23 oral suspension mL atorvastatin 10 mg tablet (Lipitor) 10 mg feeding tube HS #90 tabs 01/31/24 levothyroxine 50 mcg capsule 50 mcg PO QAM #90 caps 01/31/24 trazodone 50 mg tablet 50 mg feeding tube HS #90 tabs 01/31/24 Results & Data (ED) Vital Signs Vital Signs - 24 hr 02/20/24 20:53 02/20/24 21:08 02/20/24 21:08 Temperature 36.1 C L Temperature Source Temporal Artery Scan Pulse Rate 76 78 78 Pulse Rate [Finger] Pulse Rate from SpO2 Sensor 79 Pulse Rhythm Regular Pulse Strength Normal Respiratory Rate 20 16 Respiratory Effort / Characteristics Non-Labored Spontaneous Respiratory Depth Normal Respiratory Pattern Blood Pressure 116/78 Blood Pressure [Right Arm] Blood Pressure Mean 90 Blood Pressure Mean [Right Arm] Blood Pressure Position Sitting Pulse Oximetry 98 98 Oxygen Delivery Method Room Air Sepsis Recent Fever Within 48 Hours No Sepsis New/Unexplained Change in Mental Status N/A Sepsis Action Taken by Nursing No Action Required 02/20/24 21:10 02/20/24 21:20 02/20/24 21:30 Temperature Temperature Source Pulse Rate 76 80 76 Pulse Rate [Finger] Pulse Rate from SpO2 Sensor 76 80 77 Pulse Rhythm Pulse Strength Respiratory Rate 12 22 17 Respiratory Effort / Characteristics Respiratory Depth Respiratory Pattern Blood Pressure Blood Pressure [Right Arm] Blood Pressure Mean Blood Pressure Mean [Right Arm] Blood Pressure Position Pulse Oximetry 98 96 98 Oxygen Delivery Method Sepsis Recent Fever Within 48 Hours Sepsis New/Unexplained Change in Mental Status Sepsis Action Taken by Nursing 02/20/24 21:30 02/20/24 21:40 02/20/24 21:50 Temperature Temperature Source Pulse Rate 78 76 75 Pulse Rate [Finger] Pulse Rate from SpO2 Sensor 76 76 Pulse Rhythm Pulse Strength Respiratory Rate 17 23 Respiratory Effort / Characteristics Respiratory Depth Respiratory Pattern Blood Pressure 113/71 Blood Pressure [Right Arm] Blood Pressure Mean 90 Blood Pressure Mean [Right Arm] Blood Pressure Position Pulse Oximetry 95 98 Oxygen Delivery Method Sepsis Recent Fever Within 48 Hours Sepsis New/Unexplained Change in Mental Status Sepsis Action Taken by Nursing 02/20/24 21:55 02/20/24 22:00 02/20/24 22:00 Temperature Temperature Source Pulse Rate 77 Pulse Rate [Finger] Pulse Rate from SpO2 Sensor 76 Pulse Rhythm Pulse Strength Respiratory Rate 15 Respiratory Effort / Characteristics Respiratory Depth Respiratory Pattern Blood Pressure 113/68 Blood Pressure [Right Arm] Blood Pressure Mean 89 Blood Pressure Mean [Right Arm] Blood Pressure Position Pulse Oximetry 95 Oxygen Delivery Method Room Air Sepsis Recent Fever Within 48 Hours Sepsis New/Unexplained Change in Mental Status Sepsis Action Taken by Nursing 02/20/24 22:10 02/20/24 22:20 02/20/24 22:30 Temperature Temperature Source Pulse Rate 84 71 Pulse Rate [Finger] Pulse Rate from SpO2 Sensor 78 75 71 Pulse Rhythm Pulse Strength Respiratory Rate 21 16 18 Respiratory Effort / Characteristics Respiratory Depth Respiratory Pattern Blood Pressure Blood Pressure [Right Arm] Blood Pressure Mean Blood Pressure Mean [Right Arm] Blood Pressure Position Pulse Oximetry 98 97 95 Oxygen Delivery Method Sepsis Recent Fever Within 48 Hours Sepsis New/Unexplained Change in Mental Status Sepsis Action Taken by Nursing 02/20/24 22:40 02/20/24 22:50 02/20/24 23:00 Temperature Temperature Source Pulse Rate 71 Pulse Rate [Finger] Pulse Rate from SpO2 Sensor 71 Pulse Rhythm Pulse Strength Respiratory Rate 21 Respiratory Effort / Characteristics Respiratory Depth Respiratory Pattern Blood Pressure 101/74 Blood Pressure [Right Arm] Blood Pressure Mean 83 Blood Pressure Mean [Right Arm] Blood Pressure Position Pulse Oximetry 96 Oxygen Delivery Method Room Air Sepsis Recent Fever Within 48 Hours Sepsis New/Unexplained Change in Mental Status Sepsis Action Taken by Nursing 02/20/24 23:21 02/21/24 00:30 02/21/24 01:14 Temperature Temperature Source Pulse Rate 75 69 Pulse Rate [Finger] 76 Pulse Rate from SpO2 Sensor Pulse Rhythm Pulse Strength Respiratory Rate 20 Respiratory Effort / Characteristics Non-Labored Spontaneous Respiratory Depth Normal Respiratory Pattern Regular Blood Pressure 107/71 Blood Pressure [Right Arm] 131/76 Blood Pressure Mean 83 Blood Pressure Mean [Right Arm] 94 Blood Pressure Position Pulse Oximetry 96 Oxygen Delivery Method Room Air Sepsis Recent Fever Within 48 Hours Sepsis New/Unexplained Change in Mental Status Sepsis Action Taken by Nursing 02/21/24 02:00 Temperature Temperature Source Pulse Rate 72 Pulse Rate [Finger] Pulse Rate from SpO2 Sensor Pulse Rhythm Pulse Strength Respiratory Rate 10 L Respiratory Effort / Characteristics Respiratory Depth Respiratory Pattern Blood Pressure 101/67 Blood Pressure [Right Arm] Blood Pressure Mean 78 Blood Pressure Mean [Right Arm] Blood Pressure Position Pulse Oximetry Oxygen Delivery Method Sepsis Recent Fever Within 48 Hours Sepsis New/Unexplained Change in Mental Status Sepsis Action Taken by Nursing Laboratory Data 02/20/24 21:05 02/20/24 21:05 Lab Results 05/30/24 Range/Units 21:05 WBC 9.78 (4.8-10.8) K/ul RBC 3.40 L (4.20-5.40) M/uL Hgb 10.5 L (12.0-16.0) g/dl Hct 31.5 L (37.0-47.0) % MCV 92.6 (80.0-100.0) fL MCH 30.9 (25.0-34.0) pg MCHC 33.3 (32.0-36.0) g/dL RDW Std Deviation 48.1 H (36.4-46.3) fL RDW Coeff of Lucien 14.3 (11.5-14.5) % Plt Count 275 (130-400) K/uL MPV 8.6 L (9.4-12.4) fL Immature Gran % (Auto) 0.5 % Neut % (Auto) 76.2 % Lymph % (Auto) 14.4 % Union % (Auto) 8.2 % Eos % (Auto) 0.5 % Baso % (Auto) 0.2 % Neut # (Auto) 7.45 H (1.40-6.50) K/uL Lymph # (Auto) 1.41 (1.20-3.40) K/uL Union # (Auto) 0.80 H (0.11-0.59) K/uL Eos # (Auto) 0.05 (0.00-0.50) K/uL Baso # (Auto) 0.02 (0.00-0.20) K/uL Immature Gran # (Auto) 0.05 (0.01-0.20) K/uL PT 10.3 (9.0-12.0) Seconds INR 0.9 (0.9-1.1) APTT 28 (21-31) Seconds PTT Ratio 1.0 Sodium 129 L (136-145) mmol/L Potassium 3.9 (3.5-5.1) mmol/L Chloride 93 L (98-107) mmol/L Carbon Dioxide 31 (21-32) mmol/L Anion Gap 5 (3-11) BUN 20 (6-23) mg/dl Creatinine 0.58 L (0.6-1.2) mg/dl Est Cr Clr Drug Dosing 73.6 ml/min Est GFR ( Amer) 107.5 ml/min Est GFR (Non-Af Amer) 92.7 ml/min BUN/Creatinine Ratio 34.5 H (10-20) Glucose 116 H (70-99(Fasting)) mg/dl Calcium 8.7 (8.6-10.3) mg/dl Magnesium 1.9 (1.7-2.4) mg/dl Total Bilirubin 0.4 (0.2-1.0) mg/dl AST 15 (13-39) U/L ALT 14 (7-52) U/L Alkaline Phosphatase 87 (34-104) U/L Total Creatine Kinase 34 (26-192) U/L Troponin I High Sens 4.7 (0-14) pg/ml Total Protein 6.4 (6.0-8.3) gm/dl Albumin 3.5 (3.4-5.0) gm/dl Globulin 2.9 (2.5-4.0) gm/dl Albumin/Globulin Ratio 1.2 (0.9-2) Lipase 32 (11-82) U/L TSH 1.654 (0.300-4.500) uIu/ml Anaplasma Smear See Comment Babesia Smear See Comment Lyme Disease Screen Negative (Negative) Administered Medications Sodium Chloride (Nss) 1,000 mls @ 90 mls/hr IV .[id number] [facility] Stop: 02/22/24 00:40 Last Admin: 02/21/24 04:59 Dose: 90 mls/hr Documented By: MADHURI Discontinued Medications Gadobutrol (Gadobutrol 65ml Vial) 5.5 ml IV ONCE ONE Stop: 02/21/24 04:24 Last Admin: 02/21/24 04:24 Dose: 5.5 ml Documented By: KERRI Piperacillin Sod/Tazobactam Sod (Zosyn) 4.5 gm in 100 mls @ 200 mls/hr IV NOW ONE Stop: 02/21/24 01:59 Last Infusion: 02/21/24 02:15 Dose: Infused Documented By: Admin: 02/21/24 01:42 Dose: 200 mls/hr Documented By: PHIL Ioversol (Optiray 320 125ml) 125 ml IV ONCE ONE Stop: 02/20/24 23:13 Last Admin: 02/20/24 23:13 Dose: 119 ml Documented By: ALYX Imaging Data Radiologist's Impression: Head CT 02/20/24 21:38 CR Exam(s): CT HEAD Without Contrast EXAM: CT Head Without Intravenous Contrast CLINICAL HISTORY: Reason for exam: Headache, weakness. TECHNIQUE: Axial computed tomography images of the head/brain without intravenous contrast. CTDI is 31.85 mGy and DLP is 938.45 mGy-cm. Automated exposure control was utilized for the study. A dose lowering technique was utilized adhering to the principles of ALARA. COMPARISON: Comparison is made to prior brain MRI from June 07, [address] scan of the paranasal sinuses from May 10, 2017... FINDINGS: Brain: There is encephalomalacia and gliosis of the anterior inferior frontal lobes, likely the sequelae of remote prior trauma. No hemorrhage. No significant white matter disease. No edema. Ventricles: Mild ventriculomegaly. Bones/joints: There is heterogeneous appearance of the clivus with intraosseous air bubbles and large AP lucency through the bone.. Incomplete fusion of the posterior ring of C1. No acute fracture. Soft tissues: There is a large bowl of the adjacent to the soft tissues adjacent to the left foramen ovale. Sinuses: Chronic left maxillary, right ethmoid and sphenoid sinusitis. Left endoscopic sinus surgery. Mastoid air cells: Bilateral mastoid effusions with right middle ear effusion. IMPRESSION: No evidence of acute intracranial pathology. 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 Recommend MRI of the facial bones with and without contrast for further evaluation. Communications: Verify Receipt Electronically signed by: Nadya Steel MD 02/21/24 01:05 AM Head CTA 02/20/24 21:38 Exam(s): CTA HEAD With Contrast IV Amt: 119 ml optiray 320 EXAM: CT Angiography Head With Intravenous Contrast CLINICAL HISTORY: Reason for exam: Headache, weakness. TECHNIQUE: Axial computed tomographic angiography images of the head with intravenous contrast. CTDI is 31.85 mGy and DLP is 938.45 mGy-cm. Automated exposure control was utilized for the study. A dose lowering technique was utilized adhering to the principles of ALARA. MIP reconstructed images were created and reviewed. CONTRAST: Patient received 119 ml optiray 320 of IV contrast COMPARISON: Comparison made to prior CT angiography of the head from August 06, 2021. FINDINGS: The dural venous sinuses are patent. Right internal carotid artery: No acute findings. Intracranial segment is patent with no significant stenosis. No aneurysm. Right anterior cerebral artery: Unremarkable. No occlusion or significant stenosis. No aneurysm. Right middle cerebral artery: Unremarkable. No occlusion or significant stenosis. No aneurysm. Right posterior cerebral artery: Unremarkable. No occlusion or significant stenosis. No aneurysm. Right vertebral artery: Unremarkable as visualized. Left internal carotid artery: No acute findings. Intracranial segment is patent with no significant stenosis. No aneurysm. Left anterior cerebral artery: Unremarkable. No occlusion or significant stenosis. No aneurysm. Left middle cerebral artery: Unremarkable. No occlusion or significant stenosis. No aneurysm. Left posterior cerebral artery: Unremarkable. No occlusion or significant stenosis. No aneurysm. Left vertebral artery: Unremarkable as visualized. Basilar artery: Unremarkable. No occlusion or significant stenosis. No aneurysm. IMPRESSION: Negative CT angiogram of the head. Electronically signed by: Nadya Steel MD 02/21/24 00:51 AM Neck CTA 02/20/24 21:38 Exam(s): CTA NECK With Contrast IV Amt: 119 ml optiray 320 EXAM: CT Angiography Neck With Intravenous Contrast CLINICAL HISTORY: Reason for exam: Headache, weakness. TECHNIQUE: Routine carotid CT angiography protocol was performed with intravenous contrast. NASCET criteria using the distal ICAs for comparison were used for evaluation of stenoses. CTDI is 31.85 mGy and DLP is 938.45 mGy-cm. Automated exposure control was utilized for the study. A dose lowering technique was utilized adhering to the principles of ALARA. MIP reconstructed images were created and reviewed. CONTRAST: Patient received 119 ml optiray 320 of IV contrast COMPARISON: CT Cervical soft tissues from 04-24-2023. FINDINGS: VASCULATURE: Right common carotid artery: Unremarkable. No occlusion or significant stenosis. No dissection. Right internal carotid artery: Unremarkable. Extracranial segment is patent with no occlusion or significant stenosis. No dissection. Right external carotid artery: Unremarkable. No occlusion. Right vertebral artery: Unremarkable. No occlusion or significant stenosis. No dissection. Left common carotid artery: Unremarkable. No occlusion or significant stenosis. No dissection. Left internal carotid artery: Unremarkable. Extracranial segment is patent with no occlusion or significant stenosis. No dissection. Left external carotid artery: Unremarkable. No occlusion. Left vertebral artery: Unremarkable. No occlusion or significant stenosis. No dissection. NECK: Bones/joints: Findings concerning for osteomyelitis of the colitis. There is dehiscence of the inferior left maxilla. No acute fracture. Severe spinal canal stenosis at C6-7. Soft tissues: Prominent mediastinal lymph nodes. Lung apices: Clear. CAROTID STENOSIS REFERENCE USING NASCET CRITERIA: % ICA stenosis = (1 - narrowest ICA diameter/diameter of distal cervical ICA) x 100. Mild - <50% stenosis. Moderate - 50-69% stenosis. Severe - 70-94% stenosis. Near occlusion - 95-99% stenosis. Occluded - 100% stenosis. IMPRESSION: Negative CTA neck. 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 Electronically signed by: Nadya Steel MD 02/21/24 01:22 AM Venous Doppler Study 02/20/24 21:38 Exam(s): US VENOUS BILATERAL LOWER EXTREMITIES EXAM: US Duplex Bilateral Lower Extremities Veins CLINICAL HISTORY: Reason for exam: Bilateral leg pain, eval DVT. TECHNIQUE: Real-time duplex ultrasound scan of the bilateral lower extremity veins integrating B-mode two-dimensional vascular structure, Doppler spectral analysis, color flow Doppler imaging and compression. COMPARISON: No relevant prior studies available. FINDINGS: Right deep veins: Unremarkable. No DVT in the right common femoral, femoral, proximal deep femoral or popliteal veins. The veins demonstrate normal color flow, are normally compressible, with normal phasic flow and/or augmentation response. Right superficial veins: Unremarkable. No thrombus in the visualized right great saphenous vein. Left deep veins: Unremarkable. No DVT in the left common femoral, femoral, proximal deep femoral or popliteal veins. The veins demonstrate normal color flow, are normally compressible, with normal phasic flow and/or augmentation response. Left superficial veins: Unremarkable. No thrombus in the visualized left great saphenous vein. Soft tissues: No acute findings. No popliteal cyst. IMPRESSION: Normal bilateral lower extremity duplex venous ultrasound. Electronically signed by: Denny Beckwith MD 02/21/24 03:47 AM Discharge Plan Visit Data Chief Complaint: Abnormal Labs/Diagnostic Testing Stated Complaint: LOW SODIUM LEVEL, ABN LABS, DOC REF ED Provider: Damien Coleman ED Midlevel Provider: Chelsey Chisholm Discharge Problem: Hyponatremia, Acute osteomyelitis of facial bone, Weakness Patient Disposition: Admitted As Inpatient Condition: Good Discharge Instructions Interventions: ED Discharge Assessment Last Done: 02/21/24 03:39
[2024-02-20 21:54] LABS: Basophils # (auto) 0.02 K/uL (0.00-0.20); Basophils % (auto) 0.2 %; Eosinophils # (auto) 0.05 K/uL (0.00-0.50); Eosinophils % (auto) 0.5 %; Hematocrit (blood only) 31.5 % (37.0-47.0); Hemoglobin 10.5 g/dl (12.0-16.0); Immature Granulocytes # (auto) 0.05 K/uL (0.01-0.20); Immature Granulocytes % (auto) 0.5 %; Lymphocytes # (auto) 1.41 K/uL (1.20-3.40); Lymphocytes % (auto) 14.4 %; Mean Corpuscular Hemoglobin 30.9 pg (25.0-34.0); Mean Corpuscular Hgb Conc 33.3 g/dL (32.0-36.0); Mean Corpuscular Volume 92.6 fL (80.0-100.0); Mean Platelet Volume 8.6 fL (9.4-12.4); Monocytes % (auto) 8.2 %; Neutrophils # (auto) 7.45 K/uL (1.40-6.50); Neutrophils % (auto) 76.2 %; Platelet Count 275 K/uL (130-400); RDW Coefficient of Variation 14.3 % (11.5-14.5); RDW Standard Deviation 48.1 fL (36.4-46.3); White Blood Count 9.78 K/ul (4.8-10.8)
[2024-02-20 22:06] LABS: Albumin Globulin Ratio 1.2 (0.9-2); Albumin Level 3.5 gm/dl (3.4-5.0); BUN Creatinine Ratio 34.5 (10-20); Bilirubin,Total 0.4 mg/dl (0.2-1.0); Calcium 8.7 mg/dl (8.6-10.3); Creatinine Clr Calc Pharmacy 73.6 ml/min; Est GFR (African American) 107.5 ml/min; Est GFR (Non-African American) 92.7 ml/min; Globulin 2.9 gm/dl (2.5-4.0); Magnesium 1.9 mg/dl (1.7-2.4); Potassium 3.9 mmol/L (3.5-5.1); Total Protein 6.4 gm/dl (6.0-8.3)
[2024-02-20 22:13] LABS: Troponin I High Sensitivity 4.7 pg/ml (0-14)
[2024-02-20 22:22] LABS: Thyroid Stimulating Hormone 1.654 uIu/ml (0.300-4.500)
[2024-02-20 22:30] LABS: INR 0.9 (0.9-1.1); Partial Thromboplastin Time 28 Seconds (21-31); Prothrombin Time 10.3 Seconds (9.0-12.0)
[2024-02-20] MEDS: OPTIRAY 320 125ml IV ONE (23:13)
--- NOTE | 2024-02-21 00:52 | CT Scan Report ---
Exam(s): CTA HEAD With Contrast IV Amt: 119 ml optiray 320 EXAM: CT Angiography Head With Intravenous Contrast CLINICAL HISTORY: Reason for exam: Headache, weakness. TECHNIQUE: Axial computed tomographic angiography images of the head with intravenous contrast. CTDI is 31.85 mGy and DLP is 938.45 mGy-cm. Automated exposure control was utilized for the study. A dose lowering technique was utilized adhering to the principles of ALARA. MIP reconstructed images were created and reviewed. CONTRAST: Patient received 119 ml optiray 320 of IV contrast COMPARISON: Comparison made to prior CT angiography of the head from August 06, 2021. FINDINGS: The dural venous sinuses are patent. Right internal carotid artery: No acute findings. Intracranial segment is patent with no significant stenosis. No aneurysm. Right anterior cerebral artery: Unremarkable. No occlusion or significant stenosis. No aneurysm. Right middle cerebral artery: Unremarkable. No occlusion or significant stenosis. No aneurysm. Right posterior cerebral artery: Unremarkable. No occlusion or significant stenosis. No aneurysm. Right vertebral artery: Unremarkable as visualized. Left internal carotid artery: No acute findings. Intracranial segment is patent with no significant stenosis. No aneurysm. Left anterior cerebral artery: Unremarkable. No occlusion or significant stenosis. No aneurysm. Left middle cerebral artery: Unremarkable. No occlusion or significant stenosis. No aneurysm. Left posterior cerebral artery: Unremarkable. No occlusion or significant stenosis. No aneurysm. Left vertebral artery: Unremarkable as visualized. Basilar artery: Unremarkable. No occlusion or significant stenosis. No aneurysm. IMPRESSION: Negative CT angiogram of the head. Electronically signed by: Nadya Steel MD 02/21/24 00:51 AM
--- NOTE | 2024-02-21 01:06 | CT Scan Report ---
Exam(s): CT HEAD Without Contrast EXAM: CT Head Without Intravenous Contrast CLINICAL HISTORY: Reason for exam: Headache, weakness. TECHNIQUE: Axial computed tomography images of the head/brain without intravenous contrast. CTDI is 31.85 mGy and DLP is 938.45 mGy-cm. Automated exposure control was utilized for the study. A dose lowering technique was utilized adhering to the principles of ALARA. COMPARISON: Comparison is made to prior brain MRI from June 07, [address] scan of the paranasal sinuses from May 10, 2017... FINDINGS: Brain: There is encephalomalacia and gliosis of the anterior inferior frontal lobes, likely the sequelae of remote prior trauma. No hemorrhage. No significant white matter disease. No edema. Ventricles: Mild ventriculomegaly. Bones/joints: There is heterogeneous appearance of the clivus with intraosseous air bubbles and large AP lucency through the bone.. Incomplete fusion of the posterior ring of C1. No acute fracture. Soft tissues: There is a large bowl of the adjacent to the soft tissues adjacent to the left foramen ovale. Sinuses: Chronic left maxillary, right ethmoid and sphenoid sinusitis. Left endoscopic sinus surgery. Mastoid air cells: Bilateral mastoid effusions with right middle ear effusion. IMPRESSION: No evidence of acute intracranial pathology. 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 Recommend MRI of the facial bones with and without contrast for further evaluation. Communications: Verify Receipt Electronically signed by: Nadya Steel MD 02/21/24 01:05 AM
--- NOTE | 2024-02-21 01:23 | CT Scan Report ---
Exam(s): CTA NECK With Contrast IV Amt: 119 ml optiray 320 EXAM: CT Angiography Neck With Intravenous Contrast CLINICAL HISTORY: Reason for exam: Headache, weakness. TECHNIQUE: Routine carotid CT angiography protocol was performed with intravenous contrast. NASCET criteria using the distal ICAs for comparison were used for evaluation of stenoses. CTDI is 31.85 mGy and DLP is 938.45 mGy-cm. Automated exposure control was utilized for the study. A dose lowering technique was utilized adhering to the principles of ALARA. MIP reconstructed images were created and reviewed. CONTRAST: Patient received 119 ml optiray 320 of IV contrast COMPARISON: CT Cervical soft tissues from 04-24-2023. FINDINGS: VASCULATURE: Right common carotid artery: Unremarkable. No occlusion or significant stenosis. No dissection. Right internal carotid artery: Unremarkable. Extracranial segment is patent with no occlusion or significant stenosis. No dissection. Right external carotid artery: Unremarkable. No occlusion. Right vertebral artery: Unremarkable. No occlusion or significant stenosis. No dissection. Left common carotid artery: Unremarkable. No occlusion or significant stenosis. No dissection. Left internal carotid artery: Unremarkable. Extracranial segment is patent with no occlusion or significant stenosis. No dissection. Left external carotid artery: Unremarkable. No occlusion. Left vertebral artery: Unremarkable. No occlusion or significant stenosis. No dissection. NECK: Bones/joints: Findings concerning for osteomyelitis of the colitis. There is dehiscence of the inferior left maxilla. No acute fracture. Severe spinal canal stenosis at C6-7. Soft tissues: Prominent mediastinal lymph nodes. Lung apices: Clear. CAROTID STENOSIS REFERENCE USING NASCET CRITERIA: % ICA stenosis = (1 - narrowest ICA diameter/diameter of distal cervical ICA) x 100. Mild - <50% stenosis. Moderate - 50-69% stenosis. Severe - 70-94% stenosis. Near occlusion - 95-99% stenosis. Occluded - 100% stenosis. IMPRESSION: Negative CTA neck. 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 Electronically signed by: Nadya Steel MD 02/21/24 01:22 AM
[2024-02-21] MEDS: PIPERACILLIN/TAZOBACTAM 4.5 GM/100 ML BAG IV ONE (01:42)
--- NOTE | 2024-02-21 01:59 | History & Physical Report ---
Date of Service February 21, 2024 Assessment & Plan (1) Hyponatremia: (2) Acute osteomyelitis of facial bone: (3) Chronic sinusitis: (4) Chronic otitis media: (5) Intranasal synechiae: (6) Esophageal dysphagia: (7) High cholesterol: (8) Microscopic colitis: (9) On tube feeding diet: (10) Presence of externally removable percutaneous endoscopic gastrostomy (PEG) tube: Plan Tiff is a 73F w/ PMH of chronic hyponatremia (baseline 132-134), microscopic colitis w/ chronic diarrhea, chronic sinusitis/otitis media a/w intranasal senechia and fistula formation s/p radiation, reflux, HLD, and arthritis who presented for abnormal outpatient labs. Patient is being admitted for hyponatremia and osteomyelitis management. She is PEG tube dependent for feedings at baseline. Acute on Chronic Hyponatremia - Patient chronically hyponatremic to 132-134, now acutely 129 - Recent admission 02/13-02/17 for hyponatremia to 121, discharged at 138 - Mild symptoms: acute weakness of her legs starting Saturday - Laboratories 02/14 Osmolality 255 L (hypotonic hyponatremia) 02/14 Urine Osmolality 385 L 02/14 Urine Na Random 82 Hypovolemic on exam - Presentation concerning for renal losses +/- SIADH, likely multifactorial - mIVF ordered - Follow PEG tube saline flushes inpatient - potential contribution to Na level fluctuations - Consider addition of salt tablets - Potential fpc benefit from Tolvaptan 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 requiring frequent washouts and preventative Abx - Associated with radiation treatments 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 - CT Head concerning for osteomyelitis of the clivus and chronic sinusitis - IV Zosyn started in the ED, continue on admission - Nasal Ciprofloxacin, Gentamicin, and Dexamethasone rinses held - MRI Facial Bones w/ & w/o for further characterization Chronic Conditions: HLD: statin held Reflux: continue famotidine Hypothyroidism: continue levothyroxine Insomnia: continue trazodone Microscopic colitis: diarrhea resolved, stable FEN: NPO, all feeds through PEG Code status: Full Code DVT ppx: SCDs Isolation: None Dispo:Med/Surg w/ Tele History of Present Illness Primary Care Provider: Maday Pride MD Tiff is a 73F w/ PMH of chronic hyponatremia (baseline 132-134), microscopic colitis w/ chronic diarrhea, chronic sinusitis/otitis media a/w intranasal senechia and fistula formation s/p radiation, reflux, HLD, and arthritis who presented for abnormal outpatient labs. Patient is being admitted for hyponatremia and osteomyelitis management. She is PEG tube dependent for feedings at baseline. Patient was recently admitted 02/13-02/17 for hyponatremia. She was discharged home feeling well, but notes that Saturday she started experiencing increased weakness in her legs (similar to how she had presented before). 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 She notes that she presents monthly for washouts, but daily uses Ciprofloxacin and Gentamicin/Dexamethasone rinses as an infection prevention measure. In addition to leg weakness, patient notes that she has intermittent upper neck pain at the base of her skull and approximately 2 weeks ago had an episode of left sided facial swelling and redness, which self resolved. She does note that occasionally she experiences right sided ear pain. Patient denies fevers, chills, headaches, vision changes, nausea, emesis, abdominal pain, dysuria, frequency, or diarrhea. Patient notes that she does 6 fluid ounce flushes TID t hrough her PEG tube, but that on warmer days she adds an additional 8 ounce flush. She had two days that were >80 degrees and she added the additional flushes. ED: Zosyn Allergies Allergy/AdvReac Type Severity Reaction Status Date / Time budesonide Allergy Severe Dyspnea, Verified 02/20/24 21:56 irritability, swelling sucralfate Allergy Severe Dyspnea Verified 02/20/24 21:56 adhesive Allergy Intermediate Rash Verified 02/20/24 21:56 amoxicillin [From Augmentin] AdvReac Intermediate Diarrhea Verified 02/20/24 21:56 cefadroxil AdvReac Intermediate Gastrointestinal Verified 02/20/24 21:56 Upset clavulanic acid AdvReac Intermediate Diarrhea Verified 02/20/24 21:56 [From Augmentin] diclofenac AdvReac Intermediate Headache Verified 02/20/24 21:56 oxycodone AdvReac Intermediate Hallucinati Verified 02/20/24 21:56 ons Penicillins AdvReac Intermediate Gastrointestinal Verified 02/20/24 21:56 Upset tramadol AdvReac Intermediate Syncopal Verified 02/20/24 21:56 episode escitalopram [From Lexapro] AdvReac Mild nausea Verified 02/20/24 21:56 Home Medications Medication Instructions Recorded Confirmed Type triamcinolone acetonide 55 mcg 2 spray intranasal QAM 05/10/21 02/20/24 History nasal spray aerosol (Nasacort) estradiol 0.01% (0.1 mg/gram) 1 g vaginal 2XWK #42.5 grams 06/27/23 02/20/24 Rx vaginal cream famotidine 40 mg/5 mL (8 mg/mL) 40 mg (5 mL) feeding tube BID #300 11/12/23 02/20/24 Rx oral suspension mL Autologous 20 % Solution 1 dose OPB 6XD Dry Eyes 11/26/23 02/20/24 History Quka647iv/Dex2mg/Laxasperse Cap 1 dose HS 11/26/23 02/20/24 History azelastine 137 mcg (0.1 %) nasal 2 spray intranasal BID 11/26/23 02/20/24 History spray aerosol lactose-reduced food with fiber 1 ea feeding tube DAILY 11/26/23 02/20/24 History 0.06 gram-1.5 kcal/mL oral liquid (Jevity 1.5 Driss) mupirocin 2 % topical ointment 1 applic topical BID PRN nasal 11/26/23 02/20/24 History dryness or bleeding oxyquinoline 0.025 %-sodium lauryl 1 ea vaginal QPM PRN Other 11/26/23 02/20/24 History sulfate 0.01 % vaginal gel Probiotic 1 cap PO BID 01/08/24 02/20/24 History cholecalciferol (vitamin D3) 25 12.5 mcg feeding tube QAM 01/08/24 02/20/24 History mcg (1,000 unit) capsule (Vitamin D3) desloratadine 5 mg tablet 5 mg PO DAILY 01/08/24 02/20/24 History (Clarinex) npykmua-paxnbp-mrvrix oil 0.12 5 g topical QPM 01/08/24 02/20/24 History mg-87 mg-788 mg/g topical gel varenicline 0.03 mg/spray nasal 1 spray intranasal BID 01/08/24 02/20/24 History spray (Tyrvaya) atorvastatin 10 mg tablet (Lipitor) 10 mg feeding tube HS #90 tabs 01/31/24 02/20/24 Rx levothyroxine 50 mcg capsule 50 mcg PO QAM #90 caps 01/31/24 02/20/24 Rx trazodone 50 mg tablet 50 mg feeding tube HS #90 tabs 01/31/24 02/20/24 Rx ciprofloxacin (mixture) 1 cap intranasal UD 02/15/24 02/20/24 History ipratropium bromide 21 mcg (0.03 2 spray intranasal BID PRN Other 02/15/24 02/20/24 History %) nasal spray banana rqgpbm-UQZ-ucwci 5 gram-45 60 ml PEG BID 02/20/24 02/20/24 History kcal/60 mL tube feed liquid packet (Banatrol TF) cetirizine 10 mg capsule (Zyrtec) 10 mg PO DAILY 02/20/24 02/20/24 History Past Med/Surg History Problem List (Updated 02/21/24 @ 11:27 by Viviana Rodriguez MD) Cerebritis Weakness (Acute) Acute osteomyelitis of facial bone (Acute) Hyponatremia (Acute) Diarrhea (Acute) Acute hyponatremia (Acute) Presence of externally removable percutaneous endoscopic gastrostomy (PEG) tube Ambulatory dysfunction Giant cell arteritis On tube feeding diet Pt states she takes ALL meds via peg tube Diarrhea Bloating Ventilation tube blocked Mixed conductive and sensorineural hearing loss Leaking PEG tube Ear drum perforation left Microscopic colitis Wears hearing aid in both ears Resound [id number] disp 09/2017 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 Chronic otitis media Chronic sinusitis Chronic rhinitis Allergic rhinitis Chronic diarrhea Adnexal cyst Temporal arteritis High cholesterol Arthritis Current chronic use of systemic steroids Intranasal synechiae Esophageal dysphagia Uterine prolapse Rectocele Prolapse of vaginal sellers Papilloma of nose Mixed conductive and sensorineural hearing loss of both ears Laryngopharyngeal reflux Hearing loss Eustachian tube dysfunction Cyst of ovary, right Medical History Dry eye Acid reflux Osteopenia Hypothyroidism Insomnia Gallstones Positive JENNIE (antinuclear antibody) Pneumoperitoneum Anemia Anxiety Vaginal pessary present Dysphagia Sensorineural hearing loss (SNHL) of both ears Hiatal hernia Hyperlipidemia Primary squamous cell carcinoma of ethmoidal sinus Surgical History History of myringotomy S/P percutaneous endoscopic gastrostomy (PEG) tube placement S/P percutaneous endoscopic gastrostomy (PEG) tube placement History of temporal artery biopsy History of foot surgery History of anesthesia reaction History of breast biopsy History of dilatation and curettage History of surgical removal of ganglion cyst History of tonsillectomy and adenoidectomy History of placement of ear tubes History of colonoscopy History of esophagogastroduodenoscopy (EGD) History of cataract surgery Hx of eye surgery Hx of lymph node excision History of endoscopic sinus surgery Family History Mother Family hx of colon cancer Colorectal cancer Cancer Father Diabetes Acute myocardial infarction Heart disease Myocardial infarction Family/Other Breast cancer Grandmother (Paternal) Breast cancer Grandmother (Maternal) Diabetes Other No family history of adverse response to anesthesia Denies family history of Ovarian cancer Prostate cancer Social History Smoking Status: Never smoker Second Hand Exposure: Yes (dad smoked); Do You Dip or Chew Tobacco: No; Hx Alcohol Use: No Hx Substance Use: No Preferred Language: Liberian Communication Ability: Effective Visual Impairment: No Limitations Hearing Ability: Use of Hearing Aid Cheese Grader Required: No Beliefs That Will Affect Care: None marital status: Current Living Situation: Spouse current occupational status: retired 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[employer] [place] How many Children do You have: 4 Feels Safe at Home: Yes Childhood Exposure to Second-Hand Smoke: Yes Diet: regular Diet Comment: has PEG tube feedings 4X a day, she gives her feedings to herself during the past year weight has: decreased > 10 lbs Dental Care, Regularly: Yes Physical Activity Frequency: Does not Exercise Physical Activity Frequency Comment: not currently, walks sometimes in the nicer weather Seatbelt Use: always Sunscreen Use: Yes Assistive Devices: Walker Physical Exam Physical Exam: Gen: NAD, alert, interactive HEENT: Supple, no LAD, no thyromegaly, no JVD, dry mucous membranes - 5 mm opening into sinuses from left po sterior palate - No maxillary or frontal sinus TTP Resp:Non-labored, no wheezing/rhonchi/rales, CTAB CV:RRR, normal S1/S2, no M/R/G Abd: Soft, mildly-distended, no TTP, normoactive bowels, no masses, PEG tube intact Extr: 2+ dp bilaterally, no edema Neuro: Strength symmetric bilaterally, sensation intact Skin: No rashes lesions or erythema Results & Data Results & Data Vital Signs (Past 12 Hours) Vital Signs Temp Pulse Pulse Resp BP BP Pulse Ox 02/21/24 01:14 69 02/21/24 00:30 75 107/71 02/20/24 23:21 76 20 131/76 96 02/20/24 23:00 101/74 02/20/24 22:50 02/20/24 22:40 71 21 96 02/20/24 22:30 71 18 95 02/20/24 22:20 84 16 97 02/20/24 22:10 21 98 02/20/24 22:00 77 15 95 02/20/24 22:00 113/68 02/20/24 21:55 02/20/24 21:50 75 23 98 02/20/24 21:40 76 17 95 02/20/24 21:30 78 113/71 02/20/24 21:30 76 17 98 02/20/24 21:20 80 22 96 02/20/24 21:10 76 12 98 02/20/24 21:08 78 16 98 02/20/24 21:08 78 02/20/24 20:53 36.1 C L 76 20 116/78 98 O2 Del Method 02/21/24 01:14 02/21/24 00:30 02/20/24 23:21 Room Air 02/20/24 23:00 02/20/24 22:50 Room Air 02/20/24 22:40 02/20/24 22:30 02/20/24 22:20 02/20/24 22:10 02/20/24 22:00 02/20/24 22:00 02/20/24 21:55 Room Air 02/20/24 21:50 02/20/24 21:40 02/20/24 21:30 02/20/24 21:30 02/20/24 21:20 02/20/24 21:10 02/20/24 21:08 02/20/24 21:08 02/20/24 20:53 Room Air Supervising Physician Co-Signing Physician Notes Attending addendum: I have physically seen this patient, have supervised the medical residents activities, and agree with the H&P unless as otherwise noted. Assessment and Plan: Acute on chronic hyponatremia- Sodium 129 on admission, with base 132-134 Patient had recently been discharged on 02/17, and sodium was 138 at time, which was artificially high for her Patient has a chronic nutritional component, and malabsorption issue Review PEG tube flushes, to optimize Will place on sodium chloride tablets May benefit from tolvaptan due to chronic nature of her hyponatremia Clivus osteomyelitis- CT head without contrast concerning for possible osteomyelitis of clivus History of chronic fistulous tract of the sinuses requiring frequent washouts and on preventative antibiotics History of 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
[2024-02-21] MEDS ORDERED: MUPIROCIN 2% OINT 22 GM TUBE TOP PRN (03:39)
--- NOTE | 2024-02-21 03:49 | Ultrasound Report ---
Exam(s): US VENOUS BILATERAL LOWER EXTREMITIES EXAM: US Duplex Bilateral Lower Extremities Veins CLINICAL HISTORY: Reason for exam: Bilateral leg pain, eval DVT. TECHNIQUE: Real-time duplex ultrasound scan of the bilateral lower extremity veins integrating B-mode two-dimensional vascular structure, Doppler spectral analysis, color flow Doppler imaging and compression. COMPARISON: No relevant prior studies available. FINDINGS: Right deep veins: Unremarkable. No DVT in the right common femoral, femoral, proximal deep femoral or popliteal veins. The veins demonstrate normal color flow, are normally compressible, with normal phasic flow and/or augmentation response. Right superficial veins: Unremarkable. No thrombus in the visualized right great saphenous vein. Left deep veins: Unremarkable. No DVT in the left common femoral, femoral, proximal deep femoral or popliteal veins. The veins demonstrate normal color flow, are normally compressible, with normal phasic flow and/or augmentation response. Left superficial veins: Unremarkable. No thrombus in the visualized left great saphenous vein. Soft tissues: No acute findings. No popliteal cyst. IMPRESSION: Normal bilateral lower extremity duplex venous ultrasound. Electronically signed by: Denny Beckwith MD 02/21/24 03:47 AM
[2024-02-21] MEDS ORDERED: IPRATROPIUM BROMIDE NASAL SPRAY 0.06% 15ML NAE PRN (04:18)
[2024-02-21] MEDS: GADOBUTROL 65ML VIAL IV ONE (04:24)
[2024-02-21] MEDS: SODIUM CHLORIDE 0.9% 1,000 ML IV SCH (04:59)
[2024-02-21] MEDS: PIPERACILLIN/TAZOBACTAM 4.5 GM in DEXTROSE 5% MINI-B 100 ML IV SCH (06:31)
[2024-02-21] MEDS: LEVOTHYROXINE SODIUM 50 MCG TABLET PO SCH (06:31)
--- NOTE | 2024-02-21 07:16 | Magnetic Resonance Report ---
MR face wo/w con HISTORY: Abnormal head CT. 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 COMPARISON STUDY: CT neck 12/25/2023 and 04/24/2023. FINDINGS: Trace fluid within the right maxillary sinus and mild mucosal thickening within the frontal sinuses and residual ethmoid air cells. Small amount of debris within the anterior aspect of the lef t maxillary sinus which demonstrates a 9 mm T2 hyperintense, T1 hypointense slightly enhancing nodule at the anterior wall. This is best seen on axial image 23. There has been prior resection of the michela ority the posterior wall of the left maxillary sinus. Fluid levels resulting in near complete opacifi cation of the residual sphenoid sinuses. There is diffuse signal abnormality with enhancement and a f ocal gas/fluid collection at the clivus measuring 22 x 17 mm best seen on axial image 20. There appea rs to be an associated nondisplaced pathologic fracture at the base of the clivus. The destructive ch frandy at the clivus favors an osteomyelitis which has progressed in the interval. Large bilateral mast oid effusions persist. There is edema and enhancement within the bilateral taker off braker machine spaces most pro nounced on the left. This involves the bilateral pterygoid muscles as well as the left masseter muscl e. There is abnormal signal and enhancement within the junction of the left zygomatic arch and latera l wall the maxillary sinus best seen on image 21 with surrounding enhancement. This could represent a n additional site of osteomyelitis. Recurrent infiltrative malignancy at the clivus, taker off braker machine space s, and left zygomatic arch with be difficult to exclude due to the extensive signal abnormality/enhan cement. Small focus of encephalomalacia within the anterior frontal lobes again noted. However, these areas demonstrate mild enhancement. There is also minimal dural enhancement at the anterior frontal lobes. Therefore, this is concerning for an associated cerebritis/meningitis. No evidence for intracr anial abscess. There is also a focal gas and fluid collection along the left side of the clivus on ax ial image 19 which measures 11 mm. This is in the location of the left eustachian tube has also progr essed in the interval. This could represent an additional area of abscess. The orbits are unremarkabl e. The major vascular flow-voids at the skull base are maintained. IMPRESSION: 1. There is diffuse signal abnormality with enhancement and a focal gas/fluid collection at the clivu s measuring 22 x 17 mm. Therefore, this favors an osteomyelitis at the clivus with an associated absc ess. This is likely due to extension from the opacified sphenoid sinuses. There appears to be an asso ciated nondisplaced pathologic fracture at the base of the clivus. Overall, this has progressed in th e interval. 2. There is edema and enhancement within the bilateral taker off braker machine spaces most pronounced on the left. This involves the bilateral pterygoid muscles as well as the left masseter muscle. This favors assoc iated infection. 3. There is abnormal signal and enhancement within the junction of the left zygomatic arch and latera l wall of the left maxillary sinus with surrounding enhancement. This could represent an additional s ite of osteomyelitis. 4. However, recurrent infiltrative malignancy at the clivus, taker off braker machine spaces, and left zygomatic ar ch with be difficult to exclude due to the extensive signal abnormality/enhancement. 5. Small foci of encephalomalacia within the anterior frontal lobes again noted. However, these areas demonstrate mild enhancement. There is also minimal dural enhancement at the anterior frontal lobes. Therefore, this is concerning for an associated cerebritis/meningitis. No evidence for intracranial abscess. 6. There is a 9 mm nodule at the anterior aspect of the left maxillary sinus which demonstrates mild enhancement. This could represent recurrent malignancy or retention cyst. 7. Large bilateral mastoid effusions persist. ACT 112: Negative or not required by law. Electronically signed by: Rowdy Perez M.D. 02/21/2024 7:13 AM
[2024-02-21] MEDS: AZELASTINE HCL 0.1% NASAL 200 SPRAYS/27,400 MCG BTL SCH (08:18)
[2024-02-21] MEDS: FLUTICASONE PROPIONATE NA SPR 16 GM BTL SCH (08:18)
[2024-02-21] MEDS: CHOLECALCIFEROL 25 MCG (1000 UNITS) TAB GT SCH (08:19)
[2024-02-21] MEDS: FAMOTIDINE SUSP 40 MG/5 ML UDP NG SCH (08:19)
--- NOTE | 2024-02-21 08:22 | XRay Report ---
XR chest 1V portable CLINICAL HISTORY: Chest pain, nonspecific TECHNIQUE: Single frontal radiograph of the chest was obtained. Comparison: Comparison is made to chest radiograph 01/08/2024 FINDINGS: No lines and tubes are seen. The cardiomediastinal silhouette is normal. The lungs are clear. No evid ence of pleural effusion or pneumothorax. IMPRESSION: No acute chest disease. ACT 112: Negative or not required by law. Electronically signed by: Armand Mclain M.D. 02/21/2024 8:21 AM
[2024-02-21 08:37] LABS: Basophils # (auto) 0.03 K/uL (0.00-0.20); Basophils % (auto) 0.3 %; Eosinophils # (auto) 0.11 K/uL (0.00-0.50); Eosinophils % (auto) 1.1 %; Hemoglobin 10.7 g/dl (12.0-16.0); Immature Granulocytes # (auto) 0.05 K/uL (0.01-0.20); Immature Granulocytes % (auto) 0.5 %; Lymphocytes # (auto) 1.31 K/uL (1.20-3.40); Lymphocytes % (auto) 13.3 %; Mean Corpuscular Hemoglobin 30.2 pg (25.0-34.0); Mean Corpuscular Hgb Conc 32.4 g/dL (32.0-36.0); Mean Corpuscular Volume 93.2 fL (80.0-100.0); Mean Platelet Volume 8.2 fL (9.4-12.4); Monocytes # (auto) 0.93 K/uL (0.11-0.59); Monocytes % (auto) 9.5 %; Neutrophils # (auto) 7.41 K/uL (1.40-6.50); Neutrophils % (auto) 75.3 %; Platelet Count 255 K/uL (130-400); RDW Coefficient of Variation 14.2 % (11.5-14.5); RDW Standard Deviation 48.3 fL (36.4-46.3); Red Blood Count 3.54 M/uL (4.20-5.40); White Blood Count 9.84 K/ul (4.8-10.8)
--- NOTE | 2024-02-21 08:44 | Electrocardiogram Report ---
Test Reason : Blood Pressure : / mmHG Vent. Rate : 075 BPM Atrial Rate : 075 BPM P-R Int : 210 ms QRS Dur : 056 ms QT Int : 380 ms P-R-T Axes : 068 053 062 degrees QTc Int : 424 ms Sinus rhythm with 1st degree A-V block Low voltage QRS Possible Septal infarct , age undetermined Abnormal ECG When compared with ECG of 08-JAN-2024 15:44, Criteria for Anteroseptal infarct now present T wave inversion now evident in Anterior leads Confirmed by Gaudencio Sibley ([id number]) on 02/21/2024 8:44:18 AM Referred By: Maday Pride Confirmed By:Gaudencio Sibley
[2024-02-21 08:54] LABS: BUN Creatinine Ratio 24.2 (10-20); C Reactive Protein 2.28 mg/dl (0-0.5); Calcium 8.2 mg/dl (8.6-10.3); Creatinine Clr Calc Pharmacy 68.8 ml/min; Est GFR (African American) 105.1 ml/min; Est GFR (Non-African American) 90.7 ml/min; Potassium 3.9 mmol/L (3.5-5.1)
[2024-02-21] MEDS ORDERED: DESLORATADINE 5 MG PO SCH (09:00)
[2024-02-21] MEDS ORDERED: [UNRECOGNIZED DRUG - OTHER] PEG SCH (09:00)
[2024-02-21] MEDS ORDERED: NON-FORMULARY MEDICATION (Lactose-Reduced Food With Fibr [Jevity 1.5 Cal] 0.06 gram-1.5 kc feeding tube SCH (09:00)
[2024-02-21] MEDS ORDERED: Nursing to Pharmacy Communication SCH (09:15)
[2024-02-21] MEDS: CETIRIZINE HCL 10 MG TABLET PO SCH ×2 (09:17→21:20)
[2024-02-21] MEDS ORDERED: VANCOMYCIN CONSULT ACTIVE PRN (09:50)
[2024-02-21] MEDS: metroNIDAZOLE 500 MG/100 ML BAG IV SCH (10:38)
[2024-02-21] MEDS: CEFEPIME 2,000 MG in SYRINGE 0 ML IV SCH (10:38)
--- NOTE | 2024-02-21 10:53 | Pharmacy Report ---
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 * Infectious Disease is consulted and recommended the above regimen * Patient does have a prior h/o sq cell CA ethmoid sinus, intranasal adhesions, chronic sinusitis, chronic otitis media. She does use ciprofloxacin and gentamicin nasal rinses routinely. * Pertinent microbiologic data includes: BLCXs are currently pending, negative Lyme screening and negative periph smear for babesia/anaplasma. 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 Plan Vancomycin * Loading dose: 1250 mg IV x 1 * Maintenance dose: 1000 mg IV every 12 hours - this dose can be started as soon as 6 hours after the loading dose administered * Regimen is predicted to achieve target AUC/TRISTAN of 400-600 mg/L.hr * Level ordered for tomorrow, following 2nd maint dose but prior to 3rd maint dose Pharmacy will continue to follow and will adjust dose/frequency as necessary. Thank you. Pharmacy has transitioned to AUC monitoring for vancomycin. AUC/TRISTAN is the preferred PK/PD target and is associated with decreased risk of nephrotoxicity compared to traditional trough targets.
--- NOTE | 2024-02-21 11:14 | Infectious Disease Consult ---
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 Here she has been afebrile, BP stable. WBC 9.78. Cr 0.58. LFT wnl. UA negative. CTH with findings c/f OM of clivus. CTA head/neck negative. BL LE venous doppler neg. MRI face with diffuse signal abnormality with enhancement and a focal gas/fluid collection at the clivus measuring 22 x 17 mm c/f OM with abscess at clivus, likely due to extension from opacified sphenoid sinuses, associated nondisplaced pathologic fracture at base of clivus; edema and enhancement of bl divisional human resources director spaces L>R involving bl pterygoid mm and left masseter muscle; abnormal signal and enhancement at junction of left zygomatic arch and lateral wall of left maxillary sinus c/f additional sites of OM; minimal dural enhancement at anterior frontal lobes c/f associated cerebritis/meningitis, no e/o intracranial abscess. She was given zosyn. ID consulted 02/20. Source possibly related to sinus extension. Divina broadened abx accordingly. Given collection c/f abscess, I do think that she needs surgical intervention. Since NSGY and ENT not available here, would advise transfer to tertiary care facility. # OM of clivus bone with abscess # OM involving left zygomatic arch and lateral wall of left maxillary sinus # Frontal lobe enhancement c/f cerebritis/meningitis # h/o SCC of left neck and left ethmoid sinus s/p tx # h/o chronic sinusitis/otitis media with fistula on intranasal cipro/gent/dexa - Divina changed abx to vancomycin, cefepime, and flagyl for coverage of PRINTS AND DRAWINGS CURATOR infection - follow up blood cultures - would transfer patient for surgical management ID will continue to follow. If questions or concerns, contact Infectious Disease Call Center . Viviana Rodriguez MD [facility], Division of Infectious Diseases [facility]: [phone] Consultation Information Consultation was provided via telemedicine using two-way real-time interactive telecommunication between the patient and the telemedicine provider. For the duration of the visit, the provider was performing the assessment from a different facility than the patient. This includesuse of bluetooth stethoscope forauscultationperformed by the telepresenter that the telemedicine provider can hear if described in the physical exam. Printing Machinist contact information: Please call [facility] Call Center . 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 She felt well after her recent discharge, but on 02/18 developed increasing weakness in her legs similar to before. She also has had intermittent upper neck pain at the base of her skull and about 2 weeks ago, developed a transient episode of left facial swelling and redness, which improved when she got steroids during her last admission. She occasionally has right ear pain. Denied having chills, headache, fevers, vision changes, vomiting, diarrhea, abdominal pain, dysuria. She was seen by her PCP on 02/19 and c/f hyponatremia and so presented to ED. Here she has been afebrile, BP stable. WBC 9.78. Cr 0.58. LFT wnl. UA negative. CTH with findings c/f OM of clivus. CTA head/neck negative. BL LE venous doppler neg. MRI face with diffuse signal abnormality with enhancement and a focal gas/fluid collection at the clivus measuring 22 x 17 mm c/f OM with abscess at clivus, likely due to extension from opacified sphenoid sinuses, associated nondisplaced pathologic fracture at base of clivus; edema and enhancement of bl divisional human resources director spaces L>R involving bl pterygoid mm and left masseter muscle; abnormal signal and enhancement at junction of left zygomatic arch and lateral wall of left maxillary sinus c/f additional sites of OM; minimal dural enhancement at anterior frontal lobes c/f associated cerebritis/meningitis, no e/o intracranial abscess. She was given zosyn. ID consulted 02/20. On evaluation, patient reports having headaches sometimes where the back of her neck would hurt, but this was not constant. She has been using her intranasal solutions. No other vision changes or facial pain. No rashes. She notes the middle of her neck hurts at times. No abdominal pain, vomiting, diarrhea. Notes that her legs feel weak. No focal numbness/weakness. Allergies Allergy/AdvReac Type Severity Reaction Status Date / Time budesonide Allergy Severe Dyspnea, Verified 02/20/24 21:56 irritability, swelling sucralfate Allergy Severe Dyspnea Verified 02/20/24 21:56 adhesive Allergy Intermediate Rash Verified 02/20/24 21:56 amoxicillin [From Augmentin] AdvReac Intermediate Diarrhea Verified 02/20/24 21:56 cefadroxil AdvReac Intermediate Gastrointestinal Verified 02/20/24 21:56 Upset clavulanic acid AdvReac Intermediate Diarrhea Verified 02/20/24 21:56 [From Augmentin] diclofenac AdvReac Intermediate Headache Verified 02/20/24 21:56 oxycodone AdvReac Intermediate Hallucinati Verified 02/20/24 21:56 ons Penicillins AdvReac Intermediate Gastrointestinal Verified 02/20/24 21:56 Upset tramadol AdvReac Intermediate Syncopal Verified 02/20/24 21:56 episode escitalopram [From Lexapro] AdvReac Mild nausea Verified 02/20/24 21:56 Home Medications Medication Instructions Recorded Confirmed Type triamcinolone acetonide 55 mcg 2 spray intranasal QAM 05/10/21 02/20/24 History nasal spray aerosol (Nasacort) estradiol 0.01% (0.1 mg/gram) 1 g vaginal 2XWK #42.5 grams 06/27/23 02/20/24 Rx vaginal cream famotidine 40 mg/5 mL (8 mg/mL) 40 mg (5 mL) feeding tube BID #300 11/12/23 02/20/24 Rx oral suspension mL Autologous 20 % Solution 1 dose OPB 6XD Dry Eyes 11/26/23 02/20/24 History Idcq459et/Dex2mg/Laxasperse Cap 1 dose HS 11/26/23 02/20/24 History azelastine 137 mcg (0.1 %) nasal 2 spray intranasal BID 11/26/23 02/20/24 History spray aerosol lactose-reduced food with fiber 1 ea feeding tube DAILY 11/26/23 02/20/24 History 0.06 gram-1.5 kcal/mL oral liquid (Jevity 1.5 Drsis) mupirocin 2 % topical ointment 1 applic topical BID PRN nasal 11/26/23 02/20/24 History dryness or bleeding oxyquinoline 0.025 %-sodium lauryl 1 ea vaginal QPM PRN Other 11/26/23 02/20/24 History sulfate 0.01 % vaginal gel Probiotic 1 cap PO BID 01/08/24 02/20/24 History cholecalciferol (vitamin D3) 25 12.5 mcg feeding tube QAM 01/08/24 02/20/24 History mcg (1,000 unit) capsule (Vitamin D3) desloratadine 5 mg tablet 5 mg PO DAILY 01/08/24 02/20/24 History (Clarinex) deaewrv-[id number] oil 0.12 5 g topical QPM 01/08/24 02/20/24 History mg-87 mg-788 mg/g topical gel varenicline 0.03 mg/spray nasal 1 spray intranasal BID 01/08/24 02/20/24 History spray (Tyrvaya) atorvastatin 10 mg tablet (Lipitor) 10 mg feeding tube HS #90 tabs 01/31/24 02/20/24 Rx levothyroxine 50 mcg capsule 50 mcg PO QAM #90 caps 01/31/24 02/20/24 Rx trazodone 50 mg tablet 50 mg feeding tube HS #90 tabs 01/31/24 02/20/24 Rx ciprofloxacin (mixture) 1 cap intranasal UD 02/15/24 02/20/24 History ipratropium bromide 21 mcg (0.03 2 spray intranasal BID PRN Other 02/15/24 02/20/24 History %) nasal spray banana [id number] 5 gram-45 60 ml PEG BID 02/20/24 02/20/24 History kcal/60 mL tube feed liquid packet (Banatrol TF) cetirizine 10 mg capsule (Zyrtec) 10 mg PO DAILY 02/20/24 02/20/24 History Patient History Medical History Dry eye Acid reflux Osteopenia Hypothyroidism Insomnia Gallstones Positive JENNIE (antinuclear antibody) Pneumoperitoneum Anemia Anxiety Vaginal pessary present Dysphagia Sensorineural hearing loss (SNHL) of both ears Hiatal hernia Hyperlipidemia Primary squamous cell carcinoma of ethmoidal sinus Surgical History History of myringotomy S/P percutaneous endoscopic gastrostomy (PEG) tube placement S/P percutaneous endoscopic gastrostomy (PEG) tube placement History of temporal artery biopsy History of foot surgery History of anesthesia reaction History of breast biopsy History of dilatation and curettage History of surgical removal of ganglion cyst History of tonsillectomy and adenoidectomy History of placement of ear tubes History of colonoscopy History of esophagogastroduodenoscopy (EGD) History of cataract surgery Hx of eye surgery Hx of lymph node excision History of endoscopic sinus surgery Family History Mother Family hx of colon cancer Colorectal cancer Cancer Father Diabetes Acute myocardial infarction Heart disease Myocardial infarction Family/Other Breast cancer Grandmother (Paternal) Breast cancer Grandmother (Maternal) Diabetes Other No family history of adverse response to anesthesia Denies family history of Ovarian cancer Prostate cancer Social History Smoking Status: Never smoker Second Hand Exposure: Yes (dad smoked); Do You Dip or Chew Tobacco: No; Hx Alcohol Use: No Hx Substance Use: No Preferred Language: Lithuanian Communication Ability: Effective Visual Impairment: No Limitations Hearing Ability: Use of Hearing Aid Small Appliance Assembly Supervisor Required: No Beliefs That Will Affect Care: None marital status: Current Living Situation: Spouse current occupational status: retired 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[employer] How many Children do You have: 4 Feels Safe at Home: Yes Safety Concerns: Feels Safe At This Time Childhood Exposure to Second-Hand Smoke: Yes Diet: regular Diet Comment: has PEG tube feedings 4X a day, she gives her feedings to herself during the past year weight has: decreased > 10 lbs Dental Care, Regularly: Yes Physical Activity Frequency: Does not Exercise Physical Activity Frequency Comment: not currently, walks sometimes in the nicer weather Seatbelt Use: always Sunscreen Use: Yes Assistive Devices: Walker Review of System 10-point review of systems reviewed and are negative except for as above. Physical Exam 2 Physical Exam: General: Awake, alert, no acute distress HEENT: NC/AT, EOMI, mmm Neck: supple, no ttp of the neck Lungs: respirations non-labored Heart: nl peripheral perfusion Abdomen: soft, NT/ND Back: no spinal tenderness Ext: no LE edema Skin: no rash Neuro: moving all extremities Results & Data Vital Signs (Past 12 Hours) Vital Signs Pulse Pulse Resp BP BP Pulse Ox O2 Del Method 02/21/24 11:08 74 16 120/71 98 Room Air 02/21/24 06:46 69 18 116/77 96 Room Air 02/21/24 04:07 67 18 104/70 96 Room Air 02/21/24 03:00 67 17 104/70 02/21/24 02:00 72 10 L 101/67 02/21/24 01:14 69 02/21/24 00:30 75 107/71 02/20/24 23:21 76 20 131/76 96 Room Air Laboratory Results Labs reviewed. Diagnostic Findings Imaging reviewed.
[2024-02-21] MEDS: guaiFENesin/DEXTROM SYRUP 100MG/10MG 5ML UDC PO SCH (11:35)
[2024-02-21] MEDS: VANCOMYCIN HCL 1,250 MG in SODIUM CHLORIDE 0.9% 250 ML IV STA (12:03)
--- NOTE | 2024-02-21 12:13 | Oral/Maxillofacial Consult ---
Date of Consultation February 21, 2024 Assessment & Plan (1) Acute osteomyelitis of facial bone: (2) Weakness: (3) Cerebritis: (4) Hyponatremia: (5) Fistula of maxillary sinus: (6) Sphenoid sinusitis: History of Present Illness Attending Physician: Tricia Gonzáles MD History of Present Illness Tiff is a 73F w/ PMH of chronic hyponatremia (baseline 132-134), microscopic colitis w/ chronic diarrhea, chronic sinusitis/otitis media a/w intranasal senechia and fistula formation s/p radiation, reflux, HLD, and arthritis who presented for abnormal outpatient labs. Patient is being admitted for hyponatremia and osteomyelitis management. She is PEG tube dependent for feedings at baseline. Acute on Chronic Hyponatremia - Patient chronically hyponatremic to 132-134, now acutely 129 - Recent admission 02/13-02/17 for hyponatremia to 121, discharged at 138 - Mild symptoms: acute weakness of her legs starting Saturday - Laboratories 02/14 Osmolality 255 L (hypotonic hyponatremia) 02/14 Urine Osmolality 385 L 02/14 Urine Na Random 82 Hypovolemic on exam - Presentation concerning for renal losses +/- SIADH, likely multifactorial - mIVF ordered - Follow PEG tube saline flushes inpatient - potential contribution to Na level fluctuations - Consider addition of salt tablets - Potential fpc benefit from Tolvaptan 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 requiring frequent washouts and preventative Abx - Associated with radiation treatments 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 Dr Blancas who was my partner did surgery on Mrs. Alonzo in the past. I called him to get some background of this case. There was a cancer in the Ethmoid sinus that required extensive ENT resection an d radiation at [facility] ( Dr Lopez). 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 She was signed off by [facility]. I reviewed the MRI findings and ID suggestions. 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 We had [facility] look over the recent scans and MRI and they feel that no surgery is indicated at this time. The plan is to keep Mrs. Alonzo at [facility] and manage her Na and osteomyelitis. We were considering patient transfer given extent of infection and abscess formation which may have needed drainage. Hospital medicine Spoke with [facility] telephone installer (Dr. Arturo Medina) who reviewed the images closely with neuroradiology and compared them with previous imaging. They did agree with osteo however did not think there was an abscess formation but rather just a pocket of fluid possibly an extension from the sphenoid. The deterioration of the bone itself is a natural progression from her previous radiation. They did not think surgical intervention was necessary at this time. Even obtaining a clivus biopsy could cause more harm than benefit. As long as pt is stable and no systemic symptoms, advised to treat the osteomyelitis and follow up with them as an outpatient. -ID following -cont. cefepime, flagyl, vanc - blood cx pending - will tailor abx as much as possible to treat osteo however will be difficult without culture. Pt has h/o pseudomonal and staph infection in sinuses. Oral/maxillary following I will follow as needed. The management will be directed at IV antibiotics to hopefully control the acute symptoms from the osteo and medical management of her electrolytes. I did evaluated Tiff in the ER. There was no drainage from the upper left sinus-palate fistula to obtain a culture. There was no swelling or abscess formation in the oral maxillofacial area. Bone changes secondary to the past surgery and radiation treatment. Unfortunately not able to get culture to [place] bacteria and will have to treat empirically based on symptoms. Pt has h/o pseudomonal and staph infection in sinuse Allergies Allergy/AdvReac Type Severity Reaction Status Date / Time budesonide Allergy Severe Dyspnea, Verified 02/20/24 21:56 irritability, swelling sucralfate Allergy Severe Dyspnea Verified 02/20/24 21:56 adhesive Allergy Intermediate Rash Verified 02/20/24 21:56 amoxicillin [From Augmentin] AdvReac Intermediate Diarrhea Verified 02/20/24 21:56 cefadroxil AdvReac Intermediate Gastrointestinal Verified 02/20/24 21:56 Upset clavulanic acid AdvReac Intermediate Diarrhea Verified 02/20/24 21:56 [From Augmentin] diclofenac AdvReac Intermediate Headache Verified 02/20/24 21:56 oxycodone AdvReac Intermediate Hallucinati Verified 02/20/24 21:56 ons Penicillins AdvReac Intermediate Gastrointestinal Verified 02/20/24 21:56 Upset tramadol AdvReac Intermediate Syncopal Verified 02/20/24 21:56 episode escitalopram [From Lexapro] AdvReac Mild nausea Verified 02/20/24 21:56 Home Medications Medication Instructions Recorded Confirmed Type triamcinolone acetonide 55 mcg 2 spray intranasal QAM 05/10/21 02/20/24 History nasal spray aerosol (Nasacort) estradiol 0.01% (0.1 mg/gram) 1 g vaginal 2XWK #42.5 grams 06/27/23 02/20/24 Rx vaginal cream famotidine 40 mg/5 mL (8 mg/mL) 40 mg (5 mL) feeding tube BID #300 11/12/23 02/20/24 Rx oral suspension mL Autologous 20 % Solution 1 dose OPB 6XD Dry Eyes 11/26/23 02/20/24 History Mgjw379dy/Dex2mg/Laxasperse Cap 1 dose HS 11/26/23 02/20/24 History azelastine 137 mcg (0.1 %) nasal 2 spray intranasal BID 11/26/23 02/20/24 History spray aerosol lactose-reduced food with fiber 1 ea feeding tube DAILY 11/26/23 02/20/24 History 0.06 gram-1.5 kcal/mL oral liquid (Jevity 1.5 Driss) mupirocin 2 % topical ointment 1 applic topical BID PRN nasal 11/26/23 02/20/24 History dryness or bleeding oxyquinoline 0.025 %-sodium lauryl 1 ea vaginal QPM PRN Other 11/26/23 02/20/24 History sulfate 0.01 % vaginal gel Probiotic 1 cap PO BID 01/08/24 02/20/24 History cholecalciferol (vitamin D3) 25 12.5 mcg feeding tube QAM 01/08/24 02/20/24 History mcg (1,000 unit) capsule (Vitamin D3) desloratadine 5 mg tablet 5 mg PO DAILY 01/08/24 02/20/24 History (Clarinex) czqgnah-jzigbv-ocdjbv oil 0.12 5 g topical QPM 01/08/24 02/20/24 History mg-87 mg-788 mg/g topical gel varenicline 0.03 mg/spray nasal 1 spray intranasal BID 01/08/24 02/20/24 History spray (Tyrvaya) atorvastatin 10 mg tablet (Lipitor) 10 mg feeding tube HS #90 tabs 01/31/24 02/20/24 Rx levothyroxine 50 mcg capsule 50 mcg PO QAM #90 caps 01/31/24 02/20/24 Rx trazodone 50 mg tablet 50 mg feeding tube HS #90 tabs 01/31/24 02/20/24 Rx ciprofloxacin (mixture) 1 cap intranasal UD 02/15/24 02/20/24 History ipratropium bromide 21 mcg (0.03 2 spray intranasal BID PRN Other 02/15/24 02/20/24 History %) nasal spray banana mgcodc-HSF-pwpha 5 gram-45 60 ml PEG BID 02/20/24 02/20/24 History kcal/60 mL tube feed liquid packet (Banatrol TF) cetirizine 10 mg capsule (Zyrtec) 10 mg PO DAILY 02/20/24 02/20/24 History Patient History Medical History Dry eye Acid reflux Osteopenia Hypothyroidism Insomnia Gallstones Positive JENNIE (antinuclear antibody) Pneumoperitoneum Anemia Anxiety Vaginal pessary present Dysphagia Sensorineural hearing loss (SNHL) of both ears Hiatal hernia Hyperlipidemia Primary squamous cell carcinoma of ethmoidal sinus Surgical History History of myringotomy S/P percutaneous endoscopic gastrostomy (PEG) tube placement S/P percutaneous endoscopic gastrostomy (PEG) tube placement History of temporal artery biopsy History of foot surgery History of anesthesia reaction History of breast biopsy History of dilatation and curettage History of surgical removal of ganglion cyst History of tonsillectomy and adenoidectomy History of placement of ear tubes History of colonoscopy History of esophagogastroduodenoscopy (EGD) History of cataract surgery Hx of eye surgery Hx of lymph node excision History of endoscopic sinus surgery Family History Mother Family hx of colon cancer Colorectal cancer Cancer Father Diabetes Acute myocardial infarction Heart disease Myocardial infarction Family/Other Breast cancer Grandmother (Paternal) Breast cancer Grandmother (Maternal) Diabetes Other No family history of adverse response to anesthesia Denies family history of Ovarian cancer Prostate cancer Social History Smoking Status: Never smoker Second Hand Exposure: Yes (dad smoked); Do You Dip or Chew Tobacco: No; Hx Alcohol Use: No Hx Substance Use: No Preferred Language: Tongan Communication Ability: Effective Visual Impairment: No Limitations Hearing Ability: Use of Hearing Aid Retail Grocer Required: No Beliefs That Will Affect Care: None marital status: Current Living Situation: Spouse current occupational status: retired 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[facility] [place] How many Children do You have: 4 Feels Safe at Home: Yes Childhood Exposure to Second-Hand Smoke: Yes Diet: regular Diet Comment: has PEG tube feedings 4X a day, she gives her feedings to herself during the past year weight has: decreased > 10 lbs Dental Care, Regularly: Yes Physical Activity Frequency: Does not Exercise Physical Activity Frequency Comment: not currently, walks sometimes in the nicer weather Seatbelt Use: always Sunscreen Use: Yes Assistive Devices: Walker Results & Data Vital Signs (Past 12 Hours) Vital Signs Pulse Pulse Resp BP BP Pulse Ox O2 Del Method 02/21/24 11:38 Room Air 02/21/24 11:08 74 16 120/71 98 Room Air 02/21/24 06:46 69 18 116/77 96 Room Air 02/21/24 04:07 67 18 104/70 96 Room Air 02/21/24 03:00 67 17 104/70 02/21/24 02:00 72 10 L 101/67 02/21/24 01:14 69 02/21/24 00:30 75 107/71 PG Care Time/CCT Total # of Minutes Spent Total Time Spent with Patient: Total time spent is greater than 50% in coordination of care (as documented) at patient's floor/unit and/or counseling patient: Coding Level of Care Code 64452 INT INP/OBS CARE 2/55MIN Diagnoses Acute osteomyelitis of facial bone M86.18 Weakness R53.1 Cerebritis G04.90 Hyponatremia E87.1 Fistula of maxillary sinus J32.0 Sphenoid sinusitis J32.3
--- NOTE | 2024-02-21 13:49 | Hospitalist Progress Note ---
Date of Service February 21, 2024 Assessment & Plan (1) Hyponatremia: Plan: Tiff is a 73F w/ PMH of chronic hyponatremia (baseline 132-134), microscopic colitis w/ chronic diarrhea, chronic sinusitis/otitis media a/w intranasal senechia and fistula formation s/p radiation, reflux, HLD, and arthritis who presented for abnormal outpatient labs. Patient is being admitted for hyponatremia and osteomyelitis management. She is PEG tube dependent for feedings at baseline. #Acute Hyponatremia - Na 129 on admission. With associated lower extremity weakness and fatigue. Recent admission 02/13-02/17 for hyponatremia to 121, discharged at 138 - was feeling well at time of discharge - Urine studies: serum osm 255, urine osm 385, urine Na 82 - hypovolemic on exam - Presentation concerning for renal losses +/- SIADH, likely multifactorial - received 1L at maintenance rate. Repeat Na 130. Hold IVF at this time. Repeat labs in am. Will also include random cortisol since there was concern for adrenal insufficiency during last hospitalization. - Follow PEG tube saline flushes inpatient - potential contribution to Na level fluctuations - Consider addition of salt tablets. Potential chcf benefit from Tolvaptan #Osteomyelitis of Clivus, Zygomatic arch, and Wall of Maxillary sinus -seen on initial imaging for headache -Face MRI: diffuse signal abnormality and fluid collection at the clivus. Concern for osteomyelitis with abscess formation. Progressed nondisplaced pathologic fracture of the clivus. 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 Suggests extension of infection. -Was considering patient transfer given extent of infection and abscess formation which may have needed drainage. Spoke with [facility] electronic scale tester (Dr. Arturo Medina) who reviewed the images closely with neuroradiology and compared them with previous imaging. They did agree with osteo however did not think there was an abscess formation but rather just a pocket of fluid possibly an extension from the sphenoid. The deterioration of the bone itself is a natural progression from her previous radiation. They did not think surgical intervention was necessary at this time. Even obtaining a clivus biopsy could cause more harm than benefit. As long as pt is stable and no systemic symptoms, advised to treat the osteomyelitis and follow up with them as an outpatient. -ID following -cont. cefepime, flagyl, vanc - blood cx pending - will tailor abx as much as possible to treat osteo however will be difficult without culture. Pt has h/o pseudomonal and staph infection in sinuses. -Oral/maxillary following - Nasal Ciprofloxacin, Gentamicin, and Dexamethasone rinses held Chronic Conditions: HLD: statin held Reflux: continue famotidine Hypothyroidism: continue levothyroxine Insomnia: continue trazodone Microscopic colitis: diarrhea resolved, stable FEN: NPO, all feeds through PEG Code status: Full Code DVT ppx: lovenox Dispo:med tele (2) Acute osteomyelitis of facial bone: (3) Chronic sinusitis: (4) Chronic otitis media: (5) Intranasal synechiae: (6) Esophageal dysphagia: (7) High cholesterol: (8) Microscopic colitis: (9) On tube feeding diet: (10) Presence of externally removable percutaneous endoscopic gastrostomy (PEG) tube: Admission and Anticipated Discharge Date Admission Date: February 21, 2024 Supervising Physician Co-Signing Physician Notes Attending Physician Supervision Note: I independently interviewed and examined the patient and verified the beltran history and physical, reviewed labs and image studies and agree with findings and care plan noted above. Here with headache and weakness; abnormal face MRI findings; low sodium level. Headache - MRI findings are chronic as per discussion with [facility] E[facility]. advised to treat osteomyelitis Osteomyelitis of Clivus, Zygomatic arch, and Wall of Maxillary sinus - continue IV abx. ID input appreciated. Hyponatremia - undifferentiated etiology. -random cortisol of 7 last admission while in acute stress setting and Received stress doses of steroids. -BP readings this admission are lower. -will add stress dose for 24 hours then low dose hydrocortisone. -serum osmolality last admit was 225 in the setting of acute diarrhea - received salt tablets. -if no improvement with hydrocortisone - will add salt tablets as well. Subjective Seen at bedside this morning. Still with lower extremity weakness bilaterally. Feels fatigued. Intermittent headache. Denies cp, sob, abd pain, N/V, dysuria, cough. Review of Systems Review of Systems: All systems reviewed & are unremarkable except as noted in HPI & below Physical Exam Physical Exam: Constitutional: in no acute distress, pleasant and normal affect, intact memory. Vitals as above. HEENT: No scleral injection or discharge.Dry mucous membranes.No maxillary or frontal sinus tenderness. Neck: Supple without lymphadenopathy. Trachea midline. Lungs: CTAB, no wheezes/rales/rhonchi Cardiac: RRR. No murmurs. No lower extremity edema. 2+ distal peripheral pulses. Abdomen: Bowel sounds present. Soft, nontender, and nondistended.No guarding. No hepatosplenomegaly. +PEG tube intact MSK: No cyanosis or clubbing. Skin: No rashes, warm, dry. Neurologic: no focal deficits Results & Data Results & Data Vital Signs (Past 12 Hours) Vital Signs Pulse Pulse Resp BP BP Pulse Ox O2 Del Method 02/21/24 11:38 Room Air 02/21/24 11:08 74 16 120/71 98 Room Air 02/21/24 06:46 69 18 116/77 96 Room Air 02/21/24 04:07 67 18 104/70 96 Room Air 02/21/24 03:00 67 17 104/70 02/21/24 02:00 72 10 L 101/67 Laboratory Results 02/21/24 02/20/24 02/20/24 Range/Units 08:18 22:42 21:05 WBC 9.84 9.78 (4.8-10.8) K/ul RBC 3.54 L 3.40 L (4.20-5.40) M/uL Hgb 10.7 L 10.5 L (12.0-16.0) g/dl Hct 33.0 L 31.5 L (37.0-47.0) % MCV 93.2 92.6 (80.0-100.0) fL MCH 30.2 30.9 (25.0-34.0) pg MCHC 32.4 33.3 (32.0-36.0) g/dL RDW Std Deviation 48.3 H 48.1 H (36.4-46.3) fL RDW Coeff of Lucien 14.2 14.3 (11.5-14.5) % Plt Count 255 275 (130-400) K/uL MPV 8.2 L 8.6 L (9.4-12.4) fL Immature Gran % (Auto) 0.5 0.5 % Neut % (Auto) 75.3 76.2 % Lymph % (Auto) 13.3 14.4 % Miller % (Auto) 9.5 8.2 % Eos % (Auto) 1.1 0.5 % Baso % (Auto) 0.3 0.2 % Neut # (Auto) 7.41 H 7.45 H (1.40-6.50) K/uL Lymph # (Auto) 1.31 1.41 (1.20-3.40) K/uL Miller # (Auto) 0.93 H 0.80 H (0.11-0.59) K/uL Eos # (Auto) 0.11 0.05 (0.00-0.50) K/uL Baso # (Auto) 0.03 0.02 (0.00-0.20) K/uL Immature Gran # (Auto) 0.05 0.05 (0.01-0.20) K/uL ESR 36 H (0-30) mm/hr PT 10.3 (9.0-12.0) Seconds INR 0.9 (0.9-1.1) APTT 28 (21-31) Seconds PTT Ratio 1.0 Sodium 130 L 129 L (136-145) mmol/L Potassium 3.9 3.9 (3.5-5.1) mmol/L Chloride 95 L 93 L (98-107) mmol/L Carbon Dioxide 31 31 (21-32) mmol/L Anion Gap 4 5 (3-11) BUN 15 20 (6-23) mg/dl Creatinine 0.62 0.58 L (0.6-1.2) mg/dl Est Cr Clr Drug Dosing 68.8 73.6 ml/min Est GFR ( Amer) 105.1 107.5 ml/min Est GFR (Non-Af Amer) 90.7 92.7 ml/min BUN/Creatinine Ratio 24.2 H 34.5 H (10-20) Glucose 85 116 H (70-99(Fasting)) mg/dl Calcium 8.2 L 8.7 (8.6-10.3) mg/dl Magnesium 2.0 1.9 (1.7-2.4) mg/dl Total Bilirubin 0.4 (0.2-1.0) mg/dl AST 15 (13-39) U/L ALT 14 (7-52) U/L Alkaline Phosphatase 87 (34-104) U/L Total Creatine Kinase 34 (26-192) U/L Troponin I High Sens 4.7 (0-14) pg/ml C-Reactive Protein 2.28 H (0-0.5) mg/dl Total Protein 6.4 (6.0-8.3) gm/dl Albumin 3.5 (3.4-5.0) gm/dl Globulin 2.9 (2.5-4.0) gm/dl Albumin/Globulin Ratio 1.2 (0.9-2) Lipase 32 (11-82) U/L TSH 1.654 (0.300-4.500) uIu/ml Anaplasma Smear See Comment A. phagocytophilum DNA Pending Babesia Smear See Comment Babesia microti DNA PCR Pending Lyme Disease Screen Negative (Negative) Resident Activity Tracking Resident Involvement: Resident Care Provided Care Provided: Adult [facility] (4) Chronic otitis media Laterality: bilateral
[2024-02-21] MEDS: [UNRECOGNIZED DRUG - OTHER] PEG SCH (14:59)
[2024-02-21] MEDS: ENTERAL FORMULA PEG SCH (14:59)
[2024-02-21] MEDS: ADVANCED PROBIOTIC 625 MG CAPSULE PO SCH (17:51)
[2024-02-21] MEDS: ENOXAPARIN INJ 40 MG/0.4 ML SYR SQ SCH (17:51)
[2024-02-21] MEDS: VANCOMYCIN HCL 1,000 MG in SODIUM CHLORIDE 0.9% 250 ML IV SCH (17:52)
--- NOTE | 2024-02-21 19:28 | Billing Data ---
Date of Service February 21, 2024 Coding Level of Care Code 25683 INT INP/OBS CARE
[2024-02-21] MEDS: BANATROL TF 60 ML LIQUID PKT PEG SCH (21:19)
[2024-02-21] MEDS: traZODone HCL 50 MG TAB GT SCH (21:20)
[2024-02-21] MEDS: TUBE FEEDING WATER FLUSH PEG SCH (21:20)
[2024-02-21] MEDS: HYDROCORTISONE SOD 50 MG in SYRINGE 0 ML IV SCH (21:20)
--- NOTE | 2024-02-22 06:45 | Hospitalist Progress Note ---
Date of Service February 22, 2024 Assessment & Plan (1) Hyponatremia: Plan: Tiff is a 73F w/ PMH of chronic hyponatremia (baseline 132-134), microscopic colitis w/ chronic diarrhea, chronic sinusitis/otitis media a/w intranasal senechia and fistula formation s/p radiation, reflux, HLD, and arthritis who presented for abnormal outpatient labs. Patient is being admitted for hyponatremia and osteomyelitis management. She is PEG tube dependent for feedings at baseline. Acute Hyponatremia - Na 129 on admission. With associated lower extremity weakness and fatigue. Recent admission 02/13-02/17 for hyponatremia to 121, discharged at 138 - was feeling well at time of discharge - Urine studies: serum osm 255, urine osm 385, urine Na 82 - hypovolemic on exam - Presentation concerning for renal losses +/- SIADH, likely multifactorial - received 1L at maintenance rate. Repeat Na 130. Hold IVF at this time. Repeat AM cortisol 11.93. - Patient was on Solu-Cortef 50mg q12hr IV, will transition to oral hydrocortisone 10mg and follow sodium - Follow PEG tube saline flushes inpatient - potential contribution to Na level fluctuations - Na improved this AM 135. - Consider addition of salt tablets if Na does not stay in good range. Osteomyelitis of Clivus, Zygomatic arch, and Wall of Maxillary sinus -seen on initial imaging for headache -Face MRI: diffuse signal abnormality and fluid collection at the clivus. Concern for osteomyelitis with abscess formation. Progressed nondisplaced pathologic fracture of the clivus. 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 Suggests extension of infection. -Was considering patient transfer given extent of infection and abscess formation which may have needed drainage. Spoke with [facility] lead front desk agent (Dr. Arturo Medina) who reviewed the images closely with neuroradiology and compared them with previous imaging. They did agree with osteo however did not think there was an abscess formation but rather just a pocket of fluid possibly an extension from the sphenoid. The deterioration of the bone itself is a natural progression from her previous radiation. They did not think surgical intervention was necessary at this time. Even obtaining a clivus biopsy could cause more harm than benefit. As long as pt is stable and no systemic symptoms, advised to treat the osteomyelitis and follow up with them as an outpatient. -ID following -cont. cefepime, flagyl, vanc - blood cx pending - will tailor abx as much as possible to treat osteo however will be difficult without culture. Pt has h/o pseudomonal and staph infection in sinuses. -Oral/maxillary following - Nasal Ciprofloxacin, Gentamicin, and Dexamethasone rinses held Chronic Conditions: HLD: statin held Reflux: continue famotidine Hypothyroidism: continue levothyroxine Insomnia: continue trazodone Microscopic colitis: diarrhea resolved, stable FEN: NPO, all feeds through PEG Code status: Full Code DVT ppx: lovenox Dispo:med tele (2) Acute osteomyelitis of facial bone: (3) Chronic sinusitis: (4) Chronic otitis media: (5) Intranasal synechiae: (6) Esophageal dysphagia: (7) High cholesterol: (8) Microscopic colitis: (9) On tube feeding diet: (10) Presence of externally removable percutaneous endoscopic gastrostomy (PEG) tube: Admission and Anticipated Discharge Date Admission Date: February 21, 2024 Supervising Physician Co-Signing Physician Notes Attending Physician Supervision Note: I independently interviewed and examined the patient and verified the beltran history and physical, reviewed labs and image studies and agree with findings and care plan noted above. Feeling much better this am. able to go to the restroom without any body weakness. Headache - MRI findings are chronic as per discussion with [facility]. advised to treat osteomyelitis Osteomyelitis of Clivus, Zygomatic arch, and Wall of Maxillary sinus - continue IV abx. ID input appreciated. Hyponatremia - undifferentiated etiology. -random cortisol of 7 last admission while in acute stress setting and Received stress doses of steroids. -BP readings this admission are lower. -added stress dose for 24 hours then switch to low dose oral hydrocortisone - to be continued on discharge. -Na level improved to 135. -will need outpatient endocrine evaluation. Nutrition - via PEG Subjective Patient seen at the bedside doing well, improvement in symptoms today. She was concerned about steroid use saying that at home after steroid use she gets weak, especially in the legs, however when on the steroids here she feels increased strength. She was cautious about steroid use with its effect on bones as well. No overnight events. Review of Systems Review of Systems: As per HPI. Physical Exam Constitutional: WD/WN, vitals as above Respiratory: normal respiratory effort, lungs clear to auscultation Cardiovascular: RRR, no murmur, no edema Gastrointestinal (Abdomen): normal bowel sounds, soft, nontender, no hepatosplenomegaly Psychiatric: A+Ox3, euthymic affect Results & Data Results & Data Vital Signs (Past 12 Hours) Vital Signs Temp Pulse Pulse Resp BP Pulse Ox O2 Del Method 02/22/24 02:03 36.4 C L 68 18 103/69 98 Room Air 02/21/24 22:14 36.8 C 79 16 100/63 96 Room Air 02/21/24 21:56 83 02/21/24 20:30 Room Air 02/21/24 19:39 36.7 C 76 16 99/62 L 96 Room Air Resident Activity Tracking Resident Involvement: Resident Care Provided Care Provided: Adult Hospital Medicine (4) Chronic otitis media Laterality: bilateral
[2024-02-22 07:33] LABS: Eosinophils # (auto) 0.01 K/uL (0.00-0.50); Eosinophils % (auto) 0.2 %; Hematocrit (blood only) 29.9 % (37.0-47.0); Hemoglobin 9.9 g/dl (12.0-16.0); Immature Granulocytes # (auto) 0.04 K/uL (0.01-0.20); Immature Granulocytes % (auto) 0.7 %; Lymphocytes # (auto) 0.58 K/uL (1.20-3.40); Lymphocytes % (auto) 10.7 %; Mean Corpuscular Hemoglobin 30.5 pg (25.0-34.0); Mean Corpuscular Hgb Conc 33.1 g/dL (32.0-36.0); Mean Platelet Volume 8.5 fL (9.4-12.4); Monocytes % (auto) 3.7 %; Neutrophils # (auto) 4.58 K/uL (1.40-6.50); Neutrophils % (auto) 84.7 %; Platelet Count 235 K/uL (130-400); RDW Coefficient of Variation 14.3 % (11.5-14.5); RDW Standard Deviation 47.8 fL (36.4-46.3); Red Blood Count 3.25 M/uL (4.20-5.40); White Blood Count 5.41 K/ul (4.8-10.8)
[2024-02-22 09:32] LABS: Calcium 8.3 mg/dl (8.6-10.3); Potassium 4.2 mmol/L (3.5-5.1)
[2024-02-22 09:38] LABS: C Reactive Protein 2.4 mg/dl (0-0.5); Creatinine Clr Calc Pharmacy 85.4 ml/min; Est GFR (African American) 112.9 ml/min; Est GFR (Non-African American) 97.4 ml/min
--- NOTE | 2024-02-22 13:06 | Pharmacy Report ---
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 * Infectious Disease is consulted and recommended the above regimen * Patient does have a prior h/o sq cell CA ethmoid sinus, intranasal adhesions, chronic sinusitis, chronic otitis media. She does use ciprofloxacin and gentamicin nasal rinses routinely. * Pertinent microbiologic data includes: BLCXs are currently pending, negative Lyme screening and negative periph smear for babesia/anaplasma. 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 02/21: * Transfer to a tertiary facility was deferred as [facility] did not think there was an abscess formation but just a pocket of fluid, possibly an extension from the sphenoid and thus surgical intervention was not required. ENT did agree with presence of osteo however. * Blood cultures negative to date. Plan Vancomycin * Current regimen: 1000 mg IV every 12 hours * Random level obtained 02/22/24 resulted as 18.2 mcg/mL. This is predicted to achieve target AUC/TRISTAN of 400-600 mg/L.hr * Predicted AUC at steady state: 521 mg/L.hr * Continue 1000 mg IV every 12 hours * Repeat random level ordered for: 02/24/24 Pharmacy will continue to follow and will adjust dose/frequency as necessary. Thank you. Pharmacy has transitioned to AUC monitoring for vancomycin. AUC/TRISTAN is the preferred PK/PD target and is associated with decreased risk of nephrotoxicity compared to traditional trough targets.
[2024-02-22] MEDS: HYDROCORTISONE SOD 25 MG in SYRINGE 0 ML IV SCH (21:24)
[2024-02-23 06:16] LABS: Basophils # (auto) 0.01 K/uL (0.00-0.20); Basophils % (auto) 0.2 %; Eosinophils # (auto) 0.03 K/uL (0.00-0.50); Eosinophils % (auto) 0.7 %; Hematocrit (blood only) 28.2 % (37.0-47.0); Hemoglobin 9.2 g/dl (12.0-16.0); Immature Granulocytes # (auto) 0.02 K/uL (0.01-0.20); Immature Granulocytes % (auto) 0.4 %; Lymphocytes # (auto) 0.89 K/uL (1.20-3.40); Lymphocytes % (auto) 19.5 %; Mean Corpuscular Hemoglobin 30.3 pg (25.0-34.0); Mean Corpuscular Hgb Conc 32.6 g/dL (32.0-36.0); Mean Corpuscular Volume 92.8 fL (80.0-100.0); Mean Platelet Volume 8.6 fL (9.4-12.4); Monocytes # (auto) 0.39 K/uL (0.11-0.59); Monocytes % (auto) 8.5 %; Neutrophils # (auto) 3.23 K/uL (1.40-6.50); Neutrophils % (auto) 70.7 %; Platelet Count 233 K/uL (130-400); RDW Coefficient of Variation 14.4 % (11.5-14.5); RDW Standard Deviation 48.8 fL (36.4-46.3); Red Blood Count 3.04 M/uL (4.20-5.40); White Blood Count 4.57 K/ul (4.8-10.8)
[2024-02-23 06:51] LABS: BUN Creatinine Ratio 30.9 (10-20); Calcium 8.3 mg/dl (8.6-10.3); Creatinine Clr Calc Pharmacy 77.6 ml/min; Est GFR (African American) 109.4 ml/min; Est GFR (Non-African American) 94.4 ml/min; Potassium 4.3 mmol/L (3.5-5.1)
--- NOTE | 2024-02-23 07:11 | Hospitalist Progress Note ---
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 Patient is being admitted for hyponatremia and osteomyelitis management. She is PEG tube dependent for feedings at baseline. Acute Hyponatremia - Na 129 on admission, now 138 Recently admitted 02/13-02/17 for hyponatremia to 121 - Presentation concerning for renal losses +/- SIADH, likely multifactorial - S/p 1 L IVF - AM Cortisol 11.93, started on steroid therapy 02/19-02/21 Solucortef 50 mg Q12 02/21-02/22 Solucortef 25 mg Q12 02/22-02/23 Solucortef 12.5 mg Q12 02/23 Transition to PO Cortef 10 mg Q12, goal to be on PO Cortef daily & maintain Na level - Follow PEG flushes inpatient - Consider addition of salt tablets if Na remains unstable Osteomyelitis of Clivus, Zygomatic arch, and Wall of Maxillary Sinus - Noted on initial CT & characterized by Facial MRI Concern for osteomyelitis with abscess formation. Progressed nondisplaced pathologic fracture of the clivus. Edema/enhancement several areas including necktie stitcher spaces, pterygoid muscle, zygomatic arch, sinuses. Suggests extension of infection. - As long as pt is stable and no systemic symptoms, advised to treat the osteomyelitis and follow up with them ([facility]) as an outpatient. - ID following, appreciate recommendations Blood Culture NGTD - OMFS following, appreciate recommendations - Continue Cefepime, Flagyl, and Vancomycin Pt has h/o pseudomonal and staph infection in sinuses. - Home Nasal Ciprofloxacin, Gentamicin, and Dexamethasone rinses held Chronic Conditions: HLD: statin held Reflux: continue famotidine Hypothyroidism: continue levothyroxine Insomnia: continue trazodone Microscopic colitis: diarrhea resolved, stable FEN: NPO, all feeds through PEG Code status: Full Code DVT ppx: Lovenox Dispo:med tele (2) Acute osteomyelitis of facial bone: (3) Chronic sinusitis: (4) Chronic otitis media: (5) Intranasal synechiae: (6) Esophageal dysphagia: (7) High cholesterol: (8) Microscopic colitis: (9) On tube feeding diet: (10) Presence of externally removable percutaneous endoscopic gastrostomy (PEG) tube: Admission and Anticipated Discharge Date Admission Date: February 21, 2024 Supervising Physician Co-Signing Physician Notes Attending Physician Supervision Note: I independently interviewed and examined the patient and verified the beltran history and physical, reviewed labs and image studies and agree with findings and care plan noted above. No concerns. Feels ready to go home after the decision making tomorrow regarding osteomyelitis treatment. headache mostly resolved. Headache - MRI findings are chronic as per discussion with [facility]. advised to treat osteomyelitis Osteomyelitis of Clivus, Zygomatic arch, and Wall of Maxillary sinus - continue IV abx. ID input appreciated. Hyponatremia - undifferentiated etiology. -random cortisol of 7 last admission while in acute stress setting and Received stress doses of steroids. -BP readings this admission are lower. -added stress dose for 48 hours with slow wean then switch to low dose oral hydrocortisone - to be continued on discharge. -Na level improved to 138. -will need outpatient endocrine evaluation. Nutrition - via PEG Subjective 02/22: Tiff endorses ongoing improvement of her symptoms. She denies any facial/sinus pain, fever, chills, nausea, or emesis. Patient denies any ongoing leg weakness, lightheadedness, or headaches. Physical Exam Physical Exam: Gen: NAD, alert, interactive HEENT: Supple, no LAD, dry mucous membranes, no sinus TTP Resp:Non-labored, no wheezing/rhonchi/rales, CTAB CV:RRR, normal S1/S2, no M/R/G Abd: Soft, mildly-distended, no TTP, normoactive bowels, no masses, PEG tube intact Extr: 2+ dp bilaterally, no edema Neuro: Strength symmetric bilaterally, sensation intact Results & Data Results & Data Vital Signs (Past 12 Hours) Vital Signs Temp Pulse Pulse Resp BP Pulse Ox O2 Del Method 02/23/24 06:57 61 02/23/24 02:24 36.6 C 71 16 94/60 L 96 Room Air 02/22/24 23:14 36.4 C L 71 18 93/60 L 97 Room Air 02/22/24 22:22 68 02/22/24 20:45 Room Air 06/01/24 19:36 36.3 C L 74 18 96/62 L 97 Room Air Resident Activity Tracking Resident Involvement: Resident Care Provided Care Provided: Adult Hospital Medicine (4) Chronic otitis media Laterality: bilateral
[2024-02-23] MEDS ORDERED: HYDROCORTISONE 10 MG TAB PO SCH (09:00)
[2024-02-23] MEDS: HYDROCORTISONE SOD 10 MG in SYRINGE 0 ML IV SCH (10:05)
[2024-02-23] MEDS: HYDROCORTISONE SOD 12.5 MG in SYRINGE 0 ML IV SCH (21:16)
[2024-02-24 05:49] LABS: Basophils # (auto) 0.02 K/uL (0.00-0.20); Basophils % (auto) 0.3 %; Eosinophils # (auto) 0.08 K/uL (0.00-0.50); Eosinophils % (auto) 1.4 %; Hematocrit (blood only) 31.1 % (37.0-47.0); Hemoglobin 10.1 g/dl (12.0-16.0); Immature Granulocytes # (auto) 0.03 K/uL (0.01-0.20); Immature Granulocytes % (auto) 0.5 %; Lymphocytes % (auto) 27.9 %; Mean Corpuscular Hemoglobin 30.4 pg (25.0-34.0); Mean Corpuscular Hgb Conc 32.5 g/dL (32.0-36.0); Mean Corpuscular Volume 93.7 fL (80.0-100.0); Mean Platelet Volume 8.7 fL (9.4-12.4); Monocytes # (auto) 0.56 K/uL (0.11-0.59); Monocytes % (auto) 9.8 %; Neutrophils # (auto) 3.45 K/uL (1.40-6.50); Neutrophils % (auto) 60.1 %; Platelet Count 246 K/uL (130-400); RDW Coefficient of Variation 14.6 % (11.5-14.5); RDW Standard Deviation 49.9 fL (36.4-46.3); Red Blood Count 3.32 M/uL (4.20-5.40); White Blood Count 5.74 K/ul (4.8-10.8)
[2024-02-24 06:06] LABS: Calcium 8.7 mg/dl (8.6-10.3); Creatinine Clr Calc Pharmacy 68.8 ml/min; Est GFR (African American) 105.1 ml/min; Est GFR (Non-African American) 90.7 ml/min
--- NOTE | 2024-02-24 07:23 | Pharmacy Report ---
Pharmacy PK ABX Note - Date of Service February 24, 2024 - Assessment and Plan Assessment 02/20: * 73 year old F receiving VANCOMYCIN + CEFEPIME + METRONIDAZOLE IV for treatment of clivus osteomyelitis, possible meningitis. * Infectious Disease is consulted and recommended the above regimen * Patient does have a prior h/o sq cell CA ethmoid sinus, intranasal adhesions, chronic sinusitis, chronic otitis media. She does use ciprofloxacin and gentamicin nasal rinses routinely. * Pertinent microbiologic data includes: BLCXs are currently pending, negative Lyme screening and negative periph smear for babesia/anaplasma. 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 02/21: * Transfer to a tertiary facility was deferred as [facility] did not think there was an abscess formation but just a pocket of fluid, possibly an extension from the sphenoid and thus surgical intervention was not required. ENT did agree with presence of osteo however. * Blood cultures negative to date. 02/23: * Trough resulted at 17.1 mcg/mL this AM. Predicted AUC at steady state for this regimen is > 600 mg/L.hr which is supratherapeutic. * Vanc was documented on NOV as hung at 0519 with trough draw at 0524. Day shift RN not able to confirm if Vanc was truly running prior to lab draw. Therefore, unable to confirm the validity of this trough level. * Despite lab draw confusion, will empirically reduce vanc regimen today to target an AUC near 500 mg/L.hr. Repeat level on Saturday. * Remains on Cefepime and Metronidazole. Plan Vancomycin * Current regimen: 1000 mg IV every 12 hours * Random level obtained 02/24/24 resulted as 17.1 mcg/mL. This is supratherapeutic (see above regarding validity of this result). * Change dose to 750 mg IV every 12 hours. Predicted AUC at steady state: 485 mg/L.hr * Repeat random level ordered for: 02/26/24 Pharmacy will continue to follow and will adjust dose/frequency as necessary. Thank you. Pharmacy has transitioned to AUC monitoring for vancomycin. AUC/TRISTAN is the preferred PK/PD target and is associated with decreased risk of nephrotoxicity compared to traditional trough targets.
[2024-02-24] MEDS ORDERED: HYDROCORTISONE 10 MG TAB PO SCH (09:00)
--- NOTE | 2024-02-24 09:18 | Infectious Disease Progress Nt ---
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 Here she has been afebrile, BP stable. WBC 9.78. Cr 0.58. LFT wnl. UA negative. CTH with findings c/f OM of clivus. CTA head/neck negative. BL LE venous doppler neg. MRI face with diffuse signal abnormality with enhancement and a focal gas/fluid collection at the clivus measuring 22 x 17 mm c/f OM with abscess at clivus, likely due to extension from opacified sphenoid sinuses, associated nondisplaced pathologic fracture at base of clivus; edema and enhancement of bl stock manager spaces L>R involving bl pterygoid mm and left masseter muscle; abnormal signal and enhancement at junction of left zygomatic arch and lateral wall of left maxillary sinus c/f additional sites of OM; minimal dural enhancement at anterior frontal lobes c/f associated cerebritis/meningitis, no e/o intracranial abscess. She was given zosyn. ID consulted 02/20. Abx broadened to vanc/cefepime/flagyl. CRP 2.40. BCX ngtd. Case reviewed by primary team with [facility] and they agreed with osteomyelitis however they did not think there was an abscess, rather pocket of fluid possibly extension from sphenoid, deterioration of bone likely 2/2 prior XRT and no surgical intervention advised, including no biopsy of clivus due to more harm than benefit. Plan for empiric abx. Seen by OMFS and no areas where culture could be obtained. Unfortunately, we do not have any cultures that can help to narrow abx. Given her prior h/o pseudomonas and S aureus, I will continue coverage for those organisms. Though she has had just MSSA in the past, and though a MRSA screen could be done, correlation to OM would be difficult, and given the location of infection, I will be cautious and continue coverage for possible MRSA. Vancomycin can be changed to daptomycin. Anaerobic coverage is also included when sinuses are being considered as possible source. # OM of clivus bone with abscess # OM involving left zygomatic arch and lateral wall of left maxillary sinus # Frontal lobe enhancement c/f cerebritis/meningitis # Acute on chronic hyponatremia # h/o SCC of left neck and left ethmoid sinus s/p tx # h/o chronic sinusitis/otitis media with fistula on intranasal cipro/gent/dexa - [facility] changed vanc to daptomycin ~8mg/kg (400mg) IV daily (baseline CPK 19) - cont for 6 weeks - continue cefepime 2g IV q8h (can be 6g IV continuous infusion daily for ease of administration outpatient) - cont for 6 weeks - continue metronidazole 500mg q8h (can be changed to PO) may consider discontinuation after 3 weeks to avoid adverse effects - for osteomyelitis, duration is at least 6 weeks (starting 02/20, eot 04/02) - Monitor weekly CBC w diff, CMP, ESR, CRP, CPK while on IV abx - Follow up with local ID provider and ENT at [facility] - no statins while on daptomycin ID will discontinue active follow up at this time. Please do not hesitate to reconsult the Infectious Diseases service as needed. Viviana Rodriguez MD [facility], Division of Infectious Diseases [facility]: [phone] Admission and Anticipated Discharge Date Admission Date: February 21, 2024 Subjective Subsequent visit was provided via telemedicine using two-way real-time interactive telecommunication between the patient and the telemedicine provider. For the duration of the visit, the provider was performing the assessment from a different facility than the patient. This includesuse of bluetooth stethoscope forauscultationperformed by the telepresenter that the telemedicine provider can hear if described in the physical exam. [facility] contact information: Please call [facility] Call Center [phone]. (Phone Number For Physician Use Only) After establishing a telemedicine visit, patient was: Patient was verified with two unique identifiers, Patient/authorized rep acknowledged consent and understanding and Gave permission to continue telehealth session Time Spent with Patient: Subsequent => 55 min No diarrhea. Had a headache earlier but this is resolved. No sinus pain, says her face muscles feel better. Physical Exam Physical Exam: General: Awake, alert, no acute distress HEENT: NC/AT, EOMI, mmm Neck: supple, no ttp of the neck Lungs: respirations non-labored Heart: nl peripheral perfusion Abdomen: soft, NT/ND Back: no spinal tenderness Skin: no rash Neuro: moving all extremities Results & Data Vital Signs (Past 12 Hours) Vital Signs Temp Pulse Pulse Resp BP BP Pulse Ox 02/24/24 07:41 36.9 C 65 17 102/65 97 02/24/24 07:20 02/24/24 07:14 62 02/24/24 02:14 36.6 C 69 16 92/58 L 97 02/23/24 23:10 64 95/58 L 02/23/24 22:43 36.4 C L 71 16 84/45 L 96 02/23/24 22:01 70 O2 Del Method 02/24/24 07:41 Room Air 02/24/24 07:20 Room Air 02/24/24 07:14 02/24/24 02:14 Room Air 02/23/24 23:10 02/23/24 22:43 Room Air 02/23/24 22:01 Laboratory Results Labs reviewed. Diagnostic Findings Imaging reviewed.
[2024-02-24] MEDS: DAPTOmycin 400 MG in SYRINGE 0 ML IV SCH (10:41)
--- NOTE | 2024-02-24 15:20 | Hospitalist Progress Note ---
Date of Service February 24, 2024 Assessment & Plan (1) Acute osteomyelitis of facial bone: (2) Hyponatremia: Plan (1) Hyponatremia: Plan: Tiff is a 73F w/ PMH of chronic hyponatremia (baseline 132-134), microscopic colitis w/ chronic diarrhea, chronic sinusitis/otitis media a/w intranasal senechia and fistula formation s/p radiation, reflux, HLD, and arthritis who presented for abnormal outpatient labs. Patient is being admitted for hyponatremia and osteomyelitis management. She is PEG tube dependent for feedings at baseline. Acute Hyponatremia - Recently admitted 02/13-02/17 for hyponatremia to 121 - Na 129 on admission, most recent 137. - S/P 1 L IVF -On chronic steroids secondary to giant cell arteritis and microscopic colitis. Presentation is concerning for adrenal insufficiency. - AM Cortisol 11.93, started on steroid therapy 02/19-02/21 Solucortef 50 mg Q12 02/21-02/22 Solucortef 25 mg Q12 02/22-02/23 Solucortef 12.5 mg Q12 02/23 Transitioned to PO Cortef (hydrocortisone) 10 mg Q12. Goal to be on PO Cortef daily & maintain Na level. - Follow PEG flushes inpatient - Consider addition of salt tablets if Na remains unstable -Will consult endocrinology to determine optimal steroid dose for discharge. Osteomyelitis of Clivus, Zygomatic arch, and Wall of Maxillary Sinus - Noted on initial CT & characterized by Facial MRI. Progressed nondisplaced pathologic fracture of the clivus. Edema/enhancement several areas including steam distribution supervisor spaces, pterygoid muscle, zygomatic arch, sinuses. 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 -Appreciate ID consult. Per note, "Case reviewed by primary team with [facility] and they agreed with osteomyelitis. However they did not think there was an abscess, rather pocket of fluid possibly extension from sphenoid. Deterioration of bone likely 2/2 prior XRT. No surgical intervention advised, including no biopsy of clivus due to more harm than benefit. Plan for empiric abx. Seen by OMFS and no areas where culture could be obtained. Unfortunately, we do not have any cultures that can help to narrow abx. Given her prior h/o pseudomonas and S aureus, I will continue coverage for those organisms. Though she has had just MSSA in the past, and though a MRSA screen could be done, correlation to OM would be difficult, and given the location of infection, I will be cautious and continue coverage for possible MRSA. Vancomycin can be changed to daptomycin. Anaerobic coverage is also included when sinuses are being considered as possible source. -Switch vancomycin to daptomycin per ID recommendations. Continue cefepime and flagyl. - OMFS following, appreciate recommendations - As long as pt is stable and no systemic symptoms, advised to treat the osteomyelitis and follow up with [facility] as an outpatient. Patient will contact [facility] for appointment. - In the process of coordinating home health services for home IV antibiotics. Per case management, the goal is to have services set up on or Sat. - Home Nasal Ciprofloxacin, Gentamicin, and Dexamethasone rinses held FEN: NPO, all feeds through PEG Code status: Full Code DVT ppx: Lovenox Dispo:med tele Case management: Would be able to start home health services tomorrow. Can't do q8 push, either infusion or easy pump Admission and Anticipated Discharge Date Admission Date: February 21, 2024 Supervising Physician Co-Signing Physician Notes I personally examined the patient and verified all beltran points of history and exam, discussed case, and agree with decision making with Adryan Maciel MS4 Physically feels okay but anxious about the new changesparticularly going home with IV antibiotics, but also with the steroid dosing. We discussed things both big picture as well as concretely, and she feels more comfortable with the plan. Answered all questions the best my ability and to her satisfaction. Discussed with case management as wellinput greatly appreciated. Vitals noted, in general she is awake and alert pleasant no distress. HEENT normocephalic atraumatic mucous membranes moist. Breathing unlabored no accessory muscle use good effort. Skin without rashes pallor or icterus. Neuro without focal deficits. Headache - MRI findings are chronic as per discussion with [facility]. advised to treat osteomyelitisSee below Osteomyelitis of Clivus, Zygomatic arch, and Wall of Maxillary sinus - ID input greatly appreciatedgetting set up with IV antibiotics for home. Hyponatremia - At last admission, she had much worse diarrhea, and the working diagnosis was that her hyponatremia was from salt wasting from her diarrhea, but that the diarrhea was possibly a flareup of her microscopic colitis made possible in part by the weaning of her steroids. Increasing steroids improved both the diarrhea and her sodium. Now, however, once the steroids have been weaned off again, her sodium dropped yet againbut this time without accompanying diarrheamaking it seem more plausible that she has a degree of adrenal insufficiency. Currently being maintained on hydrocortisonewe will continue this for now. Reached out to her PCP as far as ongoing outpatient management versus referral to endocrine.. 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 Patient was admitted for hyponatremia and osteomyelitis management. She is PEG tube dependent for feedings at baseline. Overnight events: Patient felt like her legs were weak this morning when she got up to use the restroom. She was able to ambulate successfully without falls at that time. Pain control: Patient still having occasional intermittent headaches. Pain has decreased since starting the antibiotics. She does not currently have any pain. Bowel/bladder concerns: No Nutritional Status: PEG tub Mobility: Able to ambulate. Patient is concerned about the discharge plan, specifically how she will receive antibiotics at home. She has had home health nurses come in the past. Chronic Conditions: HLD: statin held Reflux: continue famotidine Hypothyroidism: continue levothyroxine Insomnia: continue trazodone Microscopic colitis: diarrhea resolved, stable Review of Systems Review of Systems: See HPI for pertinent positives & negatives. A total of 10 systems reviewed and were otherwise negative. Physical Exam Physical Exam: Constitutional: Well-appearing, no acute distress. Daughter sitting at bedside. HEENT: NCAT, no conjunctival injection. No tenderness to palpation across the maxillary or frontal sinus. CV: Regular rhythm, no murmur appreciated, extremities well-perfused, no LE edema. Resp: CTABL, no wheezes/rales/rhonchi appreciated,no increased work of breathing GI: Soft, nondistended, nontender, BS normoactive MSK: no gross deformities appreciated Skin: warm, dry, no rash appreciated Neuro: alert, oriented, no focal neurologic deficit appreciated. Hearing aids in place bilaterally. Results & Data Results & Data Vital Signs (Past 12 Hours) Vital Signs Temp Pulse Pulse Resp BP BP Pulse Ox 02/24/24 07:14 62 02/24/24 02:14 97.9 F 69 16 92/58 L 97 02/23/24 23:10 64 95/58 L 02/23/24 22:43 97.5 F L 71 16 84/45 L 96 02/23/24 22:01 70 02/23/24 21:10 02/23/24 19:23 97.9 F 72 18 120/78 98 O2 Del Method 02/24/24 07:14 02/24/24 02:14 Room Air 02/23/24 23:10 02/23/24 22:43 Room Air 02/23/24 22:01 02/23/24 21:10 Room Air 02/23/24 19:23 Room Air Laboratory Results Laboratory Results - last 24 hr 02/24/24 05:24 WBC 5.74 RBC 3.32 L Hgb 10.1 L Hct 31.1 L MCV 93.7 MCH 30.4 MCHC 32.5 RDW Std Deviation 49.9 H RDW Coeff of Lucien 14.6 H Plt Count 246 MPV 8.7 L Immature Gran % (Auto) 0.5 Neut % (Auto) 60.1 Lymph % (Auto) 27.9 Bladen % (Auto) 9.8 Eos % (Auto) 1.4 Baso % (Auto) 0.3 Neut # (Auto) 3.45 Lymph # (Auto) 1.60 Bladen # (Auto) 0.56 Eos # (Auto) 0.08 Baso # (Auto) 0.02 Immature Gran # (Auto) 0.03 Sodium 137 Potassium 4.0 Chloride 105 Carbon Dioxide 28 Anion Gap 4 BUN 18 Creatinine 0.62 Est Cr Clr Drug Dosing 68.8 Est GFR ( Amer) 105.1 Est GFR (Non-Af Amer) 90.7 BUN/Creatinine Ratio 29.0 H Glucose 83 Calcium 8.7 Total Creatine Kinase 19 L Random Vancomycin 17.1 Medications Administered Current Inpatient Medications Azelastine HCl (Azelastine Hcl 0.1% Nasal 200 Sprays/27,400 Mcg Btl) 2 sprays NA BID KHALIDA Stop: 03/22/24 08:59 Last Admin: 02/23/24 21:17 Dose: 2 sprays Banana Based Medical Food (Banatrol Tf 60 Ml Liquid Pkt) 60 ml PEG BID KHALIDA Stop: 03/22/24 20:59 Last Admin: 02/23/24 21:14 Dose: Not Given Cetirizine HCl (Cetirizine Hcl 10 Mg Tablet) 10 mg PO HS KHALIDA Stop: 03/22/24 08:59 Last Admin: 02/23/24 21:56 Dose: 10 mg Enoxaparin Sodium (Enoxaparin Inj 40 Mg/0.4 Ml Syr) 40 mg SQ Q24H KHALIDA Stop: 03/22/24 15:59 Last Admin: 02/23/24 17:07 Dose: 40 mg Famotidine (Famotidine Susp 40 Mg/5 Ml Udp) 40 mg NG BID KHALIDA Stop: 03/22/24 08:59 Last Admin: 02/23/24 21:16 Dose: 40 mg Fluticasone Propionate (Fluticasone Propionate Na Spr 16 Gm Btl) 2 sprays NA QAM KHALIDA Stop: 03/22/24 08:59 Last Admin: 02/23/24 08:16 Dose: 2 sprays Guaifenesin/Dextromethorphan (Guaifenesin/Dextrom Syrup 100mg/10mg 5ml Udc) 5 ml PO DAILY KHALIDA Stop: 03/22/24 10:14 Last Admin: 02/23/24 08:14 Dose: 5 ml Hydrocortisone (Hydrocortisone 10 Mg Tab) 10 mg PO BID KHALIDA Stop: 03/25/24 20:59 Cefepime HCl 2,000 mg/ Syringe 20 mls @ 5 mls/min IV Q8H KHALIDA; Protocol Stop: 03/02/24 10:29 Last Admin: 02/24/24 02:28 Dose: 5 mls/min Metronidazole (Flagyl) 500 mg in 100 mls @ 100 mls/hr IV Q8H KHALIDA; Protocol Stop: 03/02/24 10:59 Last Infusion: 02/24/24 03:28 Dose: Infused Hydrocortisone Sodium (Succinate 12.5 mg/ Syringe) 0.25 mls @ 4 mls/min IV Q12 KHALIDA Stop: 02/24/24 09:01 Last Admin: 02/23/24 21:16 Dose: 4 mls/min Vancomycin HCl 750 mg/ Sodium (Chloride) 265 mls @ 200 mls/hr IV Q12H COUNTS INCLUDE 234 BEDS AT THE [facility] Stop: 03/05/24 17:59 Ipratropium Ligonier (Ipratropium [place] Nasal [place] 0.06% 15ml) 1 sprays KT BID PRN PRN Reason: allergies Stop: 03/22/24 04:17 Lactobacillus Acidophilus (Advanced Probiotic 625 Mg Capsule) 1,250 mg PO DAILY COUNTS INCLUDE 234 BEDS AT THE [facility] Stop: 03/22/24 14:44 Last Admin: 02/23/24 08:14 Dose: 1,250 mg Levothyroxine Sodium (Levothyroxine Sodium 50 Mcg Tablet) 50 mcg PO DAILYBB COUNTS INCLUDE 234 BEDS AT THE [facility] Stop: 03/22/24 06:29 Last Admin: 02/24/24 05:19 Dose: 50 mcg Miscellaneous (Autologous 20%~Order Awaiting Action) 1 each N/A QS COUNTS INCLUDE 234 BEDS AT THE [facility] Stop: 03/22/24 07:59 Last Admin: 02/23/24 22:34 Dose: Not Given Miscellaneous (Estrace Vag~Order Awaiting Action) 1 each N/A QS COUNTS INCLUDE 234 BEDS AT THE [facility] Stop: 03/22/24 07:59 Last Admin: 02/23/24 22:34 Dose: Not Given Miscellaneous (Trimo-Anne~Order Awaiting Action) 1 each N/A QS COUNTS INCLUDE 234 BEDS AT THE [facility] Stop: 03/22/24 07:59 Last Admin: 02/23/24 22:34 Dose: Not Given Miscellaneous (Varenicline~Order Awaiting Action) 1 each N/A QS COUNTS INCLUDE 234 BEDS AT THE [facility] Stop: 03/22/24 07:59 Last Admin: 02/23/24 22:34 Dose: Not Given Miscellaneous Information (Vancomycin Consult Active) 1 each N/A UD PRN PRN Reason: Consult Stop: 03/22/24 09:49 Mupirocin (Mupirocin 2% Oint 22 Gm Tube) 1 appln TOP BID PRN PRN Reason: nasal dryness or bleeding Stop: 03/22/24 03:38 Nutritional Formula (Patient's Own Enteral Feeding * Jevity 1.5) 237 ml PEG QID COUNTS INCLUDE 234 BEDS AT THE [facility] Stop: 03/22/24 12:59 Last Admin: 02/23/24 21:56 Dose: 237 ml Sterile Water (Tube Feeding Water Flush) 120 ml PEG QID COUNTS INCLUDE 234 BEDS AT THE [facility] Stop: 03/22/24 20:59 Last Admin: 02/23/24 21:57 Dose: 120 ml Trazodone HCl (Trazodone Hcl 50 Mg Tab) 50 mg [facility] Stop: 03/22/24 20:59 Last Admin: 02/23/24 21:56 Dose: 50 mg Vitamin D (Cholecalciferol 25 Mcg (1000 Units) Tab) 12.5 mcg GT [facility] Stop: 03/22/24 08:59 Last Admin: 02/23/24 08:14 Dose: 12.5 mcg
--- NOTE | 2024-02-24 16:49 | Billing Data ---
Date of Service February 24, 2024 Coding Level of Care Code 56044 SUB INP/OBS CARE
[2024-02-24] MEDS ORDERED: VANCOMYCIN HCL 750 MG in SODIUM CHLORIDE 0.9% 250 ML IV SCH (18:00)
[2024-02-24] MEDS: HYDROCORTISONE 10 MG TAB PO SCH (20:54)
[2024-02-25 07:00] LABS: Basophils # (auto) 0.03 K/uL (0.00-0.20); Basophils % (auto) 0.6 %; Eosinophils # (auto) 0.13 K/uL (0.00-0.50); Eosinophils % (auto) 2.5 %; Hematocrit (blood only) 29.6 % (37.0-47.0); Hemoglobin 9.5 g/dl (12.0-16.0); Immature Granulocytes # (auto) 0.03 K/uL (0.01-0.20); Immature Granulocytes % (auto) 0.6 %; Lymphocytes # (auto) 1.35 K/uL (1.20-3.40); Lymphocytes % (auto) 26.2 %; Mean Corpuscular Hemoglobin 30.4 pg (25.0-34.0); Mean Corpuscular Hgb Conc 32.1 g/dL (32.0-36.0); Mean Corpuscular Volume 94.6 fL (80.0-100.0); Mean Platelet Volume 8.6 fL (9.4-12.4); Monocytes # (auto) 0.59 K/uL (0.11-0.59); Monocytes % (auto) 11.5 %; Neutrophils # (auto) 3.02 K/uL (1.40-6.50); Neutrophils % (auto) 58.6 %; Platelet Count 242 K/uL (130-400); RDW Coefficient of Variation 14.7 % (11.5-14.5); RDW Standard Deviation 50.5 fL (36.4-46.3); Red Blood Count 3.13 M/uL (4.20-5.40); White Blood Count 5.15 K/ul (4.8-10.8)
[2024-02-25 07:11] LABS: Albumin Globulin Ratio 1.2 (0.9-2); BUN Creatinine Ratio 28.6 (10-20); Bilirubin,Total 0.3 mg/dl (0.2-1.0); Calcium 8.1 mg/dl (8.6-10.3); Creatinine Clr Calc Pharmacy 67.8 ml/min; Est GFR (African American) 104.6 ml/min; Est GFR (Non-African American) 90.2 ml/min; Globulin 2.5 gm/dl (2.5-4.0); Potassium 4.1 mmol/L (3.5-5.1); Total Protein 5.5 gm/dl (6.0-8.3)
[2024-02-25] MEDS: HYDROCORTISONE 10 MG TAB PO SCH ×2 (08:43→15:44)
--- NOTE | 2024-02-25 09:57 | Hospitalist Progress Note ---
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 Patient is being admitted for hyponatremia and osteomyelitis management. She is PEG tube dependent for feedings at baseline. Acute Hyponatremia - Recently admitted 02/13-02/17 for hyponatremia to 121 - Na 129 on admission, most recent 138 (6 -On chronic steroids secondary to giant cell arteritis and microscopic colitis. Presentation is concerning for adrenal insufficiency. - AM Cortisol 11.93, started on steroid therapy 02/19-02/21 Solucortef 50 mg Q12 02/21-02/22 Solucortef 25 mg Q12 02/22-02/23 Solucortef 12.5 mg Q12 02/23 Transitioned to PO Cortef (hydrocortisone) 10 mg Q12. Goal to be on PO Cortef daily & maintain Na level. - Follow PEG flushes inpatient -Will consult endocrinology to determine optimal steroid dose for discharge. Osteomyelitis of Clivus, Zygomatic arch, and Wall of Maxillary Sinus - Noted on initial CT & characterized by Facial MRI. Progressed nondisplaced pathologic fracture of the clivus. Edema/enhancement several areas including security technician spaces, pterygoid muscle, zygomatic arch, sinuses. 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 -Appreciate ID consult: -Switch vancomycin to daptomycin ~8mg/kg (400mg) IV daily (baseline CPK 19) - cont for 6 weeks -Continue cefepime 2g IV q8h (can be 6g IV continuous infusion daily for ease of administration outpatient) - cont for 6 weeks -Continue metronidazole 500mg q8h (can be changed to PO) may consider discontinuation after 3 weeks to avoid adverse effects -Monitor weekly with outpatient weekly CBC w diff, CMP, ESR, CRP, CPK while on IV abx - As long as pt is stable and no systemic symptoms, advised to treat the osteomyelitis and follow up with [facility] as an outpatient. Patient will contact [facility] for appointment. - PICC line will be placed today for home antibiotic treatment. - In the process of coordinating home health services for home IV antibiotics. Per case management, the goal is to have services set up hopefully by tomorrow. - Home Nasal Ciprofloxacin, Gentamicin, and Dexamethasone rinses held FEN: NPO, all feeds through PEG Code status: Full Code DVT ppx: Lovenox Home meds held: Nasal Ciprofloxacin, Gentamicin, and Dexamethasone rinses, statin Case management: Would be able to start home health services tomorrow Dispo:med tele Admission and Anticipated Discharge Date Admission Date: February 21, 2024 Supervising Physician Co-Signing Physician Notes I personally examined the patient and verified all beltran points of history and exam, discussed case, and agree with decision making with Adryan Maciel MS4 Being educated on home IV antibiotics whenever I enter the roomgetting information, she is much relieved about how she will be able to do at home. Answered all questions the best my ability, greatly appreciate home care team and case management assistance as well. No other new complaints today. Vitals noted, in general she is awake and alert pleasant no distress. HEENT normocephalic atraumatic mucous membranes moist. Breathing unlabored no accessory muscle use good effort. Skin without rashes pallor or icterus. Neuro without focal deficits. Headache - MRI findings are chronic as per discussion with [facility]. advised to treat osteomyelitisSee below Osteomyelitis of Clivus, Zygomatic arch, and Wall of Maxillary sinus - ID input greatly appreciatedgetting set up with IV antibiotics for home. Hopefully home tomorrow. Hyponatremia - At last admission, she had much worse diarrhea, and the working diagnosis was that her hyponatremia was from salt wasting from her diarrhea, but that the diarrhea was possibly a flareup of her microscopic colitis made possible in part by the weaning of her steroids. Increasing steroids improved both the diarrhea and her sodium. Now, however, once the steroids have been weaned off again, her sodium dropped yet againbut this time without accompanying diarrheamaking it seem more plausible that she has a degree of adrenal insufficiency. Currently being maintained on hydrocortisonewe will continue this for now. PCP notes that she will be able to manage this for now, but would appreciate endocrine referral. 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 Patient was admitted for hyponatremia and osteomyelitis management. She is PEG tube dependent for feedings at baseline. Overnight events: N/A Patient did not have a repeat of leg weakness while trying to use the bathroom. She does feel like she has been sitting for too long and would like to be able to get up and walk around more. She has been able to ambulate successfully without difficulty for the past 2 days. Pain control: No headaches over past 24 hours. She endorses some minor swelling over the left maxillary area, but no facial pain. Bowel/bladder concerns: No Nutritional Status: PEG tub Mobility: Patient felt like her legs were weak this morning when she got up to use the restroom. She was able to ambulate successfully without falls at that time. Patient is concerned about the discharge plan, specifically how she will receive antibiotics at home. She has many lingering questions and feels overwhelmed with the uncertainty of the plan. She thinks that the nursing team will be providing a video for her on how to administer the antibiotics, and knows she will feel better once she knows what to do (as this is what happened when she got the PEG tube placed). She thinks that having written instructions would be beneficial. She states that her daughter (who is a PA) is leaving for a vacation to [place] for 9 days, which is adding to her anxiety. She is also concerned about what to do with the antibiotics when she has to travel to [place] for medical appointments if the meds have to be refrigerated. Chronic Conditions: HLD: statin held Reflux: continue famotidine Hypothyroidism: continue levothyroxine Insomnia: continue trazodone Microscopic colitis: diarrhea resolved, stable Review of Systems Review of Systems: See HPI for pertinent positives & negatives. A total of 10 systems reviewed and were otherwise negative. Physical Exam Physical Exam: Constitutional: Well-appearing, no acute distress. sitting at bedside. HEENT: NCAT, no conjunctival injection. No tenderness to palpation across the maxillary or frontal sinus. CV: Regular rhythm, no murmur appreciated, extremities well-perfused, no LE edema. Resp: CTABL, no wheezes/rales/rhonchi appreciated,no increased work of breathing GI: Soft, nondistended, nontender, BS normoactive MSK: no gross deformities appreciated Skin: warm, dry, no rash appreciated Neuro: alert, oriented, no focal neurologic deficit appreciated. Hearing aids in place bilaterally. Results & Data Results & Data Vital Signs (Past 12 Hours) Vital Signs Temp Pulse Pulse Resp BP BP Pulse Ox 02/25/24 07:45 97.5 F L 75 18 121/72 98 02/25/24 07:27 62 02/25/24 02:36 97.7 F 69 16 106/67 97 02/24/24 22:51 02/24/24 22:31 97.7 F 75 16 97/61 L 97 02/24/24 22:00 78 O2 Del Method 02/25/24 07:45 Room Air 02/25/24 07:27 02/25/24 02:36 Room Air 02/24/24 22:51 Room Air 02/24/24 22:31 Room Air 02/24/24 22:00
--- NOTE | 2024-02-25 16:08 | Billing Data ---
Date of Service February 25, 2024 Coding Level of Care Code 80890 SUB INP/OBS CARE
[2024-02-26 04:42] LABS: Babesia microti DNA Not Detected (Not Detected)
[2024-02-26] MEDS ORDERED: VANCOMYCIN LEVEL ONE (05:30)
--- NOTE | 2024-02-26 06:44 | Discharge Summary ---
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 Patient is being admitted for hyponatremia and osteomyelitis management. She is PEG tube dependent for feedings at baseline. Patient was recently admitted 02/13-02/17 for hyponatremia. She was discharged home feeling well, but notes that Saturday she started experiencing increased weakness in her legs (similar to how she had presented before). 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 She notes that she presents monthly for washouts, but daily uses Ciprofloxacin and Gentamicin/Dexamethasone rinses as an infection prevention measure. In addition to leg weakness, patient notes that she has intermittent upper neck pain at the base of her skull and approximately 2 weeks ago had an episode of left sided facial swelling and redness, which self resolved. She does note that occasionally she experiences right sided ear pain. Patient denies fevers, chills, headaches, vision changes, nausea, emesis, abdominal pain, dysuria, frequency, or diarrhea. Patient notes that she does 6 fluid ounce flushes TID through her PEG tube, but that on warmer days she adds an additional 8 ounce flush. She had two days that were >80 degrees and she added the additional flushes. ED: [facility] Admission Exam Per Admitting Provider General: no acute distress; hoarse voice; non-toxic appearing; frail appearing; cooperative; SpO2 98% on RA HEENT: normocephalic, atraumatic; no scleral icterus; PERRLA w/ EOMs intact; dry mucous membrane; white pocket (intranasal synechiae) behind left upper molars; vision and hearing grossly intact Neck: supple; no lymphadenopathy; trachea midline Skin: warm, dry without signs of tenting; no cyanosis; no rashes, bruising, lesions, or erythema noted CV: chest wall NTP; RRR; S1/S2 normal; no murmurs/rubs/gallops; pulses intact and symmetric at radial, DP, and PT Lungs: no acute respiratory distress; symmetrical chest wall expansion; clear breath sounds across all lung conley w/o adventitious sounds; no wheezing ABD: Soft, NTP in all 4 quadrants and around PEG tube; PEG tube is without signs of erythema, drainage, or infection; BS present; no rebound/guarding; no distention MSK: no tics or fasciculations; no edema noted in the LEs b/l, nonerythematous; 5/5 strength in lower extremities when lifting supine Neuro: A&Ox3; normal mood and affect; fluent speech; no focal deficits; sensation grossly intact in the LEs b/l Principal Diagnosis Acute osteomyelitis of facial bone Discharge Exam Constitutional: Well-appearing, no acute distress. sitting at bedside. HEENT: NCAT, no conjunctival injection. No tenderness to palpation across the maxillary or frontal sinus. CV: Regular rhythm, no murmur appreciated, extremities well-perfused, no LE edema. Resp: CTABL, no wheezes/rales/rhonchi appreciated,no increased work of breathing GI: Soft, nondistended, nontender, BS normoactive MSK: no gross deformities appreciated Skin: warm, dry, no rash appreciated Neuro: alert, oriented, no focal neurologic deficit appreciated. Hearing aids in place bilaterally. Discharge Data Allergies Allergy/AdvReac Type Severity Reaction Status Date / Time budesonide Allergy Severe Dyspnea, Verified 02/20/24 21:56 irritability, swelling sucralfate Allergy Severe Dyspnea Verified 02/20/24 21:56 adhesive Allergy Intermediate Rash Verified 02/20/24 21:56 amoxicillin [From Augmentin] AdvReac Intermediate Diarrhea Verified 02/20/24 21:56 cefadroxil AdvReac Intermediate Gastrointestinal Verified 02/20/24 21:56 Upset clavulanic acid AdvReac Intermediate Diarrhea Verified 02/20/24 21:56 [From Augmentin] diclofenac AdvReac Intermediate Headache Verified 02/20/24 21:56 oxycodone AdvReac Intermediate Hallucinati Verified 02/20/24 21:56 ons Penicillins AdvReac Intermediate Gastrointestinal Verified 02/20/24 21:56 Upset tramadol AdvReac Intermediate Syncopal Verified 02/20/24 21:56 episode escitalopram [From Lexapro] AdvReac Mild nausea Verified 02/20/24 21:56 Consultations 02/21/24 01:56 ED Decision to Admit Stat 02/21/24 07:32 Consult Oromaxillofacial Surgery Routine 02/21/24 07:34 Consult Infectious Diseases Routine Ordered Studies 02/20/24 21:38 CT head/brain wo con Stat CTA head w con [CT angio head w con] Stat CTA neck with con [CT angio neck with con] Stat US venous doppler LE BI Stat 02/21/24 02:25 MRI fa Chest X-Ray 02/20/24 21:38 XR chest 1V portable CLINICAL HISTORY: Chest pain, nonspecific TECHNIQUE: Single frontal radiograph of the chest was obtained. Comparison: Comparison is made to chest radiograph 01/08/2024 FINDINGS: No lines and tubes are seen. The cardiomediastinal silhouette is normal. The lungs are clear. No evidence of pleural effusion or pneumothorax. IMPRESSION: No acute chest disease. ACT 112: Negative or not required by law. Electronically signed by: Armand Mclain M.D. 02/21/2024 8:[address] 02/20/24 21:38 CR Exam(s): CT HEAD Without Contrast EXAM: CT Head Without Intravenous Contrast CLINICAL HISTORY: Reason for exam: Headache, weakness. TECHNIQUE: Axial computed tomography images of the head/brain without intravenous contrast. CTDI is 31.85 mGy and DLP is 938.45 mGy-cm. Automated exposure control was utilized for the study. A dose lowering technique was utilized adhering to the principles of ALARA. COMPARISON: Comparison is made to prior brain MRI from June 07, [address] scan of the paranasal sinuses from May 10, 2017... FINDINGS: Brain: There is encephalomalacia and gliosis of the anterior inferior frontal lobes, likely the sequelae of remote prior trauma. No hemorrhage. No significant white matter disease. No edema. Ventricles: Mild ventriculomegaly. Bones/joints: There is heterogeneous appearance of the clivus with intraosseous air bubbles and large AP lucency through the bone.. Incomplete fusion of the posterior ring of C1. No acute fracture. Soft tissues: There is a large bowl of the adjacent to the soft tissues adjacent to the left foramen ovale. Sinuses: Chronic left maxillary, right ethmoid and sphenoid sinusitis. Left endoscopic sinus surgery. Mastoid air cells: Bilateral mastoid effusions with right middle ear effusion. IMPRESSION: No evidence of acute intracranial pathology. 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 Recommend MRI of the facial bones with and without contrast for further evaluation. Communications: Verify Receipt Electronically signed by: Nadya Steel MD 02/21/24 01:05 AM Head CTA 02/20/24 21:38 Exam(s): CTA HEAD With Contrast IV Amt: 119 ml optiray 320 EXAM: CT Angiography Head With Intravenous Contrast CLINICAL HISTORY: Reason for exam: Headache, weakness. TECHNIQUE: Axial computed tomographic angiography images of the head with intravenous contrast. CTDI is 31.85 mGy and DLP is 938.45 mGy-cm. Automated exposure control was utilized for the study. A dose lowering technique was utilized adhering to the principles of ALARA. MIP reconstructed images were created and reviewed. CONTRAST: Patient received 119 ml optiray 320 of IV contrast COMPARISON: Comparison made to prior CT angiography of the head from August 06, 2021. FINDINGS: The dural venous sinuses are patent. Right internal carotid artery: No acute findings. Intracranial segment is patent with no significant stenosis. No aneurysm. Right anterior cerebral artery: Unremarkable. No occlusion or significant stenosis. No aneurysm. Right middle cerebral artery: Unremarkable. No occlusion or significant stenosis. No aneurysm. Right posterior cerebral artery: Unremarkable. No occlusion or significant stenosis. No aneurysm. Right vertebral artery: Unremarkable as visualized. Left internal carotid artery: No acute findings. Intracranial segment is patent with no significant stenosis. No aneurysm. Left anterior cerebral artery: Unremarkable. No occlusion or significant stenosis. No aneurysm. Left middle cerebral artery: Unremarkable. No occlusion or significant stenosis. No aneurysm. Left posterior cerebral artery: Unremarkable. No occlusion or significant stenosis. No aneurysm. Left vertebral artery: Unremarkable as visualized. Basilar artery: Unremarkable. No occlusion or significant stenosis. No aneurysm. IMPRESSION: Negative CT angiogram of the head. Electronically signed by: Nadya Steel MD 02/21/24 00:51 AM Neck CTA 02/20/24 21:38 Exam(s): CTA NECK With Contrast IV Amt: 119 ml optiray 320 EXAM: CT Angiography Neck With Intravenous Contrast CLINICAL HISTORY: Reason for exam: Headache, weakness. TECHNIQUE: Routine carotid CT angiography protocol was performed with intravenous contrast. NASCET criteria using the distal ICAs for comparison were used for evaluation of stenoses. CTDI is 31.85 mGy and DLP is 938.45 mGy-cm. Automated exposure control was utilized for the study. A dose lowering technique was utilized adhering to the principles of ALARA. MIP reconstructed images were created and reviewed. CONTRAST: Patient received 119 ml optiray 320 of IV contrast COMPARISON: CT Cervical soft tissues from 04-24-2023. FINDINGS: VASCULATURE: Right common carotid artery: Unremarkable. No occlusion or significant stenosis. No dissection. Right internal carotid artery: Unremarkable. Extracranial segment is patent with no occlusion or significant stenosis. No dissection. Right external carotid artery: Unremarkable. No occlusion. Right vertebral artery: Unremarkable. No occlusion or significant stenosis. No dissection. Left common carotid artery: Unremarkable. No occlusion or significant stenosis. No dissection. Left internal carotid artery: Unremarkable. Extracranial segment is patent with no occlusion or significant stenosis. No dissection. Left external carotid artery: Unremarkable. No occlusion. Left vertebral artery: Unremarkable. No occlusion or significant stenosis. No dissection. NECK: Bones/joints: Findings concerning for osteomyelitis of the colitis. There is dehiscence of the inferior left maxilla. No acute fracture. Severe spinal canal stenosis at C6-7. Soft tissues: Prominent mediastinal lymph nodes. Lung apices: Clear. CAROTID STENOSIS REFERENCE USING NASCET CRITERIA: % ICA stenosis = (1 - narrowest ICA diameter/diameter of distal cervical ICA) x 100. Mild - <50% stenosis. Moderate - 50-69% stenosis. Severe - 70-94% stenosis. Near occlusion - 95-99% stenosis. Occluded - 100% stenosis. IMPRESSION: Negative CTA neck. 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 Electronically signed by: Nadya Steel MD 02/21/24 01:22 AM Venous Doppler Study 02/20/24 21:38 Exam(s): US VENOUS BILATERAL LOWER EXTREMITIES EXAM: US Duplex Bilateral Lower Extremities Veins CLINICAL HISTORY: Reason for exam: Bilateral leg pain, eval DVT. TECHNIQUE: Real-time duplex ultrasound scan of the bilateral lower extremity veins integrating B-mode two-dimensional vascular structure, Doppler spectral analysis, color flow Doppler imaging and compression. COMPARISON: No relevant prior studies available. FINDINGS: Right deep veins: Unremarkable. No DVT in the right common femoral, femoral, proximal deep femoral or popliteal veins. The veins demonstrate normal color flow, are normally compressible, with normal phasic flow and/or augmentation response. Right superficial veins: Unremarkable. No thrombus in the visualized right great saphenous vein. Left deep veins: Unremarkable. No DVT in the left common femoral, femoral, proximal deep femoral or popliteal veins. The veins demonstrate normal color flow, are normally compressible, with normal phasic flow and/or augmentation response. Left superficial veins: Unremarkable. No thrombus in the visualized left great saphenous vein. Soft tissues: No acute findings. No popliteal cyst. IMPRESSION: Normal bilateral lower extremity duplex venous ultrasound. Electronically signed by: Denny Beckwith MD 02/21/24 03:47 AM Face MRI 02/21/24 02:25 MR face wo/w con HISTORY: Abnormal head CT. eval clivus osteomyelitis TECHNIQUE: Multiplanar multisequence MRI of the face was performed both before and after the intravenous administration of 5.5 cc of Gadavist contrast. COMPARISON STUDY: CT neck 12/25/2023 and 04/24/2023. FINDINGS: Trace fluid within the right maxillary sinus and mild mucosal thickening within the frontal sinuses and residual ethmoid air cells. Small amount of debris within the anterior aspect of the left maxillary sinus which d emonstrates a 9 mm T2 hyperintense, T1 hypointense slightly enhancing nodule at the anterior wall. This is best seen on axial image 23. There has been prior resection of the majority the posterior wall of the left maxillary sinus. Fluid levels resulting in near complete opacification of the residual sphenoid sinuses. There is diffuse signal abnormality with enhancement and a focal gas/fluid collection at the clivus measuring 22 x 17 mm best seen on axial image 20. There appears to be an associated nondisplaced pathologic fracture at the base of the clivus. The destructive change at the clivus favors an osteomyelitis which has progressed in the interval. Large bilateral mastoid effusions persist. There is edema and enhancement within the bilateral web systems developer spaces most pronounced on the left. This involves the bilateral pterygoid muscles as well as the left masseter muscle. There is abnormal signal and enhancement within the junction of the left zygomatic arch and lateral wall the maxillary sinus best seen on image 21 with surrounding enhancement. This could represent an additional site of osteomyelitis. Recurrent infiltrative malignancy at the clivus, web systems developer spaces, and left zygomatic arch with be difficult to exclude due to the extensive signal abnormality/enhancement. Small focus of encephalomalacia within the anterior frontal lobes again noted. However, these areas demonstrate mild enhancement. There is also minimal dural enhancement at the anterior frontal lobes. Therefore, this is concerning for an associated cerebritis/meningitis. No evidence for intracranial abscess. There is also a focal gas and fluid collection along the left side of the clivus on axial image 19 which measures 11 mm. This is in the location of the left eustachian tube has also progressed in the interval. This could represent an additional area of abscess. The orbits are unremarkable. The major vascular flow-voids at the skull base are maintained. IMPRESSION: 1. There is diffuse signal abnormality with enhancement and a focal gas/fluid collection at the clivus measuring 22 x 17 mm. Therefore, this favors an osteomyelitis at the clivus with an associated abscess. This is likely due to extension from the opacified sphenoid sinuses. There appears to be an associated nondisplaced pathologic fracture at the base of the clivus. Overall, this has progressed in the interval. 2. There is edema and enhancement within the bilateral web systems developer spaces most pronounced on the left. This involves the bilateral pterygoid muscles as well as the left masseter muscle. This favors associated infection. 3. There is abnormal signal and enhancement within the junction of the left zygomatic arch and lateral wall of the left maxillary sinus with surrounding enhancement. This could represent an additional site of osteomyelitis. 4. However, recurrent infiltrative malignancy at the clivus, web systems developer spaces, and left zygomatic arch with be difficult to exclude due to the extensive signal abnormality/enhancement. 5. Small foci of encephalomalacia within the anterior frontal lobes again noted. However, these areas demonstrate mild enhancement. There is also minimal dural enhancement at the anterior frontal lobes. Therefore, this is concerning for an associated cerebritis/meningitis. No evidence for intracranial abscess. 6. There is a 9 mm nodule at the anterior aspect of the left maxillary sinus which demonstrates mild enhancement. This could represent recurrent malignancy or retention cyst. 7. Large bilateral mastoid effusions persist. ACT 112: Negative or not required by law. Electronically signed by: Rowdy Perez M.D. 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 Patient is being admitted for hyponatremia and osteomyelitis management. She is PEG tube dependent for feedings at baseline. Acute Hyponatremia - Recently admitted 02/13-02/17 for hyponatremia to 121 - Na 129 on admission, most recent 138 (6 -On chronic steroids secondary to giant cell arteritis and microscopic colitis. Presentation is concerning for adrenal insufficiency. - AM Cortisol 11.93, started on steroid therapy 02/19-02/21 Solucortef 50 mg Q12 02/21-02/22 Solucortef 25 mg Q12 02/22-02/23 Solucortef 12.5 mg Q12 02/23 Transitioned to PO Cortef (hydrocortisone) 10 mg Q12. Goal to be on PO Cortef daily & maintain Na level. -At time of discharge we will send home on hydrocortisone 20 mg in the morning and 10 mg in the afternoon. Should follow-up with endocrinology to discuss further treatment for adrenal insufficiency. - Follow PEG flushes inpatient Osteomyelitis of Clivus, Zygomatic arch, and Wall of Maxillary Sinus - Noted on initial CT & characterized by Facial MRI. Progressed nondisplaced pathologic fracture of the clivus. Edema/enhancement several areas including web systems developer spaces, pterygoid muscle, zygomatic arch, sinuses. 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 -Appreciate ID consult: -Switch vancomycin to daptomycin ~8mg/kg (400mg) IV daily (baseline CPK 19) - cont for 6 weeks -Continue cefepime 2g IV q8h (can be 6g IV continuous infusion daily for ease of administration outpatient) - cont for 6 weeks -Continue metronidazole 500mg q8h (can be changed to PO) may consider discontinuation after 3 weeks to avoid adverse effects -Monitor weekly with outpatient weekly CBC w diff, CMP, ESR, CRP, CPK while on IV abx - As long as pt is stable and no systemic symptoms, advised to treat the oste omyelitis and follow up with [facility] as an outpatient. Patient will contact [facility] for appointment. - PICC line will be placed today for home antibiotic treatment. - In the process of coordinating home health services for home IV antibiotics. Per case management, the goal is to have services set up hopefully by tomorrow. - Home Nasal Ciprofloxacin, Gentamicin, and Dexamethasone rinses held during mission. Would recommend from using dexamethasone rinses while on IV antibiotics. -Should follow-up with PCP and [facility]. Should discussed weekly labs with PCP until able to get in with ENT. Total Time Total Time Spent Total Time Spent (In Minutes): Please refer to attendings attestation Discharge Plan Discharge Items Patient Disposition: Home - Home Health Services Reason For Visit: HYPONATREMIA, OSTEOMYELITIS Discharge Diagnosis: Acute osteomyelitis of facial bone Condition on Discharge: Good Activity: Resume your previous activity Non-emergency contact: Primary Care Provider Call non-emergency contact if: you have any medication questions, your pain is unusual for you and your temperature is above 101.5 [place] [facility] [place] (Adrenal insufficiency) [facility] [place] Group] (Acute osteomyelitis of facial bone) Maday Pride MD [Primary Care Provider] - 02/28/24 9:00 am Diet: Nothing by Mouth and Other - See Diet Comment Diet Comment: tube feeds Addtl Attending Provider Instructions: You were admitted to the hospital for facial osteomyelitis. You were treated with IV antibiotics and are getting better. A discharge summary will be sent to your primary care physician to ensure continuity of care. Please bring this discharge summary with you to your next office appointment so that your provider can review it at that time. Follow-up appointments: * Make a follow-up appointment with your PCP within the next week. It is very important that you follow up with them shortly after discharge from the hospital. * Make a follow-up appointment with [facility]. It is important for you to reach out to them and set up this appointment. * Make a follow-up appointment with [facility] endocrinology. It is important for you to reach out to them and set up this appointment. * You will need weekly CBC w diff, CMP, ESR, CRP, and CPK while on IV antibitoics. * Keep all your follow-up appointments as already scheduled. If you cannot make an appointment, notify your provider. Medications: Your medication list has been reviewed and reconciled upon discharge to ensure accuracy and continuity of care. An updated list of all your medications is included with your hospital discharge paperwork. Please review this list closely, and make note of any changes. * You will be sent home on daptomycin (400mg) IV daily for 6 weeks. * You will be sent home on cefepime (2g) IV every 8 hours for 6 weeks. * We sent a new medication called metronidazole to your pharmacy. Take metronidazole 500mg every 8 hours for 3 weeks. * We sent a new medication called hydrocortisone to your pharmacy. Take hydrocortisone 20mg (2 tabs) in the morning, then hydrocortisone 10mg (1 tab) in the afternoon. * If you have any issues filling these prescriptions, please call [phone] and ask to leave a message for Dr. Lombardo. * Take your medications as instructed; do not skip a dose of your medicines. Make sure all of your doctors know every medicine you are taking (including ctio-fsz-cztoxom medicines, vitamins, and supplements). Call your primary care provider before taking any new medicines (including over- the-counter medicines, vitamins, and supplements), because some of these may interact with your current medications, or may make your symptoms worse. Tell your primary care provider if you cannot afford your medications. CONTACT YOUR PRIMARY CARE PROVIDER if you experience any of the following: * Worsening of symptoms * Fever, chills, or fatigue * Difficulty following your treatment plan, or difficulty taking medications CALL 911 OR GO TO THE EMERGENCY DEPARTMENT if you experience any of the following: * Sudden, severe abdominal pain or nausea/vomiting * Severe chest pain, or chest pain that radiates (moves) to your jaw or arm * Sudden, severe shortness of breath or difficulty breathing Thank you for allowing us to participate in your care. Pending Studies at Discharge: No Stand-Alone Forms: [facility] [employer], Smoking Cessation Medications and DC Order Prescriptions: New Advanced Probiotic 625 mg (10 billion cell) Capsule 1 cap PO DAILY 30 Days Qty: 30 1RF hydrocortisone [Cortef] 10 mg Tablet See Rx Instructions .ROUTE .COMPLEX 30 Days Qty: 90 0RF Rx Instructions: Take 20mg (2 tabs) in the AM, Take 10mg (1 tab) at 1400 (2:00pm) metronidazole 500 mg tablet 500 mg PO Q8H 21 Days Qty: 63 0RF Continued estradiol 0.01 % (0.1 mg/gram) cream 1 g PV 2XWK Qty: 42.5 3RF Patient Comments: devorah vásquez Rx Instructions: Insert 1/4 applicator vaginally twice a week. famotidine 40 mg/5 mL (8 mg/mL) suspension for reconstitution 40 mg feeding tube BID Qty: 300 5RF atorvastatin [Lipitor] 10 mg tablet 10 mg feeding tube HS Qty: 90 3RF levothyroxine 50 mcg capsule 50 mcg PO QAM Qty: 90 3RF Rx Instructions: feeding tube trazodone 50 mg tablet 50 mg feeding tube HS Qty: 90 3RF Banatrol TF 5 gram-45 kcal/60 mL liquid in packet 60 ml PEG BID Rx Instructions: Medication is available over the counter 02/19-Patient had to order so she hasn't started it yet Zyrtec 10 mg capsule 10 mg PO DAILY mupirocin 2 % ointment 1 applic topical BID PRN (Reason: nasal dryness or bleeding) azelastine 137 mcg (0.1 %) aerosol,spray 2 spray intranasal BID Rx Instructions: USE 2 SPRAYS IN EACH NOSTRIL 2 TIMES A DAY oxyquinoline-sod.lauryl sulfat 0.025-0.01 % gel 1 ea PV QPM PRN (Reason: Other) Patient Comments: when i have to take pessary out to clean it at least 2x per month & 2-3 x wk use 1 gram to keep ph balanced. Rx Instructions: 1 ea vaginally with pessary placement; Jevity 1.5 Driss 0.06 gram-1.5 kcal/mL liquid 1 ea feeding tube DAILY Patient Comments: depends on what can tolerate Rx Instructions: Jevity 1.5 5 cartons (1200mL total) daily via PEG. Administer 1 carton BID and 1.5 cartons BID = 4 feeds/day [id number]/Laxasperse Cap capsule 1 dose HS Patient Comments: goes in the sinus rinse Rx Instructions: Mix 1 cap & 1 saline pkt w/ 6oz distilled h20 in bottle. Irrigate 3oz each nasal passage daily. Autologous 20 % Solution 1 dose OPB 6XD Patient Comments: for eyes ciprofloxacin (mixture) 1 cap intranasal UD Rx Instructions: EMPTY 90 MG CAPSULE INTO 6 OZ. OF DISTILLED WATER, NASAL WASHING TID. ipratropium bromide 21 mcg (0.03 %) spray,non-aerosol 2 spray INTRANASAL BID PRN (Reason: Other) Rx Instructions: administer into each nostril cholecalciferol (vitamin D3) [Vitamin D3] 25 mcg (1,000 unit) capsule 12.5 mcg feeding tube QAM Rx Instructions: 1/2 tablet dose desloratadine [Clarinex] 5 mg Tablet 5 mg PO DAILY Tyrvaya 0.03 mg/spray spray, metered, non-aerosol 1 spray INTRANASAL BID Rx Instructions: for dry eyes Probiotic 1 cap PO BID Rx Instructions: unknown strength qhdwydp-zwctpg-sxfoyt oil 0.1287-788 mg/g Gel 5 g TOPICAL QPM Discontinued triamcinolone acetonide [Nasacort] 55 mcg aerosol,spray 2 spray INTNAS QAM Discharge Orders: Discharge Order (Routine); Ordered 02/26/24 Ordered By: Saul Lombardo Admission Data Admit Date/Time: 02/21/24 02:25 Attending Provider: Denny Keller Admit Provider: Baldev Hines Primary Care Provider: Maday Pride Other Providers: Callum Norris; Julio Hudson; [facility]; Marcio,Fax Other Interventions: Discharge Summary Assessment (RN) Last Done: 02/26/24 13:39 Supervising Physician Co-Signing Physician Notes I personally examined the patient and verified all beltran points of history and exam, discussed case, and agree with decision making with Dr Lombardo Feels okay with going home. Discussed plans. No further questions. Vitals noted, in general she is awake and alert pleasant no distress. HEENT normocephalic atraumatic mucous membranes moist. Breathing unlabored no accessory muscle use good effort. Skin without rashes pallor or icterus. Neuro without focal deficits. Headache - MRI findings are chronic as per discussion with Ana Mar[facility] ENT. advised to treat osteomyelitisSee below Osteomyelitis of Clivus, Zygomatic arch, and Wall of Maxillary sinus - ID input greatly appreciated Antibiotics set upFlagyl for about 3 more weeks, IV antibiotics through 04/02. Outpatient ENT follow-up (she notes she will set up to coordinate with her schedule) Hyponatremia - At last admission, she had much worse diarrhea, and the working diagnosis was that her hyponatremia was from salt wasting from her diarrhea, but that the diarrhea was possibly a flareup of her microscopic colitis made possible in part by the weaning of her steroids. Increasing steroids improved both the diarrhea and her sodium. Now, however, once the steroids have been weaned off again, her sodium dropped yet againbut this time without accompanying diarrheamaking it seem more plausible that she has a degree of adrenal insufficiency. Currently being maintained on hydrocortisonewe will con tinue this for now. PCP notes that she will be able to manage this for now, but would appreciate endocrine referral. nurse navigator has set this in motion. Nutrition - via PEG Stable for home --IV antibiotics are set up
--- NOTE | 2024-02-26 18:36 | Billing Data ---
Date of Service February 26, 2024 Coding Level of Care Code 48742 IN/OBS DISCH 30 MIN/LESS
== END 2024-02-26 15:24 | disposition home health service (06) | DRG 539 ==
LOC: ED 20:49 → SUATTDRO 02-21 02:25 → EDINP 02-21 02:25 → 2N 02-21 03:39